=== PATIENT | male | born 1935 | race Caucasian/White ===

== ENCOUNTER 2020-09-12 10:36 | Outpatient (REF) | payer MEDICARE, SELFPAY ==
--- NOTE | 2020-09-12 | US_ITS ---
EXAMINATION: US THYROID CLINICAL INFORMATION: Thyroid nodule. COMPARISON: Ultrasound soft tissue head/neck thyroid dated 08/26/2018 and 02/12/2017. CT neck with intravenous contrast dated 09/04/2010. TECHNIQUE: Linear transducer rob-scale and color Doppler examination with attention to the region of the thyroid. FINDINGS: SIZE: Measurements of the thyroid lobes and nodules are given in sagittal, anteroposterior and transverse dimensions respectively. Right Thyroid Lobe: 5.0 x 2.0 x 1.8 cm, volume 9.7 mL. Previously 4.1 x 2.2 x 2.1 cm, volume 10.1 mL. Parenchyma: The gland echotexture is heterogeneous. Thyroid vascularity is normal. Left Thyroid Lobe: 4.7 x 1.9 x 1.6 cm, volume 7.7 mL. Previously 3.6 x 2.3 x 1.7 cm, volume 7.3 mL. Parenchyma: The gland echotexture is heterogeneous. Thyroid vascularity is normal. Isthmus: 0.3 cm in maximum AP dimension. Previously 0.4 cm. RIGHT THYROID LOBE: There are 3 nodules seen. 1. Location: Superior. Size: 0.6 x 0.4 x 0.5 cm. Previous: 0.7 x 0.5 x 0.5 cm. Nodule characteristics: Isoechoic, well-circumscribed, solid nodule with intranodular flow but no microcalcification. 2. Location: Inferior. Size: 0.5 x 0.4 x 0.5 cm. Previous: This nodule is new. Nodule characteristics: Heterogeneous, hypoechoic smoothly marginated solid nodule with intranodular flow but no microcalcification. 3. Location: Inferior. Size: 0.9 x 0.7 x 0.7 cm. Previous: 0.7 x 0.7 x 0.9 cm. Nodule characteristics: Hypoechoic smoothly marginated solid nodule with intranodular flow but no microcalcification. ISTHMUS: No nodules. LEFT THYROID LOBE: There are 2 nodules seen. 1. Location: Superior. Size: 1.8 x 0.9 x 1.5 cm. Previous: 1.6 x 0.8 x 1.1 cm. Nodule characteristics: Heterogeneous hypoechoic smoothly marginated solid nodule with no intranodular flow or microcalcification. 2. Location: Inferior. Size: 1.2 x 1.3 x 1.5 cm. Previous: 1.5 x 1.3 x 1.4 cm. Nodule characteristics: Hypoechoic smoothly marginated solid nodule with no microcalcification or internal flow. NODES: Normal size subcentimeter left neck lymph node seen, 7 mm in greatest dimension with an echogenic central fatty hilum, a benign morphologic feature.. US/US thyroid IMPRESSION: Solid bilateral thyroid nodules are present. Most are hypoechoic with smooth circumscribed margins. These would be considered intermediate suspicion for malignancy with recommendations given below. Fine-needle aspiration could be considered for the nodules greater than 1 cm in diameter including 1.8 cm and 1.5 cm nodules in the left lobe of the thyroid. Various management parameters for solitary thyroid nodules are in the literature. According to the latest 2016 [place] [employer] guidelines, recommendations for thyroid nodules are as follows: Intermediate suspicion: Hypoechoic solid nodule with smooth margins without microcalcification, extrathyroidal extension, or taller than wide shape. Estimated risk of malignancy 10-20%. Recommendation: FNA at > 1 cm. Recommend repeat ultrasound in 12-24 months for nodules measuring less than 1 cm.
== END 2020-09-12 10:37 | disposition home or self-care (01) ==
LOC: HO.US 10:36
PROVIDERS: Visit Provider Internal Medicine
DX: E04.1 Nontoxic single thyroid nodule (principal)
CPT/HCPCS: 76536

== ENCOUNTER 2020-09-19 14:58 | Outpatient (REF) | payer MEDICARE, SELFPAY ==
[2020-09-19 16:33] LABS: Thyroid Stimulating Hormone 0.92 uIU/mL (0.32-4.0)
== END 2020-09-19 14:59 | disposition home or self-care (01) ==
LOC: HO.LAB 14:58
PROVIDERS: PCP Internal Medicine; Visit Provider Internal Medicine
DX: E04.1 Nontoxic single thyroid nodule (principal)
CPT/HCPCS: 84443

== ENCOUNTER 2020-10-12 12:57 | Outpatient (REF) | payer MEDICARE, SELFPAY ==
--- NOTE | 2020-10-12 13:27 | XR_ITS ---
EXAMINATION: XR CHEST CLINICAL INFORMATION: Cough COMPARISON: 01/07/2017 TECHNIQUE: 2 views of the chest were obtained. FINDINGS: Lungs are well expanded and without acute disease. There is an old thin linear focus of scarring at the right apex. No interstitial infiltrate, consolidation or mass. Cardiomediastinal silhouette has normal size and contour. There appears to be an old fracture deformity of the right lateral fourth rib. Diffuse idiopathic skeletal hyperostosis as manifest by flowing anterior ligament ossification of the thoracic spine. XR/XR chest 2V IMPRESSION: No evidence of pneumonia. No acute cardiopulmonary findings compared to 01/07/2017.
[2020-10-12 13:35] LABS: MANUAL DIFF FLAG NO
[2020-10-12 13:38] LABS: Basophils Percent Auto 0.4 % (0-2); Eosinophils Absolute Auto 0.1 X10*3/uL (0.0-0.4); Eosinophils Percent Auto 2.1 % (0-4); Hematocrit 38.7 % (42-52); Imm Gran Abs Auto 0.01 X10*3/uL (0.00-0.03); Imm Gran Pct Auto 0.2 % (0.0-0.4); Lymphocytes Absolute Auto 1.7 X10*3/uL (1.2-4.9); Mean Corpuscular HGB Conc 33.6 g/dl (31.0-36.0); Mean Corpuscular Hemoglobin 33.8 pg (27.0-33.0); Mean Corpuscular Volume 100.5 fL (80-98); Mean Platelet Volume 9.8 fL (9.4-12.4); Monocytes Absolute Auto 0.5 X10*3/uL (0.1-1.2); Monocytes Percent Auto 10.3 % (2-11); Neutrophils Absolute Auto 2.8 X10*3/uL (2.0-8.3); Platelet Count 154 X10*3/uL (160-400); Red Blood Count 3.85 X10*6/uL (4.60-5.80); Red Cell Distribution Width 13.8 % (11.0-16.0); White Blood Count 5.2 X10*3/uL (4.8-10.8)
[2020-10-12 14:05] LABS: Prothrombin Time 11.8 SEC (10.8-13.0)
[2020-10-12 14:08] LABS: Partial Thromboplastin Time 27.2 SEC (24.1-38.0)
== END 2020-10-12 12:58 | disposition home or self-care (01) ==
LOC: HO.LAB 12:57
PROVIDERS: PCP Internal Medicine; Visit Provider Internal Medicine
DX: Z01.818 Encounter for other preprocedural examination (principal); D69.6 Thrombocytopenia, unspecified; R05 Cough
CPT/HCPCS: 36415; 71046; 85025; 85610; 85730

== ENCOUNTER → 2021-07-05 13:37 | Outpatient (BNVA) | payer MEDICARE, SELFPAY | PROVIDERS: PCP Internal Medicine; Visit Provider Internal Medicine Cardiovascular Disease | DX: I49.3 Ventricular premature depolarization (principal); I10 Essential (primary) hypertension | CPT/HCPCS: 93005; 99212 ==

== ENCOUNTER → 2021-08-22 12:03 | Outpatient (BNVA) | payer MEDICARE, SELFPAY | PROVIDERS: PCP Internal Medicine; Referring Provider Internal Medicine; Visit Provider Internal Medicine Cardiovascular Disease | DX: I49.3 Ventricular premature depolarization (principal); I10 Essential (primary) hypertension | CPT/HCPCS: 99212 ==

== ENCOUNTER → 2022-02-25 13:47 | Outpatient (BNVA) | payer MEDICARE, SELFPAY | PROVIDERS: PCP Internal Medicine; Referring Provider Internal Medicine; Visit Provider Internal Medicine Cardiovascular Disease | DX: I49.3 Ventricular premature depolarization (principal); I10 Essential (primary) hypertension; Z79.899 Other long term (current) drug therapy | CPT/HCPCS: 99212 ==

== ENCOUNTER → 2022-08-26 14:20 | Outpatient (BNVA) | payer MEDICARE, SELFPAY | PROVIDERS: PCP Internal Medicine Rheumatology; Visit Provider Internal Medicine Cardiovascular Disease | DX: I10 Essential (primary) hypertension (principal); R07.9 Chest pain, unspecified | CPT/HCPCS: 93005; 99212 ==

== ENCOUNTER → 2022-10-04 09:59 | Outpatient (REF) | payer MEDICARE, SELFPAY ==
--- NOTE | ~2022-10-04 | NM_ITS ---
Lexiscan Myocardial perfusion study Indication: Chest pain to evaluate for myocardial ischemia Technique: The patient was brought in for an Lexiscan perfusion study on 10/04/2022. Patient performed exercise as per Lexiscan protocol and was injected 30 mCi of sestamibi was given intravenously as per protocol.. Images were obtained using the SPECT gamma camera interlaced with the gating device. Images were obtained in supine position. Resting perfusion study was performed on 10/07/2022. Patient was administered 30 mCi of sestamibi intravenously at rest. Images were then obtained in supine position. Images obtained with and without CT attenuation. Total DLP 116 mGy-cm. Images were processed with the software and compared side to side in short axis, horizontal long axis and vertical long axis views. Findings: The stress perfusion study showed both attenuated as well as non attenuated corrected images show normal uptake of radiotracer in all segments of LV myocardium.. The gated study shows normal LV systolic function with calculated LVEF of greater than 70%. LV cavity is normal in size. The gated study shows normal systolic wall thickening and contraction of all segments. There is no transient ischemic dilation. Resting study shows non attenuated images show normal uptake of radiotracer in all segments of LV myocardium. Gating at rest was not performed due to frequent PVCs. The findings are consistent with normal myocardial perfusion. NM/NM francisco j perf SPECT rest & str Impression: 1. Normal myocardial perfusion 2. Gated LVEF is greater than 70% 3. Transient ischemic dilatation not present EKG was nondiagnostic for ischemia
--- NOTE | 2022-10-04 09:59 | CA_ITS ---
Acquisition Time: 2022-10-04 10:16:05 Total Exercise Time: 00:01:03 Test Indications: CHEST PAIN Medications: Protocol: MOD KEITH Max HR: 096 BPM 72% of Pred: 133 BPM Max BP: 158/058 mmHG Max Work Load: 1.4 METS Exercise stress test with exercise 1 min 3 sec of Modified Keith protocol ( speed had been reduced to 1.4MPH) and patient needed to stop due to fatigue and inability to keep up with speed of treadmill. He was assisted to sitting position. Testing changed to a pharmacological stress test with Lexiscan injection, while sitting and kicking his legs, without anginal symptoms, with isolated PVCs, with normotensive response to injection, with nondiagnostic EKG for ischemia. In recovery he reported fatigue that was treated with Aminophylline 75mg IVP to reverse Lexiscan with resolution of symptom. Nuclear images pending. Test reviewed with Dr Mosley. Referred By: Carmelo Mosley Overread By: RANJIT CALERO
== END ==
LOC: HO.CARD 09:59
PROVIDERS: PCP Internal Medicine; Visit Provider Internal Medicine Cardiovascular Disease
DX: R07.9 Chest pain, unspecified (principal)
CPT/HCPCS: 78452; 93017; A9500; J0280; J2785

== ENCOUNTER → 2023-01-22 13:04 | Outpatient (BNVA) | payer MEDICARE, SELFPAY | PROVIDERS: PCP Obstetrics & Gynecology; Visit Provider Internal Medicine Cardiovascular Disease | DX: R07.9 Chest pain, unspecified (principal); I49.3 Ventricular premature depolarization; I10 Essential (primary) hypertension | CPT/HCPCS: 99212 ==

== ENCOUNTER → 2023-04-22 14:37 | Outpatient (BNVA) | payer MEDICARE, SELFPAY | PROVIDERS: PCP Internal Medicine; Referring Provider Internal Medicine; Visit Provider Nurse Practitioner Family | DX: R07.9 Chest pain, unspecified (principal); I49.3 Ventricular premature depolarization; I10 Essential (primary) hypertension; K21.9 Gastro-esophageal reflux disease without esophagitis; Z79.899 Other long term (current) drug therapy | CPT/HCPCS: 93005; 99212 ==

== ENCOUNTER 2023-07-03 11:17 | Outpatient (REF) | payer MEDICARE, SELFPAY ==
[2023-07-03 11:34] LABS: MANUAL DIFF FLAG NO
[2023-07-03 11:58] LABS: Basophils Percent Auto 0.3 % (0-2); Eosinophils Absolute Auto 0.2 X10*3/uL (0.0-0.4); Eosinophils Percent Auto 2.7 % (0-4); Hematocrit 36.5 % (42.0-52.0); Hemoglobin 12.3 g/dl (14.0-18.0); Imm Gran Abs Auto 0.01 X10*3/uL (0.00-0.03); Imm Gran Pct Auto 0.2 % (0.0-0.4); Lymphocytes Percent Auto 32.7 % (20-40); Mean Corpuscular HGB Conc 33.7 g/dl (31.0-36.0); Mean Corpuscular Hemoglobin 33.6 pg (27.0-33.0); Mean Corpuscular Volume 99.7 fL (80.0-98.0); Mean Platelet Volume 10.4 fL (9.4-12.4); Monocytes Absolute Auto 0.6 X10*3/uL (0.1-1.2); Neutrophils Absolute Auto 3.3 x10*3/uL (2.0-8.3); Neutrophils Percent Auto 54.1 % (45-73); Platelet Count 156 X10*3/uL (160-400); Red Blood Count 3.66 X10*6/uL (4.60-5.80); Red Cell Distribution Width 13.3 % (11.0-16.0)
[2023-07-03 12:49] LABS: Anion Gap 11 (12-20); Blood Urea Nitrogen 20 mg/dL (9-16); Calcium 9.3 mg/dL (8.4-10.2); Carbon Dioxide 28 mmol/L (22-29); Chloride 105 mmol/L (96-108); Estimated Glomerular Filt Rate > 60; Glucose Random 103 mg/dL (60-115); Potassium 4.1 mmol/L (3.3-5.1); Sodium 140 mmol/L (135-145)
== END 2023-07-03 11:18 | disposition home or self-care (01) ==
LOC: HO.LAB 11:17
PROVIDERS: Visit Provider Nurse Practitioner Family
DX: R07.9 Chest pain, unspecified (principal); I21.4 Non-ST elevation (NSTEMI) myocardial infarction; R93.89 Abnormal findings on diagnostic imaging of other specified body structures
CPT/HCPCS: 36415; 80048; 85025; 85610

== ENCOUNTER → 2023-07-17 23:59 | Outpatient (BNV) | payer MEDICARE, SELFPAY | PROVIDERS: PCP Internal Medicine; Visit Provider Internal Medicine Cardiovascular Disease | DX: I21.4 Non-ST elevation (NSTEMI) myocardial infarction (principal) | CPT/HCPCS: 93458; 93571; 99152 ==

== ENCOUNTER 2023-08-04 13:36 | Outpatient (AMB) | payer MEDICARE, SELFPAY ==
[2023-08-04 13:38] VITALS: BP 140/72; PULSE 57; BMI 30.6
--- NOTE | 2023-08-04 13:38 | A.OFFVIS_ITS ---
Intake Vital Signs 08/04/23 13:38 Height 5 ft 11 in Weight 219 lb 9.286 oz BMI 30.6 BP 140/72 H Blood Pressure Location Rt brachial Position Sitting Pulse 57 Pulse Source Pulse Oximeter Intake Visit Reasons: 3 mth f/up per dc Intake Note: 3 month f/u Allergies Penicillin Allergy (Unknown, Uncoded 04/22/23 14:41) hives Medication List - Last Reconciled 08/04/23 by Carmelo Mosley MD aspirin (Adult Low Dose Aspirin) 81 mg PO DAILY atorvastatin 40 mg PO DAILY cholecalciferol (vitamin D3) 25 mcg PO DAILY clopidogrel 75 mg PO DAILY hydrochlorothiazide 12.5 mg PO DAILY lorazepam 1 mg PO TID PRN metoprolol succinate ER mg PO pantoprazole 40 mg PO DAILY phenytoin sodium extended (Dilantin Extended) 100 mg PO TID saw palmetto 1,350 mg PO BID tamsulosin 0.4 mg PO DAILY vitamin B complex (B Complex-Vitamin B12 tablet) 1 tab PO DAILY HPI HPI Comments History of Present Illness Details 88-year-old gentleman who is presenting for follow-up. He had NSTEMI in setting of septic shock and significantly elevated troponin levels with some dynamic EKG changes. He underwent stress testing followed by coronary CTA showed LAD disease. After discussion he was taken for cardiac catheterization. He was noticed to have diffuse LAD disease which on IFR pullback showed did not show any discrete area of stenosis and the gradient was diffuse. He was also not complaining of significant symptoms at the time he came for cardiac catheterization. We decided to medically treat him. His returning and is complaining of fatigue and tiredness. He is saying his starting some physiotherapy and exercise program. His blood pressure control is otherwise good. He is complaining of some numbness in the left hand fingers and will be discussing with his neurologist in 1 week. [facility] Medical History (Updated 08/04/23 @ 14:36 by Carmelo Mosley MD) Abnormal computed tomography angiography (CTA) HTN (hypertension) GERD (gastroesophageal reflux disease) Surgical History History of blepharoplasty History of back surgery History of neck surgery Hx of cataract surgery Family History Father CVD (cardiovascular disease) Social History Alcohol intake: never Patient Tobacco Use Status: Never used Tobacco Review of Systems ENT Reports dizziness Card Denies chest pain, Denies chest pain at rest, Denies chest pain with activity, Denies rapid heart rate, Denies pedal edema, Denies edema, Denies leg edema, Denies lightheadedness, Denies palpitations, Denies dyspnea, Denies dyspnea on exertion and Denies orthopnea Resp Denies cough, Denies dyspnea and Denies dyspnea on exertion GI Denies hematochezia and Denies change in stool character Musc Denies abnormal gait, Reports limited range of motion, Reports muscle cramps, Denies muscle weakness, Denies numbness, Denies radiating pain into limb, Denies stiffness and Denies tingling Neuro Denies abnormal gait, Reports dizziness, Denies numbness and Denies tingling Endo Denies palpitations Physical Exam Vital Signs: Last Vital Signs Pulse 57 08/04/23 13:38 BP 140/72 H 08/04/23 13:38 BMI result Body Mass Index 30.6 GENERAL APPEARANCE: in no acute distress, pleasant. NECK: no carotid bruit, no jugular venous distention. SKIN: no suspicious lesions, warm and dry. HEART: no murmurs, regular rhythm. LUNGS: clear to auscultation bilaterally. ABDOMEN: soft, nontender. PERIPHERAL PULSES: equal. NEUROLOGIC: No gross deficits, AAO X 3 Assessment & Plan Assessment & Plan (1) Essential hypertension: Code(s): I10 - Essential (primary) hypertension (2) Coronary artery disease: Code(s): I25.10 - Atherosclerotic heart disease of [place] coronary artery without angina pectoris (3) Stable angina: Code(s): I20.89 - Other forms of angina pectoris Plan 88-year-old gentleman with stable coronary artery disease. He had NSTEMI in the setting of septic shock. Cardiac catheterization has shown diffuse gradient across the LAD and no focal area of stenosis. Angiographically the LAD did not look critical or severe. He has no significant symptoms currently. I have advised him to stop the Plavix and take aspirin only. He is on atorvastatin 40 mg daily. Blood pressure control is reasonable. Left hand numbness is related to neck issues and he will discuss with his neurologist. Thank you for allowing me to participate in the care of your patient. Please f eel free to contact me if you have any questions. Coding Level of Care Code Est Pt Level 4 (01432) Diagnoses Essential hypertension I10 Coronary artery disease I25.10 Stable angina I20.89
== END 2023-08-04 14:02 | disposition home or self-care (01) ==
PROVIDERS: PCP Internal Medicine; Visit Provider Internal Medicine Cardiovascular Disease
DX: I10 Essential (primary) hypertension (principal); I25.10 Atherosclerotic heart disease of native coronary artery without angina pectoris; I20.89 Other forms of angina pectoris
CPT/HCPCS: 99214

== ENCOUNTER → 2023-08-04 13:36 | Outpatient (BNVA) | payer MEDICARE, SELFPAY | PROVIDERS: PCP Internal Medicine; Visit Provider Internal Medicine Cardiovascular Disease | DX: I21.4 Non-ST elevation (NSTEMI) myocardial infarction (principal); R65.21 Severe sepsis with septic shock; I25.118 Atherosclerotic heart disease of native coronary artery with other forms of angina pectoris; I10 Essential (primary) hypertension; I23.7 Postinfarction angina | CPT/HCPCS: 99212 ==

== ENCOUNTER 2023-11-10 12:51 | Outpatient (AMB) | payer MEDICARE, SELFPAY ==
[2023-11-10 12:57] VITALS: BP 120/62; PULSE 62; BMI 31.1
--- NOTE | 2023-11-10 12:57 | A.OFFVIS_ITS ---
Intake Vital Signs 11/10/23 12:57 Height 5 ft 11 in Weight 222 lb 10.67 oz BMI 31.1 BP 120/62 Blood Pressure Location Lt brachial Pulse 62 Pulse Source Pulse Oximeter Intake Visit Reasons: 3 mth f/up km Investigative Writer Required: No Allergies Penicillin Allergy (Unknown, Uncoded 04/22/23 14:41) hives Medication List - Last Reconciled 11/10/23 by LETTY GomesC aspirin (Adult Low Dose Aspirin) 81 mg PO DAILY atorvastatin 40 mg PO DAILY cholecalciferol (vitamin D3) 25 mcg PO DAILY clopidogrel (Plavix) 75 mg PO DAILY hydrochlorothiazide 12.5 mg PO DAILY lorazepam 1 mg PO TID PRN metoprolol succinate ER mg PO pantoprazole 40 mg PO DAILY phenytoin sodium extended (Dilantin Extended) 100 mg PO TID saw palmetto 1,350 mg PO BID tamsulosin 0.4 mg PO DAILY vitamin B complex (B Complex-Vitamin B12 tablet) 1 tab PO DAILY HPI 3 mth f/up km HPI Details Timothy is an 88-year-old male with past medical history of hypertension, PVCs, right bundle branch block, sepsis with elevated troponins, secondary NSTEMI last spring who recently underwent cardiac catheterization showing moderate LAD stenosis which is managed medically. Today he presents for follow-up sitting in a wheelchair. He tells me he was getting out of a vehicle trying to use his walker and it tipped over causing him to fall and fracture his pelvis. He initially was in rehab however now he is home with physical therapy. He denies much discomfort. No chest discomfort at rest or with activity. No shortness of breath, palpitations, presyncope, syncope, PND, orthopnea or edema. His son and friend are present. They confirm he is taking his medications. [facility] Medical History Abnormal computed tomography angiography (CTA) HTN (hypertension) GERD (gastroesophageal reflux disease) Surgical History History of blepharoplasty History of back surgery History of neck surgery Hx of cataract surgery Family History Father CVD (cardiovascular disease) Social History Alcohol intake: never Patient Tobacco Use Status: Never used Tobacco Review of Systems Const Details: sitting in wheelchair All systems reviewed & are unremarkable except as noted in HPI and below ENT Denies dizziness Card Denies chest pain, Denies chest pain at rest, Denies chest pain with activity, Denies rapid heart rate, Denies pedal edema, Denies edema, Denies leg edema, Denies lightheadedness, Denies palpitations, Denies dyspnea, Denies dyspnea on exertion and Denies orthopnea Resp Denies cough, Denies dyspnea and Denies dyspnea on exertion GI Denies hematochezia and Denies change in stool character Musc Details: recovering from pelvic fracture Reports abnormal gait, Reports limited range of motion, Denies muscle cramps, Denies muscle weakness, Denies numbness, Denies radiating pain into limb, Denies stiffness and Denies tingling Neuro Reports abnormal gait, Denies dizziness, Denies numbness and Denies tingling Endo Denies palpitations Physical Exam Vital Signs: Last Vital Signs Pulse 62 11/10/23 12:57 BP 120/62 11/10/23 12:57 BMI result Body Mass Index 31.1 Const General: cooperative, healthy appearing, comfortable and no acute distress Orientation/consciousness: patient oriented x3 Neck Neck: Yes normal visual inspection Resp Effort & Inspection: normal respiratory effort Auscultation: clear to auscultation bilaterally, no crackles, no rales, no rhonchi and no wheezes Cardio Jugular venous distension: no JVD Rate: regular rate Rhythm: regular rhythm Heart sounds: S1 normal heart sound present, S2 normal heart sound present, no murmurs and no rubs Neuro General: patient oriented x3 Extrem Other: Tight bilateral lower leg edema to the level of his knees, right greater than left General: No normal to inspection and Yes no pedal edema Psych Appearance: grossly normal Mental Status: mental status grossly normal Speech and movement: Normal speech and movement present Assessment & Plan Assessment & Plan (1) Chest pain: Code(s): R07.9 - Chest pain, unspecified Plan: On prior visit reported atypical sounding Chest area discomfort, as well as a intermittent burning in his chest and up to his throat at times. He tells me he has a history of a hiatal hernia and has had reflux issues for a long time. He now follows with GI. Cardiac evaluation has included nuclear stress test done 10/04/2022 showing normal myocardial perfusion imaging, EF 70%. Last echo in our system was done 06/01/2020 showing normal EF and no valve abnormalities. He did have secondary NSTEMI in the setting of sepsis spring 2022. Echo done at [facility] showed EF 65-70% no regional wall motion abnormality. He then had a CTA of the coronary arteries followed by cardiac catheterization which did show moderate LAD is stenosis, iFR 0.91, managed medically. At this time he denies any anginal sounding chest discomfort. Continue aspirin indefinitely. Continue atorvastatin with ideal LDL goal less than 70. Continue metoprolol. Plavix was stopped on last visit however he continued it until he ran out recently. Signs and symptoms of angina reviewed with him. (2) PVC (premature ventricular contraction): Code(s): I49.3 - Ventricular premature depolarization Plan: History of PVCs. A Holter monitor done on 05/08/2020 showed sinus rhythm rate 64, with frequent PVCs, 17%. He has been on metoprolol. Today he denies having any concerning heart palpitations. No PVCs noted on last EKG tracing. Will continue current management. (3) Essential hypertension: Code(s): I10 - Essential (primary) hypertension Plan: Normal range today. He is on hydrochlorothiazide and metoprolol. He has significant bilateral lower leg edema. Will change his hydrochlorothiazide over to Lasix. Plan for labs in 2 weeks. (4) Edema: Code(s): R60.9 - Edema, unspecified Plan: Noted to have significant bilateral lower leg edema. Right greater than left. Mild pinkness but no evidence of clear cellulitis. He is on hydrochlorothiazide. Last echo shows normal EF. This increase could be that he is now sedentary, sitting in a wheelchair and legs are dependent. Will have him stop hydrochlorothiazide and change to low-dose Lasix. Labs in 2 weeks. Reviewed leg elevation, compression stocking use and low-salt diet. BMP, BNP and adding lipids. Cardiology follow-up in 4 months, sooner if needed (5) GERD (gastroesophageal reflux disease): Code(s): K21.9 - Gastro-esophageal reflux disease without esophagitis Plan: Follows with GI Plan Time spent on chart review, documentation, interview and assessment Orders: Orders Lipid Panel Today I25.10 - Atherosclerotic heart disease of [id number] coronary artery without angina pectoris Basic Metabolic Panel Today I10 - Essential (primary) hypertension B Type Natriuretic Peptide Today R60.9 - Edema, unspecified Medications: New furosemide (Lasix) 20 mg PO DAILY 90 tabs 1RF Discontinued hydrochlorothiazide Discontinued Reason: Change Referral Type 12.5 mg PO DAILY 90 tabs 3RF I10 - Essential (primary) hypertension Coding Level of Care Code Est Pt Level 4 (14421) Diagnoses Chest pain R07.9 PVC (premature ventricular contraction) I49.3 Essential hypertension I10 Edema R60.9 GERD (gastroesophageal reflux disease) K21.9 Time Spent (min) 28
== END 2023-11-10 13:35 | disposition home or self-care (01) ==
PROVIDERS: PCP Internal Medicine; Visit Provider Nurse Practitioner Family
DX: R07.9 Chest pain, unspecified (principal); I49.3 Ventricular premature depolarization; I10 Essential (primary) hypertension; R60.9 Edema, unspecified; K21.9 Gastro-esophageal reflux disease without esophagitis
CPT/HCPCS: 99214

== ENCOUNTER → 2023-11-10 12:51 | Outpatient (BNVA) | payer MEDICARE, SELFPAY | PROVIDERS: PCP Internal Medicine; Visit Provider Nurse Practitioner Family | DX: R07.9 Chest pain, unspecified (principal); R60.9 Edema, unspecified; I10 Essential (primary) hypertension; I49.3 Ventricular premature depolarization; K21.9 Gastro-esophageal reflux disease without esophagitis | CPT/HCPCS: 99212 ==

== ENCOUNTER 2023-11-28 14:08 | Outpatient (REF) | payer MEDICARE, SELFPAY ==
[2023-11-28 16:02] LABS: B Type Natriuretic Peptide 169 pg/mL (<100)
[2023-11-28 16:05] LABS: Anion Gap 13 (12-20); Blood Urea Nitrogen 24 mg/dL (9-16); Calcium 9.3 mg/dL (8.4-10.2); Carbon Dioxide 28 mmol/L (22-29); Chloride 107 mmol/L (96-108); Cholesterol 152 mg/dL (<200); Estimated Glomerular Filt Rate > 60; Glucose Random 106 mg/dL (60-115); HDL Cholesterol 42 mg/dL (>40); LDL Cholesterol Calculated 83 mg/dL (<100); Potassium 4.8 mmol/L (3.3-5.1); Sodium 143 mmol/L (135-145); Triglycerides 137 mg/dL (<150)
== END 2023-11-28 14:09 | disposition home or self-care (01) ==
LOC: HO.LAB 14:08
PROVIDERS: Visit Provider Nurse Practitioner Family
DX: I10 Essential (primary) hypertension (principal); R60.9 Edema, unspecified; I25.10 Atherosclerotic heart disease of native coronary artery without angina pectoris
CPT/HCPCS: 36415; 80048; 80061; 83880

== ENCOUNTER 2024-03-17 14:27 | Outpatient (AMB) | payer MEDICARE, SELFPAY ==
--- NOTE | 2024-03-17 14:33 | A.OFFVIS_ITS ---
Vital Signs 03/17/24 14:34 Height 5 ft 11 in Weight 221 lb 5.506 oz BMI 30.9 BP 130/62 Blood Pressure Location Lt brachial Position Sitting Pulse 83 Pulse Source Pulse Oximeter Intake Visit Reasons: 4 mth f/up Bookstore Manager Required: No Accompanied by: Son Allergies Penicillin Allergy (Unknown, Uncoded 04/22/23 14:41) hives Medication List - Last Reconciled 03/17/24 by Carmelo Mosley MD aspirin (Adult Low Dose Aspirin) 81 mg PO DAILY atorvastatin 40 mg PO DAILY cholecalciferol (vitamin D3) 25 mcg PO DAILY furosemide (Lasix) 20 mg PO DAILY lorazepam 1 mg PO TID PRN metoprolol succinate ER 50 mg PO DAILY pantoprazole 40 mg PO DAILY phenytoin sodium extended (Dilantin Extended) 100 mg PO TID saw palmetto 1,350 mg PO BID tamsulosin 0.4 mg PO DAILY vitamin B complex (B Complex-Vitamin B12 tablet) 1 tab PO DAILY HPI Comments Details: 88-year-old gentleman who is presenting for follow-up. He had NSTEMI in setting of septic shock and significantly elevated troponin levels with some dynamic EKG changes. He underwent stress testing followed by coronary CTA showed LAD disease. After discussion he was taken for cardiac catheterization. He was noticed to have diffuse LAD disease which on IFR pullback showed did not show any discrete area of stenosis and the gradient was diffuse. He was also not complaining of significant symptoms at the time he came for cardiac catheterization. We decided to medically treat him. His returning and is complaining of fatigue and tiredness. He is saying his starting some physiotherapy and exercise program. His blood pressure control is otherwise good. He is complaining of some numbness in the left hand fingers and will be discussing with his neurologist in 1 week. 03/17/24: He returns for follow-up. Unfortunately had a fall and broke his right hip. He had surgery but his leg length is slightly shortened the the left side and is waiting for special boot so he can walk around. He has bilateral lower extremity edema. Apparently the hydrochlorothiazide was substituted to Lasix 20 mg daily. He has no other symptoms. No dyspnea, chest pain orthopnea or PND. [facility] Medical History Abnormal computed tomography angiography (CTA) HTN (hypertension) GERD (gastroesophageal reflux disease) Surgical History History of blepharoplasty History of back surgery History of neck surgery Hx of cataract surgery Family History Father CVD (cardiovascular disease) Social History Alcohol intake: never Patient Tobacco Use Status: Never used Tobacco Review of Systems Const Denies chills, Denies fatigue, Denies fever(s), Denies frequent falls, Denies weakness, Denies weight gain and Denies weight loss ENT Denies dizziness Card Denies chest pain, Denies leg edema, Denies lightheadedness, Denies palpitations, Denies dyspnea and Denies dyspnea on exertion Resp Denies cough, Denies dyspnea and Denies dyspnea on exertion GI Denies hematochezia Musc Denies abnormal gait, Denies muscle weakness, Denies numbness, Denies radiating pain into limb and Denies tingling Neuro Denies abnormal gait, Denies dizziness, Denies frequent falls, Denies numbness, Denies tingling and Denies weakness Endo Denies fatigue and Denies palpitations Physical Exam Vital Signs: Last Vital Signs Pulse 83 03/17/24 14:34 BP 130/62 03/17/24 14:34 BMI result Body Mass Index 30.9 GENERAL APPEARANCE: in no acute distress, pleasant. NECK: no carotid bruit, no jugular venous distention. SKIN: no suspicious lesions, warm and dry. HEART: no murmurs, regular rhythm. LUNGS: clear to auscultation bilaterally. ABDOMEN: soft, nontender. PERIPHERAL PULSES: equal. NEUROLOGIC: No gross deficits, AAO X 3 Extremities: 1 to 2+ edema. Assessment & Plan Assessment & Plan (1) Stable angina: Code(s): I20.89 - Other forms of angina pectoris Category: Medical (2) Essential hypertension: Code(s): I10 - Essential (primary) hypertension Category: Medical Plan Pleasant 88-year-old gentleman who is here for follow-up. He has known history of coronary disease based on cardiac catheterization. Apparently had a type 2 [place] in the setting of sepsis and subsequently underwent stress testing and then cardiac catheterization. He was noticed to have a moderate LAD stenosis which was diffuse disease and IFR was abnormal. We decided to medically manage him. He has done well with this strategy. He underwent hip surgery successfully and will be starting some rehab. He has some peripheral edema but this is not due to congestive heart failure. He is on 20 mg of Lasix which can be increased if his edema worsens. Otherwise blood pressure control is good. He will see us back in 6 months. Thank you for allowing me to participate in the care of your patient. Please feel free to contact me if you have any questions. Coding Level of Care Code Est Pt Level 4 (73643) Diagnoses Stable angina I20.89 Essential hypertension I10
[2024-03-17 14:34] VITALS: BP 130/62; PULSE 83; BMI 30.9
== END 2024-03-17 15:03 | disposition home or self-care (01) ==
PROVIDERS: PCP Internal Medicine; Visit Provider Internal Medicine Cardiovascular Disease
DX: I20.89 Other forms of angina pectoris (principal); I10 Essential (primary) hypertension
CPT/HCPCS: 99214

== ENCOUNTER → 2024-03-17 14:27 | Outpatient (BNVA) | payer MEDICARE, SELFPAY | PROVIDERS: PCP Internal Medicine; Visit Provider Internal Medicine Cardiovascular Disease | DX: I20.89 Other forms of angina pectoris (principal); I10 Essential (primary) hypertension | CPT/HCPCS: 99212 ==

== ENCOUNTER 2024-11-24 15:52 | Outpatient (AMB) | payer MEDICARE, SELFPAY ==
[2024-11-24 15:54] VITALS: BP 110/68; PULSE 58; BMI 31.9
--- NOTE | 2024-11-24 15:54 | MHC.OFFVIS ---
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 Accompanied by: Son Allergies Penicillin Allergy (Unknown, Uncoded 04/22/23 14:41) hives Medication List - Last Reconciled 11/24/24 by Carmelo Mosley MD aspirin (Adult Low Dose Aspirin) 81 mg PO DAILY atorvastatin 40 mg PO DAILY cholecalciferol (vitamin D3) 25 mcg PO DAILY furosemide (Lasix) 20 mg PO DAILY lorazepam 1 mg PO TID PRN metoprolol succinate ER 50 mg PO DAILY pantoprazole 40 mg PO DAILY phenytoin sodium extended (Dilantin Extended) 100 mg PO TID saw palmetto 1,350 mg PO BID tamsulosin 0.4 mg PO DAILY vitamin B complex (B Complex-Vitamin B12 tablet) 1 tab PO DAILY HPI Comments Details: 88-year-old gentleman who is presenting for follow-up. He had NSTEMI in setting of septic shock and significantly elevated troponin levels with some dynamic EKG changes. He underwent stress testing followed by coronary CTA showed LAD disease. After discussion he was taken for cardiac catheterization. He was noticed to have diffuse LAD disease which on IFR pullback showed did not show any discrete area of stenosis and the gradient was diffuse. He was also not complaining of significant symptoms at the time he came for cardiac catheterization. We decided to medically treat him. His returning and is complaining of fatigue and tiredness. He is saying his starting some physiotherapy and exercise program. His blood pressure control is otherwise good. He is complaining of some numbness in the left hand fingers and will be discussing with his neurologist in 1 week. 03/17/24: He returns for follow-up. Unfortunately had a fall and broke his right hip. He had surgery but his leg length is slightly shortened the the left side and is waiting for special boot so he can walk around. He has bilateral lower extremity edema. Apparently the hydrochlorothiazide was substituted to Lasix 20 mg daily. He has no other symptoms. No dyspnea, chest pain orthopnea or PND. 11/24/2024: He is here for follow-up. He is complaining of hip pain after right hip fracture and saying that it did not heal completely. Due to lack of activity he has some shortness of breath with activities. Denying chest discomfort. Blood pressure well controlled. [facility] Medical History Abnormal computed tomography angiography (CTA) HTN (hypertension) GERD (gastroesophageal reflux disease) Surgical History History of blepharoplasty History of back surgery History of neck surgery Hx of cataract surgery Family History Father CVD (cardiovascular disease) Social History Alcohol intake: never Patient Tobacco Use Status: Never used Tobacco Review of Systems Const Denies chills, Denies fatigue, Denies fever(s), Denies frequent falls, Denies weakness, Denies weight gain and Denies weight loss ENT Denies dizziness Card Denies chest pain, Denies leg edema, Denies lightheadedness, Denies palpitations, Denies dyspnea and Denies dyspnea on exertion Resp Denies cough, Denies dyspnea and Denies dyspnea on exertion GI Denies hematochezia Musc Denies abnormal gait, Denies muscle weakness, Denies numbness, Denies radiating pain into limb and Denies tingling Neuro Denies abnormal gait, Denies dizziness, Denies frequent falls, Denies numbness, Denies tingling and Denies weakness Endo Denies fatigue and Denies palpitations Physical Exam Vital Signs: Last Vital Signs Pulse 58 11/24/24 15:54 BP 110/68 11/24/24 15:54 BMI result Body Mass Index 31.9 GENERAL APPEARANCE: in no acute distress, pleasant. NECK: no carotid bruit, no jugular venous distention. SKIN: no suspicious lesions, warm and dry. HEART: no murmurs, regular rhythm. LUNGS: clear to auscultation bilaterally. ABDOMEN: soft, nontender. PERIPHERAL PULSES: equal. NEUROLOGIC: No gross deficits, AAO X 3 Extremities: 1+ edema. Office Procedures EKG Details: Sinus bradycardia 58 beats per minute, right bundle-branch block, left anterior fascicular block, fusion beats, left ventricular hypertrophy, QTC 457 milliseconds. [id number], Complete Assessment & Plan Assessment & Plan (1) Stable angina: Code(s): I20.89 - Other forms of angina pectoris Category: Medical (2) Coronary artery disease: Code(s): I25.10 - Atherosclerotic heart disease of kake coronary artery without angina pectoris Category: Medical (3) Essential hypertension: Code(s): I10 - Essential (primary) hypertension Category: Medical Plan Pleasant 89-year-old gentleman who is here for follow-up. He has known history of coronary disease based on cardiac catheterization. Apparently had a type 2 UT in the setting of sepsis and subsequently underwent stress testing and then cardiac catheterization. He was noticed to have a moderate LAD stenosis which was diffuse disease and IFR was abnormal. We decided to medically manage him. He has done well with this strategy. He had hip fracture and continues to have some hip pain despite surgery. Clinically not in heart failure. In his day-to-day life he does not get any significant chest discomfort or symptoms. Stable and will see us back in 4 months. Thank you for allowing me to participate in the care of your patient. Please feel free to contact me if you have any questions. Coding Level of Care Code Est Pt Level 4 (00633) Diagnoses Stable angina I20.89 Coronary artery disease I25.10 Essential hypertension I10 CPT Codes EKG - CPT: 57562-[id number], Complete ([id number])
--- OUTSIDE RECORDS SUMMARY | 2024-11-24 18:03 | XMS_ITS | Encounter Summary ---
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 This section includes the names of all active insurance providers for the patient. Insurance Provider Type of Coverage Plan Name Start of Policy Coverage End of Policy Coverage Group Number Member ID Insurance Provider's Telephone Number Policy Rdz's Name Patient's Relationship to Policy Rdz [place] MEDICARE SUPPLEMEN [place] DO NOT USE Jan 01, 2006 [id number] DISHA MASON PATIENT ANTHE[place]BS OF [place] (BLUECARD) MEDICARE SUPPLEMEN [place] PSUED O MEDEX BRONZ E Jan 01, 2006 [id number] WIDISHA BOO PATIENT [place] MEDEX [place]ON[place] E Jan 01, 2006 [id number] DISHA MAS[place] PSUED [place] MEDEX BRONZ E Jan 01, 2006 [id number] [phone] DISHA MASON PATIENT MEDICARE (WNR) MEDICARE (M) PART A Jul 04, 2000 PART A [id number] DISHA MASON PATIENT MEDICARE (WNR) MEDICARE (M) PART B Jul 04, 2000 PART B [id number] [phone] WIDISHA BOO PATIENT MEDICARE (WNR) MEDICARE (M) PART A Jul 04, 2000 PART A [id number] WIATERDISHA PATIENT MEDICARE (WNR) MEDICARE (M) PART B Jul 04, 2000 PART B [id number] [phone] WIATERDISHA PATIENT MEDICARE (WNR) MEDICARE (M) PART A Jul 04, 2000 PART A [id number] WIATERDISHA PATIENT MEDICARE (WNR) MEDICARE (M) PART B Jul 04, 2000 PART B [id number] DISHA MASON PATIENT Selected Encounter This section includes the information on record at [place] for the Encounter. Date/Time Encounter Type Encounter Description Reason Provider Source March 11, 2024 02:30 PM OFFICE O/P EST MOD 30 MIN PRIMARY CARE/MEDICINE ICD-10-CM I87.8 Other specified disorders of veins FURCOLO,JUDAH E Encounter Template Text not used by [place] Assessments - Encounter Diagnoses This section includes the primary and secondary diagnoses documented for the Encounter. Date/Time Primary/Secondary Diagnosis Diagnosis Name Provider Source March 12, 2024 03:52 PM PRIMARY Other specified disorders of veins FURCOLO,JUDAH [place] [facility] [place] [facility] March 12, 2024 03:52 PM SECONDARY Essential (primary) hypertension [facility] [place] [facility] [place] [facility] Plan of Treatment: Future Appointments (+ 6 months) and Future Tests (+/- 45 days) The Plan of Treatment section includes future care activities for the patient from all [place] treatmentfacilities. This section includes future appointments and future orders which are active, pending or scheduled. Future Appointments This section includes appointments that were scheduled to occur 6 months from the date of the Encounter, up to a maximum of 20 appointments. The data comes from all [place] treatment facilities. Appointment Date/Time Appointment Type Appointme nt Facility Name March 15, 2024 08:00 AM AMBULATORY - [facility]INE [facility] [place] [facility] Jun 16, 2024 03:00 PM AMBULATORY [facility]INE [facility] [place] [facility] Jun 23, 2024 08:30 AM AMBULATORY - REHAB MEDICIN E [facility] [place] [facility] Jul 19, 2024 03:00 PM AMBULATORY - REHAB MEDICIN E [facility] [place] [facility] Aug 11, 2024 02:00 PM AMBULATORY - REHAB MEDICIN E [facility] [place] [facility] Vital Signs: All taken on the encounter date This section contains inpatient and outpatient Vital Signs collected on the date of the Encounter. Date/Time Temperature Pulse Blood Pressure Respiratory Rate SP02 Pain Height Weight Body Mass Index Source March 11, 2024 03:17 PM 159/72 [facility] [place] [facility] March 11, 2024 02:49 PM 98.3 66 178/69 16 96 222 33 [facility] [place] [facility] Social History: Smoking Status (Most current) and Tobacco Use (All prior to encounter date) This section includes the most current, and the historical, smoking and tobacco- related health factors from the [place] facility where the Encounter took place. Current Smoking Status This section includes the most current smoking, or tobacco-related health factor, from the [place] facility where the Encounter took place. Date/Time Current Smoking Status Comment Estephania vazquez Nov 20, 2023 02:00 PM VA-TOBACCO NEVER USED [facility] [place] [facility] Tobacco Use History This section includes a history of the smoking, or tobacco-related health factors, that were collected on or before the date of the Encounter. The data comes from the [place] facility where the Encounter took place. Date/Time Smoking Status/Tobacco Use Comment F acility Dec 10, 2022 01:00 PM VA-TOBACCO NEVER USED [facility] [place] [facility] Nov 26, 2021 10:00 AM VA-TOBACCO NEVER USED [facility] [place] [facility] Jul 04, 2020 10:30 AM VA-TOBACCO NEVER USED [facility] [place] [facility] May 25, 2019 11:50 AM VA-TOBACCO NEVER USED [facility] [place] [facility] Jun 05, 2018 09:35 AM QUIT TOBACCO USE > 7 YEARS AGO [facility] [place] [facility] May 22, 2017 02:07 PM LIFETIME NON-TOBACCO USER [place] [facility] Encounter Notes: All associated encounter notes This section contains the clinical notes associated to the Encounter. Date/Time Encounter Note(s) Provider Source March 11, 2024 02:48 PM PHYSICIAN NOTE: LOCAL TITLE: MD NOTE STANDARD TITLE: PHYSICIAN NOTE DATE OF NOTE: MARCH 11, 2024@14:48 ENTRY DATE: MARCH 11, 2024@14:48:15 AUTHOR: JUDAH VERNON COSIGNER: URGENCY: STATUS: COMPLETED WIATER,JOSUE TABOR is a 88 year old WHITE MALE who is being seen today in primary care for routine follow up. CARE TEAM Community Primary Care Provider: [place] Specialists: Community Specialists: HISTORY PERIOD OF SERVICE - [place] [facility] CONNECTED % - NONE FOUND HISTORY OF PRESENT ILLNESS secure messaging: C/O NON-HEALING WOUND TO L MCADAMS X AT LEAST 6 MONTHS. (started after his left hip fx 6 mo ago) STATES [facility] WAS INITIALLY COMING TO MANAGE THE WOUND BUT THEY DISCHARGED HIM APPROXIMATELY 2 WEEKS AGO. STATES WOUND IS STATUS QUO, NOT WORSENING BUT NOT HEALING EITHERX 6 MONTHS. STATES HE HAS THIN CLEAR, WATERY FLUID DRAINING FROM THE WOUND. WOUND AREA IS RED AND MCADAMS AREA IS SWOLLEN. WOUND IS APPROXIMATELY THE SIZE OF A QUARTER COIN. AFEBRILE. STATES HE IS TRYING TO MANAGE THE DRESSING CHANGES BUT HAVING DIFFICULTY KEEPING UP WITH THEM. RELEVANT PAST MEDICAL HISTORY Active problems - Computerized Problem List is the source for the followin. Venous stasis syndrome 2. Hypercholesterolemia 3. Subsequent non-ST segment elevation myocardial infarction 4. Deficiency of vitamin D3 5. Epilepsy 6. Panic attack 7. Gastroesophageal reflux disease EGD/[place] 2015--Dr Rangel 8. Benign essential hypertension 9. 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 Active and Recently Outpatient Medications (excluding Supplies): Active Outpatient Medications Status 1) ATORVASTATIN CALCIUM 40MG TAB TAKE ONE TABLET BY HOLD MOUTH ONCE DAILY FOR HIGH CHOLESTEROL DO NOT SPLIT Active Non-VA Medications Status 1) Non-VA CHOLECALCIF 25MCG (D3-1,000UNIT) TAB 1000UNIT ACTIVE BY MOUTH ONCE DAILY 2) Non-VA CYANOCOBALAMIN 500MCG TAB 500MCG BY MOUTH ONCE ACTIVE DAILY 3) Non-VA FUROSEMIDE 20MG TAB 20MG BY MOUTH ONCE DAILY ACTIVE 4) Non-VA LORAZEPAM 1MG TAB 1MG BY MOUTH TWICE DAILY ACTIVE NEEDED 5) Non-VA METOPROLOL SUCCINATE 50MG SA TAB 50MG BY MOUTH ACTIVE ONCE DAILY 6) Non-VA MULTIVITAMIN CAP/TAB 1 TABLET BY MOUTH EVERY ACTIVE DAY 7) Non-VA PANTOPRAZOLE TAB,EC BY MOUTH EVERY MORNING 30 ACTIVE MINUTES BEFORE BREAKFAST 8) Non-VA PHENYTOIN NA (DILANTIN) 100MG SA CAP 100MG BY ACTIVE MOUTH THREE TIMES A DAY 9) Non-VA SAW PALMETTO CAP/TAB ONE TAB BY MOUTH THREE ACTIVE TIMES A DAY 10) Non-VA TAMSULOSIN HCL 0.4MG CAP 0.4MG BY MOUTH ONCE ACTIVE DAILY 11 Total Medications REVIEW OF SYMPTOMS POSITIVE FOR: edema NEGATIVE FOR: CONSTITUTION: no weight loss/gain, fatigue, fevers, night sweats HEENT: no vision problems, hearing loss,swallowing difficulties, sinus pain CV: no chest pain, palpitations, dyspnea on exertion, orthopnea RESP: no cough, shortness of breath, wheezing GI: no abdominal pain, N/V/D, constipation, blood in stool, normal appetite : no urinary frequency, nocturia, hematuria MUSC: no joint pain, joint swelling, muscle aches NEURO: no headaches, dizziness, memory loss, tremor, weakness PSYCH: no depression, anxiety, suicidal or homicidal thoughts SKIN: no rash, new skin lesions PHYSICAL EXAM Vitals: - - - - - - - B/P: 159/72 (03/11/2024 15:17) pulse: 66 (03/11/2024 14:49) resp: 16 (03/11/2024 14:49) temp: 98.3 F [36.8 C] (03/11/2024 14:49) Ht: 69 in [175.3 cm] (08/21/2023 14:18) Wgt: 222 lb [100.70 kg] (03/11/2024 14:49) BMI: BMI: 32.9 Exam: - - - - - - - no open sores on his lower legs- small irritation from removing tape that is directly on skin no blisters +bilat edema RECENT LABS due ASSESSMENT AND PLAN 1. chronic venous stasis- with edema (for 6 mo)- after hip fracture 6 mo he is walking much less. he has compression stockings, but hard to get them on. discussed NOT using tape or adhesives on his legs- as more likely to cause denuding/tearing of skin. keep elevated when sitting. is on furosemide 20 mg daily thouh cards. ok to double for a few days. 2. hip fx- left 6 mo ago - non surgical - walking less, mostly using wheelchair and walker. if not progressing well, may consider home based primary care evaulation. 3. HTN- elevated today FOLLOW UP f/u in 3 mo with labs VISIT TYPE:a MODERATE complexity visit where 30 - 45 minutes was spent in direct patient care, review of records and documentation. /kacey/ JUDAH VERNON D.O. PHYSICIAN Signed: 03/12/2024 15:52 JUDAH VERNON [place] [facility] [place] [facility]
--- OUTSIDE RECORDS SUMMARY | 2024-11-24 18:03 | XMS_ITS | Encounter Summary ---
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 Name Role Phone JUDAH VERNON Primary Care [...] Rdz's Name Patient's Relationship to Policy Rdz ANTHDIONTE BCBS OF [place] MEDICARE SUPPLEMEN EN[place] DO NOT USE Jan 01, 2006 [id number] [phone] WIDISHA BOO PATIENT ANTHEM BCBS OF [place] (BLUECARD) MEDICARE SUPPLEMEN [place] PSUED O MEDEX BRONZ E Jan 01, 2006 [id number] [phone] WIDISHA BOO PATIENT [place] MED[place] SUPP[place] MEDEX BRONZ E Jan 01, 2006 [id number] WID[place]HA BOO PATIENT [place] PSUED [place] MEDEX BRONZ E Jan 01, 2006 [id number] DISHA MASON PATIENT MEDICARE (WNR) MEDICARE (M) PART A Jul 04, 2000 PART A [id number] WIDISHA BOO PATIENT MEDICARE (WNR) MEDICARE (M) PART B Jul 04, 2000 PART B [id number] DISHA MASON PATIENT MEDICARE (WNR) MEDICARE (M) PART A Jul 04, 2000 PART A [id number] WIATERDISHA PATIENT MEDICARE (WNR) MEDICARE (M) PART B Jul 04, 2000 PART B [id number] WIATER,DISHA LAGUNA PATIENT MEDICARE (WNR) MEDICARE (M) PART B Jul 04, 2000 PART B [id number] WIDISHA BOO PATIENT MEDICARE (WNR) MEDICARE (M) PART A Jul 04, 2000 PART A [id number] [phone] DISHA MASON PATIENT Selected Encounter This section includes the information on record at [place] for the Encounter. Date/Time Encounter Type Encounter Description Reason Provider Source Feb 27, 2024 11:00 AM OFF/OP EST MARCH X REQ PHY/QHP PRIMARY CARE/MEDICINE ICD-10-CM E78.00 Pure hypercholesterole lyly, unspecified FURCOLO,JUDAH IHE Encounter Template Text not used by [place] Assessments - Encounter Diagnoses This section includes the primary and secondary diagnoses documented for the Encounter. Date/Time Primary/Secondary Diagnosis Diagnosis Name Provider Source Feb 27, 2024 02:59 PM PRIMARY Pure hypercholesterole lyly, unspecified [facility]COLO[facility] Plan of Treatment: Future Appointments (+ 6 months) and Future Tests (+/- 45 days) The Plan of Treatment section includes future care activities for the patient from all [place] treatmentfacilities. This section includes future appointments and future orders which are active, pending or scheduled. Future Appointments This section includes appointments that were scheduled to occur 6 months from the date of the Encounter, up to a maximum of 20 appointments. The data comes from all [place] treatment facilities. Appointment Date/Time Appointment Type Appointme nt Facility Name March 11, 2024 02:30 PM AMBULATORY - MEDIC[facility] March 15, 2024 08:[address] [facility] [place] [facility] Jun 16, 2024 03:00 PM AMBULATORY - MEDICINE [facility] [place] [facility] Jun 23, 2024 08:30 AM AMBULATORY - REHAB MEDICIN E [facility] [place] [facility] Jul 19, 2024 03:00 PM AMBULATORY - REHAB MEDICIN E [facility] [place] [facility] Aug 11, 2024 02:00 PM AMBULATORY - REHAB MEDICIN E [facility] [place] [facility] Vital Signs: All taken on the encounter date This section contains inpatient and outpatient Vital Signs collected on the date of the Encounter. Date/Time Temperature Pulse Blood Pressure Respiratory Rate SP02 Pain Height Weight Body Mass Index Source Feb 27, 2024 01:46 PM 98.2 70 121/61 95 1 [facility] [place] [facility] Social History: Smoking Status (Most current) and Tobacco Use (All prior to encounter date) This section includes the most current, and the historical, smoking and tobacco- related health factors from the [place] facility where the Encounter took place. Current Smoking Status This section includes the most current smoking, or tobacco-related health factor, from the [place] facility where the Encounter took place. Date/Time Current Smoking Status Comment Estephania ity Nov 20, 2023 02:00 PM VA-TOBACCO NEVER USED [place] [facility] [place] [facility] Tobacco Use History This section includes a history of the smoking, or tobacco-related health factors, that were collected on or before the date of the Encounter. The data comes from the [place] facility where the Encounter took place. Date/Time Smoking Status/Tobacco Use Comment F acility Dec 10, 2022 01:00 PM VA-TOBACCO NEVER USED [facility] [place] [facility] Nov 26, 2021 10:00 AM VA-TOBACCO NEVER USED [facility] [place] [facility] Jul 04, 2020 10:30 AM VA-TOBACCO NEVER USED [facility] [place] [facility] May 25, 2019 11:50 AM VA-TOBACCO NEVER USED [facility] [place] [facility] Jun 05, 2018 09:35 AM QUIT TOBACCO USE > 7 YEARS AGO [facility] [place] [facility] May 22, 2017 02:07 PM LIFETIME [facility]ACCO [facility]ER [place] [facility] Encounter Notes: All associated encounter notes This section contains the clinical notes associated to the Encounter. Date/Time Encounter Note(s) Provider Source Feb 27, 2024 01:34 PM PRIMARY CARE OUTPA TIENT NOTE: LOCAL TITLE: AMBULATORY/OUTPATIENT CARE NOTE STANDARD TITLE: PRIMARY CARE OUTPATIENT NOTE DATE OF NOTE: FEB 27, 2024@13:34 ENTRY DATE: FEB 27, 2024@13:34:04 AUTHOR: MIKAYLA SUAZO EXP COSIGNER: URGENCY: STATUS: COMPLETED came to clinic today for venous stasis ulcers to his left cooper area. He states the [facility] stopped coming, (he was using his medicare, which would men he had to be homebound). The [place] does not have this requirment, so i placed a prison consult for wound care. Povided education on elevation of lower extremities and use of compression stockings, (which he has at home but has not been using because his cant get them on). Home care nurse can assist with this. Advised him it may be a week or so before someone comes out to do his dressing, and in the mean time he can come here to have that done. The wounds are open, however, there are no signs of infection. the are draing clear fluid, he is afebrile and they are not painful. Please sign consult if agree. thank you. /kacey/ Mikayla Suazo RN, BSN Primary Care Signed: 02/27/2024 13:44 Receipt Acknowledged By: 02/27/2024 14:59 /es/ JUDAH VERNON D.O. PHYSICIAN 02/27/2024 14:11 /kacey/ RORY JOYCE RN REGISTERED NURSE MIKAYLA SUAZO [facility]
--- OUTSIDE RECORDS SUMMARY | 2024-11-24 18:03 | XMS_ITS ---
Author Name [facility] [place] [facility] [place] [facility] [place] Address [address] [place] [id number] Care Team Providers Care Experimental Box Tester Name Role Phone JUDAH VERNNO Primary Care Provider Unavailabl e Insurance Providers: All historical and current Section [...] [place] DO NOT USE Jan 01, 2006 [id number] WIDISHA BOO PATIENT ANTHEM BCBS OF [place] (BLUECARD) MEDICARE SUPPLEMEN [place] PSUED O MEDEX BRONZ E Jan 01, 2006 [id number] WIDISHA BOO PATIENT BCBS DE MEDICARE SUPPLEMEN [place] MEDEX BRONZ E Jan 01, 2006 [id number] DISHA MASON PATIENT BCBS [place] MEDICARE SUPPLEMEN [place] PSUED O MEDEX BRONZ E Jan 01, 2006 [id number] [phone] DISHA MASON PATIENT MEDICARE (WNR) MEDICARE (M) PART A Jul 04, 2000 PART A [id number] DISHA MASON PATIENT MEDICARE (WNR) MEDICARE (M) PART B Jul 04, 2000 PART B [id number] DISHA MASON PATIENT MEDICARE (WNR) MEDICARE (M) PART A Jul 04, 2000 PART A [id number] WIDISHA BOO PATIENT MEDICARE (WNR) MEDICARE (M) PART B Jul 04, 2000 PART B [id number] [phone] WIDISHA BOO PATIENT MEDICARE (WNR) MEDICARE (M) PART A Jul 04, 2000 PART A [id number] [phone] DISHA MASON PATIENT MEDICARE (WNR) MEDICARE (M) PART B Jul 04, 2000 PART B [id number] DISHA MASON PATIENT Selected Encounter This section includes the information on record at [place] for the Encounter. Date/Time Encounter Type Encounter Description Reason Provider Source Jun 23, 2024 08:30 AM HEARING AID FITTING/CHECKIN G AUDIOLOGY ICD-10-CM Z46.1 Encounter for fitting and adjustment of hearing aid CHRISTIANO MONTERO [place] Encounter Template Text not used by [place] Assessments - Encounter Diagnoses This section includes the primary and secondary diagnoses documented for the Encounter. Date/Time Primary/Secondary Diagnosis Diagnosis Name Provider Source Jun 23, 2024 09:05 AM PRIMARY Encounter for fitting and adjustment of hearing aid [facility] Jun 23, 2024 09:05 AM SECONDARY Sensorineural hearing loss, bilateral JOJO [facility]TERO [facility] [place] [facility] Plan of Treatment: Future Appointments (+ 6 months) and Future Tests (+/- 45 days) The Plan of Treatment section includes future care activities for the patient from all [place] treatmentfacilities. This section includes future appointments and future orders which are active, pending or scheduled. Future Appointments This section includes appointments that were scheduled to occur 6 months from the date of the Encounter, up to a maximum of 20 appointments. The data comes from all [place] treatment facilities. Appointment Date/Time Appointment Type Appointme nt Facility Name Jul 19, 2024 03:00 PM AMBULATORY - [facility] MED[facility] Aug 11, 2024 02:00 PM AMBULATORY - [facility] Oct 14[facility] 2024 03:00 PM AMBULATORY - MEDICINE [facility] Dec 21, 2024 02:00 PM AMBULATORY - MEDICINE [facility] Active, Pending, and Scheduled Orders This section includes a listing of several types of active, pending, and scheduled orders, including clinic medications orders, diagnostic test orders, procedure orders and consult orders; where the start date of the order is 45 days before the date of the Encounter or 45 days after the date of theEncounter. The data comes from all [place] treatment facilities. Test Date/Time Test Type Test Details Facility Name Jun 16, 2024 03:41 PM Consult Order [facility] Cons Cat Dog Or Other Pet Groomer's Choice [facility] Jun 17, 2024 12:00 AM Laboratory - Chemi stry Order BASIC METABOLIC PANEL (fasting) BLOOD (SST[facility]SERUM) [facility] Jun 17, 2024 12:00 AM Laboratory - Chemi stry Order TSH BLOOD (SST-SERUM) [facility] Jun 17, 2024 12:00 AM Laboratory - Chemi stry Order LIPID PANEL FASTING BLOOD (SST-SERUM) [facility] Jun 17, 2024 12:00 AM Laboratory - Chemi stry Order CBC BLOOD (LAV-BLOOD) [facility] Jun 17, 2024 12:00 AM Laboratory - Chemi stry Order LIVER FUNCTION BLOOD (SST-SERUM) [facility] Social History: Smoking Status (Most current) and Tobacco Use (All prior to encounter date) This section includes the most current, and the historical, smoking and tobacco- related health factors from the [place] facility where the Encounter took place. Current Smoking Status This section includes the most current smoking, or tobacco-related health factor, from the [place] facility where the Encounter took place. Date/Time Current Smoking Status Comment Facil ity Nov 20, 2023 02:00 PM VA-TOBACCO NEVER USED [facility] Tobacco Use History This section includes a history of the smoking, or tobacco-related health factors, that were collected on or before the date of the Encounter. The data comes from the [place] facility where the Encounter took place. Date/Time Smoking Status/Tobacco Use Comment F acility Dec 10, 2022 01:00 PM VA-TOBACCO NEVER USED [place] [facility] [place] [facility] Nov 26, 2021 10:00 AM VA-TOBACCO NEVER USED [place] [facility] [place] [facility] Jul 04, 2020 10:30 AM VA-TOBACCO NEVER USED [place] [facility] [place] [facility] May 25, 2019 11:50 AM VA-TOBACCO NEVER USED [place] [facility] [place] [facility] Jun 05, 2018 09:35 AM QUIT TOBACCO USE > 7 YEARS AGO [place] [facility] [place] [facility] May 22, 2017 02:07 PM [facility] Encounter Notes: All associated encounter notes This section contains the clinical notes associated to the Encounter. Date/Time Encounter Note(s) Provider Source Jun 23, 2024 07:26 AM AUDIOLOGY E & M NOTE: LOCAL TITLE: AUDIOLOGY CLINIC STANDARD TITLE: AUDIOLOGY E & M NOTE DATE OF NOTE: JUN 23, 2024@07:26 ENTRY DATE: JUN 23, 2024@07:26:05 AUTHOR: CHRISTIANO MONTERO COSIGNER: URGENCY: STATUS: COMPLETED Dx CODE: Z46.1-Encounter for Fitting/Adjusting Hearing Aid(s); H90.3- Sensorineural Hearing Loss, Bilateral APPOINTMENT TYPE: Hearing Aid Maintenance Check HISTORY/BACKGROUND: The patient was seen for a hearing aid maintenance check appointment, accompanied by his son. He was fit with a right Bernard [employer] Edge AI YINKA and left CROS on 07/26/21. He reports today both hearing aids stopped working. He has been wearing an old privately purchased [employer] hearing aid and states he hears better with this device. HEARING AID CHECK: The hearing aids were cleaned and checked. The right oracle sql developer was replaced and microphones were suctioned. Listening inspection revealed both devices were working well. Hearing aids were connected to [employer] and right global gain was increased two steps. Recommending return for an updated hearing test. [place] son was frustrated this was not scheduled for today. Offered the soonest available test and they agreed. Otoscopy revealed clear canals bilaterally. PLAN/RECOMMENDATION(S): 1. RTC for an updated hearing test on 07/19/24 at 3PM. * Patient Education Education provided on the following topics: Hearing aids Education provided to: P Response to Education: VU Dow Patient P Family F Significant Other SO Verbalizes Understanding VU Returns Demonstration RD Performs Independently PI Lacks Comprehension LC Refused Education RE Not Applicable NA * /kacey/ CHRISTIANO MONTERO STAFF MANAGER FILTER Signed: 06/23/2024 09:05 Receipt Acknowledged By: 06/23/2024 09:17 /kacey/ GRAHAM FONSECA SUPERVISORY WEATHERIZATION CREW LEADER CHRISTIANO MONTERO [facility]
--- OUTSIDE RECORDS SUMMARY | 2024-11-24 18:03 | XMS_ITS | Encounter Summary ---
Author Name [facility] [place] [place] Organization [facility] [place] Address [address] [place] [id number] Care Team Providers Care Architecture Internship Name Role Phone JUDAH VERNON Primary Care [...] ENID DO NOT USE Jan 01, 2006 [id number] [phone] DISHA MASON PATIENT ANTHEM BCBS OF CT (BLUECARD) MEDICARE SUPPLEMEN [place] PSUED O MEDEX BRONZ E Jan 01, 2006 [id number] WIDISHA BOO PATIENT [place]BS [place] MED[place] SUPPLEMEN [place] MEDEX BRONZ E Jan 01, 2006 [id number] [phone] DISHA MASON PATIENT [place] MED[place] SUPPLEMEN [place] PSUED O MEDEX BRONZ E Jan 01, 2006 [id number] DISHA MASON PATIENT MEDICARE (WNR) MEDICARE (M) PART A Jul 04, 2000 PART A [id number] [phone] DISHA MASON PATIENT MEDICARE (WNR) MEDICARE (M) PART B Jul 04, 2000 PART B [id number] WIDISHA BOO PATIENT MEDICARE (WNR) MEDICARE (M) PART A Jul 04, 2000 PART A [id number] WIATERDISHA PATIENT MEDICARE (WNR) MEDICARE (M) PART B Jul 04, 2000 PART B [id number] [phone] WIATERDISHA PATIENT MEDICARE (WNR) MEDICARE (M) PART A Jul 04, 2000 PART A [id number] [phone] WIATERDISHA PATIENT MEDICARE (WNR) MEDICARE (M) PART B Jul 04, 2000 PART B [id number] [phone] DISHA MASON PATIENT Selected Encounter This section includes the information on record at [place] for the Encounter. Date/Time Encounter Type Encounter Description Reason Provider Source Jun 16, 2024 03:00 PM OFFICE O/P EST LOW 20 MIN PRIMARY CARE/MEDICINE ICD-10-CM G40.909 Epilepsy, unsp, not intractable, without status epilepticus [facility] Encounter Template Text not used by [place] Assessments - Encounter Diagnoses This section includes the primary and secondary diagnoses documented for the Encounter. Date/Time Primary/Secondary Diagnosis Diagnosis Name Provider Source Jun 16, 2024 03:54 PM PRIMARY Epilepsy, unsp, not intractable, without status epilepticus FURCOLO,JUDAH [place] [facility] [place] [facility] Jun 16, 2024 03:54 PM SECONDARY Essential (primary) hypertension FURCOLO,JUDAH [place] [facility] [place] [facility] Jun 16, 2024 03:54 PM SECONDARY Other constipation FURCOLO,JUDAH [place] [facility] [place] [facility] Plan of Treatment: Future Appointments (+ 6 months) and Future Tests (+/- 45 days) The Plan of Treatment section includes future care activities for the patient from all [place] treatmentfacilities. This section includes future appointments and future orders which are active, pending or scheduled. Future Appointments This section includes appointments that were scheduled to occur 6 months from the date of the Encounter, up to a maximum of 20 appointments. The data comes from all [place] treatment facilities. Appointment Date/Time Appointment Type Appointme nt Facility Name Jun 23, 2024 08:30 AM AMBULATORY - REHAB MEDICIN E [facility] Jul 19, 2024 03:00 PM [facility] Aug 11, 2024 02:00 PM AMBULATORY - REHAB MEDICIN E [facility] Oct 14, 2024 03:00 PM AMBULATORY - MEDICINE [facility] Active, Pending, and Scheduled Orders This section includes a listing of several types of active, pending, and scheduled orders, including clinic medications orders, diagnostic test orders, procedure orders and consult orders; where the start date of the order is 45 days before the date of the Encounter or 45 days after the date of theEncounter. The data comes from all [facility]. Test Date/Time Test Type Test Details Facility Name Jun 16, 2024 03:41 PM Consult Order COMMUNITY CARE-NEUROLOGY Cons Cv Rn's Choice [facility] Jun 17, 2024 12:00 AM Laboratory - Chemi stry Order TSH BLOOD (SST-SERUM) [facility] Jun 17, 2024 12:00 AM Laboratory - Chemi stry Order BASIC METABOLIC PANEL (fasting) BLOOD (SST-SERUM) [facility] Jun 17, 2024 12:00 AM Laboratory - Chemi stry Order LIPID PANEL FASTING BLOOD (SST-SERUM) [facility] Jun 17, 2024 12:00 AM Laboratory - Chemi stry Order CBC BLOOD (LAV-BLOOD) [facility] Jun 17, 2024 12:00 AM Laboratory - Chemi stry Order LIVER FUNCTION BLOOD (SST-SERUM) [facility] Vital Signs: All taken on the encounter date This section contains inpatient and outpatient Vital Signs collected on the date of the Encounter. Date/Time Temperature Pulse Blood Pressure Respiratory Rate SP02 Pain Height Weight Body Mass Index Source Jun 16, 2024 02:54 PM 98.4 63 147/73 16 97 0 70 222 32 [facility] [place] [facility] Social History: Smoking Status (Most current) and Tobacco Use (All prior to encounter date) This section includes the most current, and the historical, smoking and tobacco- related health factors from the [place] facility where the Encounter took place. Current Smoking Status This section includes the most current smoking, or tobacco-related health factor, from the [place] facility where the Encounter took place. Date/Time Current Smoking Status Comment Estephania ity Nov 20, 2023 02:00 PM [place]-TOBACCO NEVER USED [place] [facility] Tobacco Use History This section includes a history of the smoking, or tobacco-related health factors, that were collected on or before the date of the Encounter. The data comes from the [place] facility where the Encounter took place. Date/Time Smoking Status/Tobacco Use Comment [facility] Dec 10, 2022 01:00 PM VA-TOBACCO NEVER USED [place] [facility] [place] [facility] Nov 26, 2021 10:00 AM VA-TOBACCO NEVER USED [facility] [place] [facility] Jul 04, 2020 10:30 AM VA-TOBACCO NEVER USED [facility] [place] [facility] May 25, 2019 11:50 AM VA-TOBACCO NEVER USED [facility] [place] [facility] Jun 05, 2018 09:35 AM QUIT TOBACCO USE > 7 YEARS AGO [place] [facility] [place] [facility] May 22, 2017 02:07 PM LIFETIME NON-TOBACCO USER [place] [facility] [place] [facility] Encounter Notes: All associated encounter notes This section contains the clinical notes associated to the Encounter. Date/Time Encounter Note(s) Provider Source Sep 07, 2024 02:06 PM ADMINISTRATIVE NOTE: LOCAL TITLE: FAX/MAIL RECEIVED STANDARD TITLE: ADMINISTRATIVE NOTE DATE OF NOTE: SEP 07, 2024@14:06 ENTRY DATE: SEP 07, 2024@14:06:31 AUTHOR: MAURY THURMAN EXP COSIGNER: URGENCY: STATUS: COMPLETED Document Received On: Sep Document Type: Office Visit Note Date of Service: Aug Facility and or Provider: [facility] Contact Information: PCP of Record: JUDAH VERNON Next visit with PCP: 10/14/2024 15:00 COM CARE-NEUROLOGY 12/21/2024 14:00 CWM/NO/PACT EIGHT Primary Care May keep copies of this document for up to 14 days and send the original for scanning. SHAWN MASON is a 89 year-old male established patient who is here for symptoms of enlarged prostate. 1. BPH, hx of TURP , retention 05/2019, with UT!, on Flomax now. 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 Mooney). no dysuria. pt would like to have check by cath (14 Fr straight cath wihtout difficult and removed) PVR 12 --prev, ok stream. no freq. occ hesitancy at night. no split stream or straining. difficulty voiding when in rehab after hip surgery. now more mobile. using walker. on Flomax. pt seen with son and son in law PVR 1 cystoscopy 07/2022 = mild bladder neck contracture but able to pass scope without difficulty. no significant prostatic regrowth, mild trabeculation. --prv, Here urgently on 03/2022 due to post-void dribbling and penile irritation x 1 day. Symptoms were worse with coffee. UA was negative and PVR low. He returns today for Uroflow/PVR testing today. He continues to have some perinea! irritation but denies dysuria, gross hematuria. no dysuria or gross hematuria. on Flomax. Uroflow/PVR 04/2022: VV = 135mL, Qmax = 4.3 mL/s, PVR 16ml. Patient took ~10 mins to void. --ok stream. occ mild freq--variable. not bothersome. no dysuria or gross hematuria. on Flomax. --Bactrim in 06/2019 for Ent UT! Pt had retention after C3-4 posterior cervical decompressive laminectomy 05/30/2019 @[facility]. Discharged w/ Mina. Increased Flomax to 0.8mg. No side effect. Successful TOV 07/2019. PROCEDURES:Bladder Scan Scanned Volume: 12 cc Plan: return 3 months-bladder scan Notes: voiding symptoms likely from constipation issue. advise pt to f/u with his GI/general surgery for mgmt. f/u 3 mth, PVR, clinicalcheck /kacey/ MAURY THURMAN LPN License Practical Nurse Signed: 09/07/2024 14:09 MAURY THURMAN [place] [facility] [place] [facility] Jun 16, 2024 03:18 PM PHYSICIAN NOTE: LOCAL TITLE: MD NOTE STANDARD TITLE: PHYSICIAN NOTE DATE OF NOTE: JUN 16, 2024@15:18 ENTRY DATE: JUN 16, 2024@15:18:18 AUTHOR: JUDAH VERNON COSIGNER: URGENCY: STATUS: COMPLETED WIATER,SHAWN TABOR is a 88 year old WHITE MALE who is being seen today in primary care for ER follow- up - constipation = CARE TEAM = Community Primary Care Provider: [place] Specialists: [place] Specialists: neurologist- was dr. bhatti- retiring- getting referral to dr. shawn swartz = HISTORY = PERIOD OF SERVICE - [place] [facility] CONNECTED % - NONE FOUND = HISTORY OF PRESENT ILLNESS recent ER visist x 2 for constipation: Patient is here with ongoing constipation, contacted his PCP today who said he should go to the emergency department. He states it has been at least a month that he has been dealing with this but also states he cannot member last time he had a really good bowel movement. He was seen in the ED 9 days ago and evaluated for the same complaints, had a CT scan as well as blood work and only finding was moderate stool with no rectal impaction on that providers digital rectal exam. Was given a saline enema and he reports that after this he did have a production of some stool but he has continued to feel like he can push stool out. He reports some soreness rectally, denies any bleeding. Denies abdominal pain to me but nurse reports that he did say he has some intermittent left sided abdominal discomfort. Patient also reports to me that around 10 years ago he was seen by Dr. Mooney (a general surgeon here) for issues down there and tells me he thinks she cut muscle or something. Tells me that he is using MiraLAX. Unless otherwise specified, I have reviewed and agree with the triage and nursing notes. Assessment and Plan: Patient was given a half bottle magnesium citrate and a lactulose enema. Has had a good sized bowel movement here. Reports that he feels bit better. 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 -additionally- his neurologist dr. bhatti is retiring, he wants him to go to dr. shawn swartz. h//o epilepsy, is on dilantin. no seizures in over 10 years = RELEVANT PAST MEDICAL HISTORY = Active problems - Computerized Problem List is the source for the followin. Venous stasis syndrome 2. Hypercholesterolemia 3. Subsequent non-ST segment elevation myocardial infarction 4. Deficiency of vitamin D3 5. Epilepsy 6. Panic attack 7. Gastroesophageal reflux disease EGD/[place] 2015--Dr Rangel 8. Benign essential hypertension 9. Benign prostatic hyperplasia 10. Bilateral sensory hearing loss = ALLERGIES = PENICILLIN = MEDICATIONS = Active and Recently Outpatient Medications (excluding Supplies): [...] MOUTH ONCE ACTIVE DAILY 11 Total Medications = REVIEW OF SYMPTOMS = POSITIVE FOR: constipation NEGATIVE FOR: CONSTITUTION: no weight loss/gain, fatigue, [...] thoughts SKIN: no rash, new skin lesions = PHYSICAL EXAM = Vitals: - - - - - - - B/P: 147/73 (06/16/2024 14:54) pulse: 63 (06/16/2024:) resp: 16 (06/16/2024) temp: 98.4 F [36.9 C] (06/16/2024 14:54) Ht: 70 in [177.8 cm] (06/16/202454) Wgt: 222 lb [100.70 kg] (06/16/2024 14:54) BMI: BMI: 31.9 Exam: - - - - - - - in a wheelchair morbid obesity soft abdomen, normal bowel sounds = RECENT LABS = CT abdomen/pelvis final results 1. Colonic diverticulosis without evidence of acute diverticulitis. Moderate stool in the colon. No evidence of obstruction. 2. Chronic incompletely healed right acetabular fracture with additional superior pubic ramus component. There are erosive changes of the superolateral femoral head and to a lesser extent the acetabulum with capsular distention/effusion. This may represent advanced secondary degenerative changes with mechanical remodeling though clinical correlation and/or further evaluation with MRI is recommended to exclude infection. 3. Relatively decompressed bladder with mild wall thickening and adjacent stranding. Recommend clinical/urinalysis correlation to exclude UTI. 4. 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 = ASSESSMENT AND PLAN = 1. constipation- son thinks it is because he is eating more dairy- cheese and ice cream. takes stool softeners and laxatives daily. states years ago- had a rectal stricture and Dr. Mooney did a small operation to loosen the muscle. has upcominga pt with her at the end of Jun. currently having soft BM daily 2. hip fx- left 6 mo ago - non surgical - walking less, mostly using wheelchair and walker. disucssed needs to stand/walk more to have it heal better 3. epilepsy- his neurologist Dr. Jeffrey butler- will refer to DR. Swartz. discussed as he has not had any seizure in >10-15 years and NO changes in dilantin dose, likely does not need ot see a neurologist- i can prescribe the dilantin- but he wants to see a neurologist = FOLLOW UP = f/u in 6 mo VISIT TYPE:a MODERATE complexity visit where 30 - 45 minutes was spent in direct patient care, review of records and documentation. /kacey/ JUDAH VERNON D.O. PHYSICIAN Signed: 06/16/2024 15:56 JUDAH VERNON [place] [facility] [place] [facility] Jun 16, 2024 02:59 PM PREVENTIVE MEDICINE NURSING NOTE: LOCAL TITLE: CLINICAL REMINDERS/NURSING STANDARD TITLE: PREVENTIVE MEDICINE NURSING NOTE DATE OF NOTE: JUN 16, 2024@14:59 ENTRY DATE: JUN 16, 2024@14:59:54 AUTHOR: LAURA EWING: URGENCY: STATUS: COMPLETED Falls & Incontinence Screen: Falls Screen: During the past 12 months, did the patient report any falls? 3. At least one fall with injury requiring treatment (in ED or clinic visit). Incontinence Screen: During the past 12 months, has the patient has any characteristics of incontinence (ability, voiding, leakage, etc.)? No incontinence. Sexual Orientation: The patient thinks of their sexual orientation as: Straight or Heterosexual Suicide Screen: C-SSRS Screening [place] Suicide Severity Rating Scale (C-SSRS) screener 1. Over the past month, have you wished you were or wished you could go to sleep and not wake up? No 2. Over the past month, have you had any actual thoughts of killing yourself? No 3. Over the past month, have you been thinking about how you might do this? Response not required due to responses to other questions. 4. Over the past month, have you had these thoughts and had some intention of acting on them? Response not required due to responses to other questions. 5. Over the past month, have you started to work out or worked out the details of how to kill yourself? Response not required due to responses to other questions. 6. If yes, at any time in the past month did you intend to carry out this plan? Response not required due to responses to other questions. 7. In your lifetime, have you ever done anything, started to do anything, or prepared to do anything to end your life (for example, collected pills, obtained a gun, gave away valuables, went to the roof but didn't jump)? No 8. If YES, was this within the past 3 months? Response not required due to responses to other questions. /kacey/ LAURA EWING LPN LPN Signed: 06/16/2024 15:04 LAURA EWING [place] [facility] [place] [facility] Jun 04, 2024 09:37 AM ADMINISTRATIVE NOTE: LOCAL TITLE: FAX/MAIL RECEIVED STANDARD TITLE: ADMINISTRATIVE NOTE DATE OF NOTE: JUN 04, 2024@09:37 ENTRY DATE: JUN 04, 2024@09:37:11 AUTHOR: MAURY THURMAN EXP COSIGNER: URGENCY: STATUS: COMPLETED Document Received On: Jun Document Type: Emergency Department Note Date of Service: Jun Facility and or Provider: [facility] Contact Information: PCP of Record: JUDAH VERNON Next visit with PCP: 06/16/2024 15:00 CWM/NO/PACT EIGHT Primary Care May keep copies of this document for up to 14 days and send the original for scanning. Chief Complaint Complaint Constipation Final diagnosis Chronic idiopathic constipation Discharge Instructions You were treated for your constipation here reported to have a good BM after a lactulose enema. Make sure that you do your best to stay very well-hydrated moving forward and continue your medications as prescribed. You should have a stool softener or gentle laxative once a day or at least every other day. Follow-up closely with your PCP to discuss your issue with constipation and unsatisfactory bowel movements. 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 If you experience any concerning changes or notice any worsening symptoms then please do not hesitate to call 911 or return to the emergency department right away for reevaluation. History of Present Illness The patient, Shawn Mason,is a 88 y.o. male who presents for evaluation of Constipation Patient is here with ongoing constipation, contacted his PCP today who said he should go to the emergency department. He states it has been at least a month that he has been dealing with this but also states he cannot member last time he had a really good bowel movement. He was seen in the ED 9 days ago and evaluated for the same complaints, had a CT scan as well as blood work and only finding was moderate stool with no rectal impaction on that providers digital rectal exam. Was given a saline enema and he reports that after this he did have a production of some stool but he has continued to feel like he can push stool out. He reports some soreness rectally, denies any bleeding. Denies abdominal pain to me but nurse reports that he did say he has some intermittent left sided abdominal discomfort. Patient also reports to me that around 10 years ago he was seen by Dr. Mooney (a general surgeon here) for issues down there and tells me he thinks she cut muscle or something. Tells me that he is using MiraLAX. Unless otherwise specified, I have reviewed and agree with the triage and nursing notes. Assessment and Plan: Patient was given a half bottle magnesium citrate and a lactulose enema. Has had a good sized bowel movement here. Reports that he feels bit better. 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 IS SCHEDULED FOR A FOLLOW UP WITH PCP FOR JUNE 16 /kacey/ MAURY THURMAN LPN License Practical Nurse Signed: 06/04/2024 09:41 Receipt Acknowledged By: 06/05/2024 06:47 /kacey/ KIRK MCALLISTER NP NURSE PRACTITIONER for [facility]Y [facility]
--- OUTSIDE RECORDS SUMMARY | 2024-11-24 18:03 | XMS_ITS | Encounter Summary ---
Author Name [facility] [facility] [place] Address [address] [place] [id number] Care Team Providers Care Security Guard Supervisor Name Role Phone JUDAH VERNON Primary Care [...] ENID DO NOT USE Jan 01, 2006 [id number] WIDISHA BOO PATIENT ANTHEM BCBS OF CT (BLUECARD) MEDICARE SUPPLEMEN EN[place] PSUED O MEDEX BRONZ E Jan 01, 2006 [id number] [place]HA B[place] MEDEX [place]ON[place] E Jan 01, 2006 [id number] [phone] WIDISHA BOO PAT[place] PSUED [place] MEDEX [place]ON[place] E Jan 01, 2006 [id number] DISHA MASON PATIENT MEDICARE (WNR) MEDICARE (M) PART A Jul 04, 2000 PART A [id number] WIDISHA BOO PATIENT MEDICARE (WNR) MEDICARE (M) PART B Jul 04, 2000 PART B [id number] [phone] DISHA MASON PATIENT MEDICARE (WNR) MEDICARE (M) PART A Jul 04, 2000 PART A [id number] WIATERDISHA PATIENT MEDICARE (WNR) MEDICARE (M) PART B Jul 04, 2000 PART B [id number] WIATER,DISHA LAGUNA PATIENT MEDICARE (WNR) MEDICARE (M) PART A Jul 04, 2000 PART A [id number] [phone] WIDISHA BOO PATIENT MEDICARE (WNR) MEDICARE (M) PART B Jul 04, 2000 PART B [id number] [phone] DISHA MASON PATIENT Selected Encounter This section includes the information on record at [place] for the Encounter. Date/Time Encounter Type Encounter Description Reason Provider Source Jan 30, 2024 11:30 AM OFF/OP EST MARCH X REQ PHY/QHP PRIMARY CARE/MEDICINE ICD-10-CM R60.9 Edema, unspecified CHILSON,TIMOTH Y E IHE Encounter Template Text not used by [place] Assessments - Encounter Diagnoses This section includes the primary and secondary diagnoses documented for the Encounter. Date/Time Primary/Secondary Diagnosis Diagnosis Name Provider Source Jan 30, 2024 02:03 PM PRIMARY Edema, unspecified CHILSON,TIMOTH Y E [facility] Plan of Treatment: Future Appointments (+ 6 months) and Future Tests (+/- 45 days) The Plan of Treatment section includes future care activities for the patient from all [place] treatmentfacilities. This section includes future appointments and future orders which are active, pending or scheduled. Future Appointments This section includes appointments that were scheduled to occur 6 months from the date of the Encounter, up to a maximum of 20 appointments. The data comes from all [place] treatment facilities. Appointment Date/Time Appointment Type Appointme nt Facility Name Feb 27, 2024 11:00 AM AMBULATORY - MEDICINE [facility] March 11, 2024 02:30 PM [facility] March 15, 2024 08:00 AM [facility] Jun 16, 2024 03:00 PM [facility]ULAT[facility] [place] Jun 23, 2024 08:30 AM AMBULATORY - REHAB MEDICIN E [facility] [place] Jul 19, 2024 03:00 PM AMBULATORY - REHAB MEDICIN E [facility] Social History: Smoking Status (Most current) and Tobacco Use (All prior to encounter date) This section includes the most current, and the historical, smoking and tobacco- related health factors from the [place] facility where the Encounter took place. Current Smoking Status This section includes the most current smoking, or tobacco-related health factor, from the [place] facility where the Encounter took place. Date/Time Current Smoking Status Comment Estephania vazquez Nov 20, 2023 02:00 PM VA-TOBACCO NEVER USED [place] [facility] Tobacco Use History This section includes a history of the smoking, or tobacco-related health factors, that were collected on or before the date of the Encounter. The data comes from the [place] facility where the Encounter took place. Date/Time Smoking Status/Tobacco Use Comment F acility Dec 10, 2022 01:00 PM VA-TOBACCO NEVER USED [facility] [place] [facility] Nov 26, 2021 10:00 AM VA-TOBACCO NEVER USED [facility] [place] [facility] Jul 04, 2020 10:30 AM VA-TOBACCO NEVER USED [facility] [place] May 25, 2019 11:50 AM VA-TOBACCO NEVER USED [facility] [place] [facility] Jun 05, 2018 09:35 AM QUIT TOBACCO USE > 7 YEARS AGO [facility] [place] [facility] May 22, 2017 02:07 PM LIFETIME NON-TOBACCO USER [facility] [place] [facility] Encounter Notes: All associated encounter notes This section contains the clinical notes associated to the Encounter. Date/Time Encounter Note(s) Provider Source Jan 30, 2024 11:53 AM PRIMARY CARE OUTPA TIENT NOTE: LOCAL TITLE: AMBULATORY/OUTPATIENT CARE NOTE STANDARD TITLE: PRIMARY CARE OUTPATIENT NOTE DATE OF NOTE: JAN 30, 2024@11:53 ENTRY DATE: JAN 30, 2024@11:53:47 AUTHOR: REI AUGUSTIN EXP COSIGNER: URGENCY: STATUS: COMPLETED F: Walk-in D: Vet presented as a walk-in requesting to be seen to be measured for compression stockings. Vet is requesting 3 pairs of Compression stockings Ankle- 10.5inches/34cm Calf- 16inches/40cm 3 pairs of white socks were ordered Advance Directive Screen MH AD: Patient does not have an Advance Directive completed and is requesting more information. The patient received education about Advance Directives and written notification of his/her rights. Influenza Immunization: The patient has received the seasonal influenza vaccine for the current season at another location. Documented: INFLUENZA, UNSPECIFIED FORMULATION Historical Date Administered: Aug 2023 Exact date unknown Outside Location: [facility] Information Source: FROM OTHER REGISTRY Comment: [facility] /kacey/ REI AUGUSTIN MSN Ed., BSN INFANT CAREGIVER NURSE Signed: 01/30/2024 14:03 Receipt Acknowledged By: 01/30/2024 16:03 /kacey/ JUDAH VERNON D.O. PHYSICIAN REI AUGUSTIN [facility]
--- OUTSIDE RECORDS SUMMARY | 2024-11-24 18:03 | XMS_ITS | Continuity of Care Document ---
Author Name [facility] Organization [facility] Care Team Providers Care Advertising Teacher Name Role Phone [facility] Unavailable Unavailable Problems Combined list of problems from Department of Defense and Veterans Affairs facilities. It does not include entries that were removed or entered in error. Problem Status Onset Date Problem Type Date of Resolution Comments Source Epilepsy Active 968 Condition [facility] Anxiety Active Condition Nov 19 Entered By: JUDAH VERNON Comment: BDZ dependence. unwilling to try SSRI or alternatives. reducing BDZ dose/freq [facility] Benign essential hypertension Active Condition [facility] Benign prostatic hyperplasia Active Condition [facility] Benzodiazepine dependence Active Condition Nov 19, 2024 Entered By: JUDAH VERNON Comment: had been on lorazepam 1 mg TID though neurology (for decades). new neurologist Dr. Arroyo not willing to prescribe. 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 [facility] Venous stasis syndrome Active Condition [facility] Diagnosis: ICD-10-CM Z46.1 Encounter for fitting and adjustment of hearing aid Active Diagnosis [facility] Diagnosis: ICD-10-CM H90.3 Sensorineural hearing loss, bilateral Active Diagnosis [facility] Diagnosis: ICD-10-CM G40.909 Epilepsy, unsp, not intractable, without status epilepticus Active Diagnosis [facility] Diagnosis: ICD-10-CM I87.8 Other specified disorders of veins Active Diagnosis [facility] Diagnosis: ICD-10-CM E78.00 Pure hypercholesterolemia, unspecified Active Diagnosis [facility] Diagnosis: ICD-10-CM R60.9 Edema, unspecified Active Diagnosis [facility] Diagnosis: ICD-10-CM I10 Essential (primary) hypertension Active Diagnosis [facility] Diagnosis: ICD-10-CM L03.115 Cellulitis of right lower limb Active Diagnosis [facility] [place] [facility] Diagnosis: ICD-10-CM Z11.59 Encounter for screening for other viral diseases Active Diagnosis [facility] Medications Combined list of outpatient medications from Department of Defense and [facility] facilities.Medications provided include 1) outpatient medications from the last 15 months, and 2) patient-reported medications. Medication Details Route Status Patient Instructions Prescription Expires Prescription Number Last Dispense Date Ordering Provider Order Date Order Qty Source ATORVASTATI N CA 40MG TAB TAKE ONE TABLET BY MOUTH ONCE DAILY FOR HIGH CHOLESTE ROL DO NOT SPLIT ORAL 11/20/2024 [id number] [facility] 2023 [facility] CHOLECALCIF ASHUTOSH 25MCG (1,000UNIT) TAB TAKE ONE TABLET BY MOUTH ONCE DAILY ORAL ACTIVE [facility] [place] [facility] CYANOCOBALA MIN 500MCG TAB TAKE ONE TABLET BY MOUTH ONCE DAILY ORAL ACTIVE [facility] [place] [facility] 2017 [facility] FUROSEMIDE 20MG TAB TAKE ONE TABLET BY MOUTH ONCE DAILY ORAL ACTIVE [facility] [place] [facility] 2023 [facility] HYDROCORTIS ONE ACETATE 25MG SUPP,RTL INSERT 1 SUPPOSIT ORY RECTALLY ONCE DAILY FOR HEMORRHO IDS RECTAL 12/11/2023 [id number] [facility] 2022 24 [facility] LORAZEPAM 0.5MG TAB TAKE ONE TABLET BY MOUTH AT BEDTIME NEEDED FOR ANXIETY ORAL ACTIVE 05/14/2025 [id number] FURCOLO,T ROB 2024 30 [facility] METOPROLOL SUCCINATE 50MG TAB,SA TAKE ONE TABLET BY MOUTH ONCE DAILY ORAL ACTIVE [facility] JAWED 2020 [facility] MULTIVITAMI NS CAP/TAB TAKE ONE TABLET BY MOUTH EVERY DAY ORAL ACTIVE [facility] JAWED 2016 [facility] PANTOPRAZOL E TAB,EC TAKE BY MOUTH EVERY MORNING 30 MINUTES BEFORE BREAKFAS T ORAL ACTIVE [facility] JAWED 2020 [facility] PHENAZOPYRI DINE HCL 100MG TAB TAKE ONE TABLET BY MOUTH THREE TIMES DAILY NEEDED FOR DIFFICUL T OR PAINFUL URINATIO N ORAL ACTIVE 11/06/2023 [id number] [facility] JAWED 2022 30 [facility] PHENAZOPYRI DINE HCL 100MG TAB TAKE ONE TABLET BY MOUTH THREE TIMES DAILY NEEDED FOR DIFFICUL T OR PAINFUL URINATIO N ORAL 11/12/2023 [id number] [facility] JAWED 2022 30 [facility] PHENYTOIN NA,EXTENDED 100MG CAP (DILANTIN) TAKE 1 CAPSULE BY MOUTH THREE TIMES A DAY ORAL ACTIVE [facility] JAWED 2016 [facility] SAW PALMETTO CAP/TAB TAKE ONE TAB BY MOUTH THREE TIMES A DAY ORAL ACTIVE [facility] JAWED 2016 [facility] TAMSULOSIN HCL 0.4MG CAP TAKE 1 CAPSULE BY MOUTH ONCE DAILY ORAL ACTIVE GENE TOBIN JAWED 2020 [facility] Allergies, Adverse Reactions, Alerts Combined list of allergies from Department of Defense and Veterans Affairs facilities. It does not include entries that were removed or entered in error. Substance Category Reaction Severity Reaction type Status Date Reported Comments Source PENICILLIN Propensity to adverse reactions to drug (finding) [facility] Immunizations Combined list of available immunizations from the Department of Defense and Veterans Affairs facilities. Immunization Series Date Given Administered By Site Reaction Lot Number CVX Code Drug Triage Registered Nurse Status Comments Source INFLUENZA, UNSPECIFIED FORMULATION 2022 88 complet ed [facility] INFLUENZA VACCINE, QUADRIVALENT, ADJUVANTED 2021 205 complet [facility] PNEUMOCOCCAL CONJUGATE PCV20, POLYSACCHARID E [id number] CONJUGATE, ADJUVANT, PF 2021 216 complet [facility] COVID-19 (MODERNA), MRNA, LNP-S, PF, 100 MCG OR 50 MCG DOSE 3 2020 207 complet ed MOD; [id number]; 2 [facility] INFLUENZA, UNSPECIFIED FORMULATION 2020 88 [facility] PNEUMOCOCCAL POLYSACCHARID E PPV23 2020 33 [facility] TDAP 2020 [facility] COVID-19 (MODERNA), MRNA, LNP-S, PF, 100 MCG/0.5 ML DOSE 2 2020 207 complet ed MOD; [id number]; 1 [facility] COVID-19 (MODERNA), MRNA, LNP-S, PF, 100 MCG/0.5 ML DOSE 1 2020 207 complet ed MOD; [id number]; 1 [facility] INFLUENZA, SEASONAL, INJECTABLE 2016 141 [facility] FLU,3 YRS (HISTORICAL) 2016 88 complet ed [facility] Results Combined list of recent chemistry, hematology and other laboratory results from Department of Defense and Veterans Affairs, ranging from 15 months to all on record, depending upon the facility. Order Name Results Value Reference Range Date Interpretation Specimen Comments Source URINALYS IS COLOR OF URINE Yellow 10/13 Specimen Type: URINE Comment: If Glucose = >500 and Ketones are positive, please alert the Physician. Ordering Provider: PAULINE TOBIN Report Released Date/Time: Oct 09, 2023 03:14 PM Reporting Lab: [facility] [place] [facility] [address] [facility] [address] Performing Lab: [facility] [place] [facility] [address] [facility] [address] [facility] URINALYS IS APPEARANCE OF URINE Clear 10/13 Specimen Type: URINE Comment: If Glucose = >500 and Ketones are positive, please alert the Physician. Ordering Provider: PAULINE TOBIN Report Released Date/Time: Oct 09, 2023 03:14 PM Reporting Lab: [facility] [place] [facility] [address] [facility] [address] Performing Lab: [facility] [place] [facility] [address] [facility] [address] [facility] [facility] URINALYS IS GLUCOSE [MASS/VOLU ME] IN URINE NEGATIVE mg/dL 10/13 Specimen Type: URINE Comment: If Glucose = >500 and Ketones are positive, please alert the Physician. Ordering Provider: PAULINE TOBIN Report Released Date/Time: Oct 09, 2023 03:14 PM Reporting Lab: [facility] [place] [facility] [address] [facility] [address] Performing Lab: [facility] [place] [facility] [address] [facility] [address] [facility] URINALYS IS KETONES [MASS/VOLU ME] IN URINE BY TEST STRIP NEGATIVE mg/dL 10/13 Specimen Type: URINE Comment: If Glucose = >500 and Ketones are positive, please alert the Physician. Ordering Provider: PAULINE TOBIN Report Released Date/Time: Oct 09, 2023 03:14 PM Reporting Lab: [facility] [address] [facility] [address] Performing Lab: [facility] [address] [facility] [address] [facility] URINALYS IS ERYTHROCYT ES [PRESENCE] IN URINE SEDIMENT BY LIGHT MICROSCOPY NEGATIVE mg/dL 10/13 Specimen Type: URINE Comment: If Glucose = >500 and Ketones are positive, please alert the Physician. Ordering Provider: PAULINE TOBIN Report Released Date/Time: Oct 09, 2023 03:14 PM Reporting Lab: [facility] [address] [facility] [address] Performing Lab: [facility] [place] [facility] [address] [facility] [address] [facility] URINALYS IS PROTEIN [MASS/VOLU ME] IN URINE BY TEST STRIP NEGATIVE mg/dL 10/13 Specimen Type: URINE Comment: If Glucose = >500 and Ketones are positive, please alert the Physician. Ordering Provider: PAULINE TOBIN Report Released Date/Time: Oct 09, 2023 03:14 PM Reporting Lab: [facility] [address] [facility] [address] Performing Lab: [facility] [address] [facility] [address] [facility] URINALYS IS NITRITE [PRESENCE] IN URINE NEGATIVE mg/dL 10/13 Specimen Type: URINE Comment: If Glucose = >500 and Ketones are positive, please alert the Physician. Ordering Provider: PAULINE TOBIN Report Released Date/Time: Oct 09, 2023 03:14 PM Reporting Lab: [facility] [place] [facility] [address] [facility] [address] Performing Lab: [facility] [place] [facility] [address] [facility] [address] [facility] URINALYS IS BILIRUBIN. TOTAL [PRESENCE] IN URINE NEGATIVE mg/dL 10/13 Specimen Type: URINE Comment: If Glucose = >500 and Ketones are positive, please alert the Physician. Ordering Provider: PAULINE TOBIN Report Released Date/Time: Oct 09, 2023 03:14 PM Reporting Lab: [facility] [place] [facility] [address] [facility] [address] Performing Lab: [facility] [place] [facility] [address] [facility] [address] [facility] URINALYS IS SPECIFIC GRAVITY OF URINE BY REFRACTOME TRY 1.018 1.016 - 1.022 10/13 Specimen Type: URINE Comment: If Glucose = >500 and Ketones are positive, please alert the Physician. Ordering Provider: PAULINE TOBIN Report Released Date/Time: Oct 09, 2023 03:14 PM Reporting Lab: [facility] [place] [facility] [address] [facility] [address] Performing Lab: [facility] [place] [facility] [address] [facility] [address] [facility] [place] [facility] URINALYS IS PH OF URINE BY TEST STRIP 6.0 5.0 - 9.0 10/13 Specimen Type: URINE Comment: If Glucose = >500 and Ketones are positive, please alert the Physician. Ordering Provider: PAULINE TOBIN Report Released Date/Time: Oct 09, 2023 03:14 PM Reporting Lab: [facility] [place] [facility] [address] [facility] [address] Performing Lab: [facility] [place] [facility] [address] [facility] [address] [place] [facility] [place] [facility] URINALYS IS UROBILINOG EN [MASS/VOLU ME] IN URINE BY TEST STRIP <2.0mg/d L <2.0 - 2.0 10/13 Specimen Type: URINE Comment: If Glucose = >500 and Ketones are positive, please alert the Physician. Ordering Provider: PAULINE TOBIN Report Released Date/Time: Oct 09, 2023 03:14 PM Reporting Lab: [facility] [place] [facility] [address] [facility] [address] Performing Lab: [facility] [place] [facility] [address] [facility] [address] [facility] [place] [facility] URINALYS IS LEUKOCYTE ESTERASE [PRESENCE] IN URINE BY TEST STRIP NEGATIVE 10/13 Specimen Type: URINE Comment: If Glucose = >500 and Ketones are positive, please alert the Physician. Ordering Provider: PAULINE TOBIN Report Released Date/Time: Oct 09, 2023 03:14 PM Reporting Lab: [facility] [place] [address] [address] Performing Lab: [facility] [place] [facility] [address] [facility] [address] [facility] LIVER FUNCTION PROTEIN [MASS/VOLU ME] IN SERUM OR PLASMA 6.7 g/dL 6.0 - 8.3 10/13 Specimen Type: SERUM No comment entered. Ordering Provider: PAULINE TOBIN Report Released Date/Time: Sep 26, 2023 03:19 PM Reporting Lab: [facility] [place] [facility] [address] [facility] [address] Performing Lab: [facility] [place] [facility] [address] [facility] [address] [place] [facility] [place] [facility] LIVER FUNCTION ALBUMIN [MASS/VOLU ME] IN SERUM OR PLASMA 3.4 g/dL 3.5 - 5.0 10/13 L Specimen Type: SERUM No comment entered. Ordering Provider: PAULINE TOBIN Report Released Date/Time: Sep 26, 2023 03:19 PM Reporting Lab: [facility] [place] [facility] [address] [facility] [address] Performing Lab: [facility] [address] [facility] [address] [facility] LIVER FUNCTION ALKALINE PHOSPHATAS E [ENZYMATIC ACTIVITY/V OLUME] IN SERUM OR PLASMA 156 U/L 40 - 150 10/13 H Specimen Type: SERUM No comment entered. Ordering Provider: PAULINE TOBIN Report Released Date/Time: Sep 26, 2023 03:19 PM Reporting Lab: [facility] [address] [facility] [address] Performing Lab: [facility] [address] [facility] [address] [facility] [place] LIVER FUNCTION ASPARTATE AMINOTRANS FERASE [ENZYMATIC ACTIVITY/V OLUME] IN SERUM OR PLASMA 17 U/L 5 - 34 10/13 Specimen Type: SERUM No comment entered. Ordering Provider: PAULINE TOBIN Report Released Date/Time: Sep 26, 2023 03:19 PM Reporting Lab: [facility] [address] [facility] [address] Performing Lab: [facility] [address] [facility] [address] [facility] [place] LIVER FUNCTION ALANINE AMINOTRANS FERASE [ENZYMATIC ACTIVITY/V OLUME] IN SERUM OR PLASMA 18 U/L 10/13 Specimen Type: SERUM No comment entered. Ordering Provider: PAULINE TOBIN Report Released Date/Time: Sep 26, 2023 03:19 PM Reporting Lab: [facility] [address] [facility] [address] Performing Lab: [facility] [address] [facility] [address] [facility] LIVER FUNCTION BILIRUBIN. TOTAL [MASS/VOLU ME] IN SERUM OR PLASMA 0.2 mg/dL 0.2 - 1.2 10/13 Specimen Type: SERUM No comment entered. Ordering Provider: PAULINE TOBIN Report Released Date/Time: Sep 26, 2023 03:19 PM Reporting Lab: [facility] [place] [facility] [address] [facility] [address] Performing Lab: [facility] [place] [facility] [address] [facility] [address] [facility] [place] BASIC METABOLI C PANEL (fasting ) UREA NITROGEN [MASS/VOLU ME] IN SERUM OR PLASMA 20 mg/dL 7 - 25 10/13 Specimen Type: SERUM No comment entered. Ordering Provider: PAULINE TOBIN Report Released Date/Time: Sep 26, 2023 03:19 PM Reporting Lab: [facility] [place] [facility] [address] [facility] [address] Performing Lab: [place] [facility] [place] [facility] [address] [facility] [address] [place] [facility] [place] [facility] BASIC METABOLI C PANEL (fasting ) GLUCOSE [MASS/VOLU ME] IN SERUM OR PLASMA 92 mg/dL 65 - 100 10/13 Specimen Type: SERUM No comment entered. Ordering Provider: PAULINE TOBIN Report Released Date/Time: Sep 26, 2023 03:19 PM Reporting Lab: [facility] [place] [facility] [address] [facility] [address] Performing Lab: [facility] [place] [facility] [address] [facility] [address] [facility] [place] [facility] BASIC METABOLI C PANEL (fasting ) SODIUM [MOLES/VOL UME] IN SERUM OR PLASMA 137 mmol/L 135 - 145 10/13 Specimen Type: SERUM No comment entered. Ordering Provider: PAULINE TOBIN Report Released Date/Time: Sep 26, 2023 03:19 PM Reporting Lab: [facility] [place] [facility] [address] [facility] [address] Performing Lab: [facility] [place] [facility] [address] [facility] [address] [facility] [place] [facility] BASIC METABOLI C PANEL (fasting ) POTASSIUM [MOLES/VOL UME] IN SERUM OR PLASMA 5.0 mmol/L 3.5 - 5.0 10/13 Specimen Type: SERUM No comment entered. Ordering Provider: PAULINE TOBIN Report Released Date/Time: Sep 26, 2023 03:19 PM Reporting Lab: [facility] [place] [facility] [address] [facility] [address] Performing Lab: [facility] [place] [facility] [address] [facility] [address] [facility] [place] [facility] BASIC METABOLI C PANEL (fasting ) CHLORIDE [MOLES/VOL UME] IN SERUM OR PLASMA 104 mmol/L 100 - 110 10/13 Specimen Type: SERUM No comment entered. Ordering Provider: PAULINE TOBIN Report Released Date/Time: Sep 26, 2023 03:19 PM Reporting Lab: [facility] [place] [facility] [address] [facility] [address] Performing Lab: [place] [facility] [place] [address] [address] [place] [facility] [place] [facility] BASIC METABOLI C PANEL (fasting ) CARBON DIOXIDE, TOTAL [MOLES/VOL UME] IN SERUM OR PLASMA 25 meq/L 20 - 30 10/13 Specimen Type: SERUM No comment entered. Ordering Provider: PAULINE TOBIN Report Released Date/Time: Sep 26, 2023 03:19 PM Reporting Lab: [facility] [place] [address] [address] Performing Lab: [facility] [place] [facility] [address] [facility] [address] [facility] [place] [facility] BASIC METABOLI C PANEL (fasting ) CREATININE [MASS/VOLU ME] IN SERUM OR PLASMA 0.79 mg/dL 0.50 - 1.40 10/13 Specimen Type: SERUM No comment entered. Ordering Provider: PAULINE TOBIN Report Released Date/Time: Sep 26, 2023 03:19 PM Reporting Lab: [facility] [place] [facility] [address] [facility] [address] Performing Lab: [facility] [place] [facility] [address] [facility] [address] [place] [facility] [place] [facility] BASIC METABOLI C PANEL (fasting ) GLOMERULAR FILTRATION RATE/1.73 SQ M.PREDICTE D [VOLUME RATE/AREA] IN SERUM, PLASMA OR BLOOD BY CREATININE -BASED FORMULA (CKD-EPI 2020) 85 mL/min 60 10/13 Specimen Type: SERUM No comment entered. Ordering Provider: PAULINE OTBIN Report Released Date/Time: Sep 26, 2023 03:19 PM Reporting Lab: [facility] [place] [facility] [address] [facility] [address] Performing Lab: [facility] [place] [facility] [address] [facility] [address] [place] [facility] [place] [facility] CBC AND DIFF (AUTO) LEUKOCYTES [#/VOLUME] IN BLOOD BY AUTOMATED COUNT 6.40 10*3/uL 4.50 - 11.00 10/13 Specimen Type: BLOOD No comment entered. Ordering Provider: PAULINE TOBIN Report Released Date/Time: Sep 26, 2023 03:19 PM Reporting Lab: [facility] [place] [facility] [address] [facility] [address] Performing Lab: [facility] [place] [facility] [address] [facility] [address] [facility] [place] [facility] CBC AND DIFF (AUTO) ERYTHROCYT ES [#/VOLUME] IN BLOOD BY AUTOMATED COUNT 3.44 10*6/uL 4.23 - 5.66 10/13 L Specimen Type: BLOOD No comment entered. Ordering Provider: PAULINE TOBIN Report Released Date/Time: Sep 26, 2023 03:19 PM Reporting Lab: [facility] [place] [facility] [address] [facility] [id number] Performing Lab: [place] [facility] [place] [address] [address] [facility] [place] [facility] CBC AND DIFF (AUTO) HEMOGLOBIN [MASS/VOLU ME] IN BLOOD 11.1 g/dL 12.8 - 17 10/13 L Specimen Type: BLOOD No comment entered. Ordering Provider: PAULINE TOBIN Report Released Date/Time: Sep 26, 2023 03:19 PM Reporting Lab: [facility] [place] [facility] [address] [facility] [id number] Performing Lab: [facility] [place] [facility] [address] [facility] [phone] [facility] [place] [facility] CBC AND DIFF (AUTO) HEMATOCRIT [VOLUME FRACTION] OF BLOOD BY AUTOMATED COUNT 34.7 39.2 - 50.4 10/13 L Specimen Type: BLOOD No comment entered. Ordering Provider: PAULINE TOBINOrnim Medical Report Released Date/Time: Sep 26, 2023 03:19 PM Reporting Lab: [facility] [place] [facility] [address] [facility] [address] Performing Lab: [facility] [address] [facility] [address] [facility] CBC AND DIFF (AUTO) MCV [ENTITIC VOLUME] BY AUTOMATED COUNT 100.9 fL 82 - 99 10/13 H Specimen Type: BLOOD No comment entered. Ordering Provider: PAULINE TOBIN Report Released Date/Time: Sep 26, 2023 03:19 PM Reporting Lab: [facility] [address] [facility] [address] Performing Lab: [facility] [address] [facility] [address] [facility] CBC AND DIFF (AUTO) MCHC [MASS/VOLU ME] BY AUTOMATED COUNT 32.0 g/dL 30.8 - 35.1 10/13 Specimen Type: BLOOD No comment entered. Ordering Provider: PAULINE TOBIN StampedKAREN Report Released Date/Time: Sep 26, 2023 03:19 PM Reporting Lab: [facility] [address] [facility] [address] Performing Lab: [facility] [address] [facility] [address] [facility] CBC AND DIFF (AUTO) PLATELETS [#/VOLUME] IN BLOOD BY AUTOMATED COUNT 235 10*3/uL 140 - 360 10/13 Specimen Type: BLOOD No comment entered. Ordering Provider: PAULINE TOBIN Report Released Date/Time: Sep 26, 2023 03:19 PM Reporting Lab: [facility] [address] [facility] [address] Performing Lab: [facility] [address] [facility] [address] [facility] CBC AND DIFF (AUTO) ERYTHROCYT E DISTRIBUTI ON WIDTH [RATIO] BY AUTOMATED COUNT 13.8 12.0 - 16.0 10/13 Specimen Type: BLOOD No comment entered. Ordering Provider: PAULINE TOBIN Report Released Date/Time: Sep 26, 2023 03:19 PM Reporting Lab: [facility] [address] [facility] [address] Performing Lab: [facility] [facility] [address] [facility] [address] [facility] CBC AND DIFF (AUTO) MONOCYTES [#/VOLUME] IN BLOOD BY AUTOMATED COUNT 0.77 10*3/uL 0.30 - 1.10 10/13 Specimen Type: BLOOD No comment entered. Ordering Provider: PAULINE TOBIN Report Released Date/Time: Sep 26, 2023 03:19 PM Reporting Lab: [facility] [address] [facility] [address] Performing Lab: [facility] [address] [facility] [address] [facility] CBC AND DIFF (AUTO) MCH [ENTITIC MASS] BY AUTOMATED COUNT 32.3 pg 26.2 - 32.6 10/13 Specimen Type: BLOOD No comment entered. Ordering Provider: PAULINE TOBIN Report Released Date/Time: Sep 26, 2023 03:19 PM Reporting Lab: [facility] [facility] [address] [facility] [address] Performing Lab: [facility] [address] [address] [facility] CBC AND DIFF (AUTO) NEUTROPHIL S/100 LEUKOCYTES IN BLOOD BY AUTOMATED COUNT 53.1 43.7 - 75.8 10/13 Specimen Type: BLOOD No comment entered. Ordering Provider: PAULINE TOBIN Report Released Date/Time: Sep 26, 2023 03:19 PM Reporting Lab: [facility] [address] [facility] [address] Performing Lab: [facility] [address] [facility] [address] [facility] CBC AND DIFF (AUTO) LYMPHOCYTE S/100 LEUKOCYTES IN BLOOD BY AUTOMATED COUNT 28.4 14.0 - 42.3 10/13 Specimen Type: BLOOD No comment entered. Ordering Provider: PAULINE TBOIN Report Released Date/Time: Sep 26, 2023 03:19 PM Reporting Lab: [facility] [address] [place] [address] Performing Lab: [facility] [address] [place] [address] [facility] CBC AND DIFF (AUTO) MONOCYTES/ 100 LEUKOCYTES IN BLOOD BY AUTOMATED COUNT 12.0 5.1 - 13.7 10/13 Specimen Type: BLOOD No comment entered. Ordering Provider: PAULINE TOBIN Report Released Date/Time: Sep 26, 2023 03:19 PM Reporting Lab: [facility] [address] [facility] [address] Performing Lab: [facility] [address] [place] [address] [facility] CBC AND DIFF (AUTO) EOSINOPHIL S/100 LEUKOCYTES IN BLOOD BY AUTOMATED COUNT 5.6 0.4 - 6.8 10/13 Specimen Type: BLOOD No comment entered. Ordering Provider: PAULINE TOBIN Report Released Date/Time: Sep 26, 2023 03:19 PM Reporting Lab: [facility] [address] [facility] [address] Performing Lab: [facility] [facility] [address] [facility] [address] [facility] CBC AND DIFF (AUTO) BASOPHILS/ 100 LEUKOCYTES IN BLOOD BY AUTOMATED COUNT 0.6 0.1 - 2.0 10/13 Specimen Type: BLOOD No comment entered. Ordering Provider: PAULINE TOBIN Report Released Date/Time: Sep 26, 2023 03:19 PM Reporting Lab: [facility] [address] [facility] [address] Performing Lab: [facility] [facility] [address] [facility] [address] [facility] CBC AND DIFF (AUTO) NEUTROPHIL S [#/VOLUME] IN BLOOD BY AUTOMATED COUNT 3.39 10*3/uL 2.20 - 7.60 10/13 Specimen Type: BLOOD No comment entered. Ordering Provider: PAULINE TOBIN Report Released Date/Time: Sep 26, 2023 03:19 PM Reporting Lab: [facility] [facility] [address] [facility] [address] Performing Lab: [facility] [facility] [address] [facility] [address] [facility] CBC AND DIFF (AUTO) LYMPHOCYTE S [#/VOLUME] IN BLOOD BY AUTOMATED COUNT 1.82 10*3/uL 1.00 - 3.20 10/13 Specimen Type: BLOOD No comment entered. Ordering Provider: PAULINE TOBIN Report Released Date/Time: Sep 26, 2023 03:19 PM Reporting Lab: [facility] [place] [facility] [address] [facility] [address] Performing Lab: [facility] [place] [facility] [address] [facility] [address] [facility] CBC AND DIFF (AUTO) EOSINOPHIL S [#/VOLUME] IN BLOOD BY AUTOMATED COUNT 0.36 10*3/uL 0.03 - 0.44 10/13 Specimen Type: BLOOD No comment entered. Ordering Provider: PAULINE TOBIN Report Released Date/Time: Sep 26, 2023 03:19 PM Reporting Lab: [facility] [address] [facility] [address] Performing Lab: [facility] [address] [facility] [address] [facility] CBC AND DIFF (AUTO) BASOPHILS [#/VOLUME] IN BLOOD BY AUTOMATED COUNT 0.04 10*3/uL 0.01 - 0.13 10/13 Specimen Type: BLOOD No comment entered. Ordering Provider: PAULINE TOBIN Report Released Date/Time: Sep 26, 2023 03:19 PM Reporting Lab: [facility] [address] [facility] [address] Performing Lab: [facility] [place] [facility] [address] [facility] [address] [facility] CBC AND DIFF (AUTO) IMMATURE GRANULOCYT ES/100 LEUKOCYTES IN BLOOD BY AUTOMATED COUNT 0.3 0.0 - 0.7 10/13 Specimen Type: BLOOD No comment entered. Ordering Provider: PAULINE TOBIN Report Released Date/Time: Sep 26, 2023 03:19 PM Reporting Lab: [facility] [place] [facility] [address] [facility] [address] Performing Lab: [facility] [address] [facility] [address] [facility] CBC AND DIFF (AUTO) IMMATURE GRANULOCYT ES [#/VOLUME] IN BLOOD 0.02 10*3/uL 0.00 - 0.06 10/13 Specimen Type: BLOOD No comment entered. Ordering Provider: PAULINE TOBIN Report Released Date/Time: Sep 26, 2023 03:19 PM Reporting Lab: [facility] [address] [facility] [address] Performing Lab: [facility] [address] [facility] [address] [facility] LIPID PANEL FASTING CHOLESTERO L [MASS/VOLU ME] IN SERUM OR PLASMA 140 mg/dL 10/13 Specimen Type: SERUM No comment entered. Ordering Provider: PAULINE TOBIN Report Released Date/Time: Sep 26, 2023 03:19 PM Reporting Lab: [facility] [place] [facility] [address] [facility] [address] Performing Lab: [facility] [place] [facility] [address] [facility] [address] [facility] LIPID PANEL FASTING TRIGLYCERI DE [MASS/VOLU ME] IN SERUM OR PLASMA 101 mg/dL 0 - 150 10/13 Specimen Type: SERUM No comment entered. Ordering Provider: PAULINE TOBIN Report Released Date/Time: Sep 26, 2023 03:19 PM Reporting Lab: [facility] [place] [address] [address] Performing Lab: [facility] [place] [address] [address] [facility] LIPID PANEL FASTING CHOLESTERO L IN LDL [MASS/VOLU ME] IN SERUM OR PLASMA BY JEAN-PAUL Mckeon 69 mg/dL 0 - 129 10/13 Specimen Type: SERUM No comment entered. Ordering Provider: PAULINE TOBIN Report Released Date/Time: Sep 26, 2023 03:19 PM Reporting Lab: [facility] [place] [facility] [address] [facility] [address] Performing Lab: [facility] [place] [address] [address] [place] [facility] [facility] LIPID PANEL FASTING CHOLESTERO L.TOTAL/CH OLESTEROL IN HDL [MASS RATIO] IN SERUM OR PLASMA 2.7 10/13 Specimen Type: SERUM No comment entered. Ordering Provider: PAULINE TOBIN Report Released Date/Time: Sep 26, 2023 03:19 PM Reporting Lab: [facility] [address] [address] Performing Lab: [facility] [address] [facility] [address] [facility] LIPID PANEL FASTING CHOLESTERO L IN HDL [MASS/VOLU ME] IN SERUM OR PLASMA 51 mg/dL 40 - 60 10/13 Specimen Type: SERUM No comment entered. Ordering Provider: PAULINE TOBIN Report Released Date/Time: Sep 26, 2023 03:19 PM Reporting Lab: [facility]ITALTRN [facility] [address] [facility] [address] Performing Lab: [facility]ERR[facility] HOSPITALTRN [facility] [address] [facility] [address] [facility]ERRFLORALA [facility]ITALN [facility]ITALUSE [facility] COVID-19 FLU/RSV DIAGNOST IC PANEL SARS-COV-2 (COVID-19) RNA [PRESENCE] IN RESPIRATOR Y SPECIMEN BY NATY WITH PROBE DETECTION NEGATIVE 07/15 Specimen Type: NASOPHARYNX Comment: This test is authorized for emergency use only. False negative results may occur if virus is present at levels below the analytical limit of detection.N egative results do not preclude SARS-CoV-2, influenza or RSV infection and should not be used as the sole basis for treatment or other patient management decisions.C epheid FLUVID: HCPs: https://www .fda.gov/ok kalani/254308/ download. Patients: https://www .fda.gov/ok kalani/401407/ download Ordering Provider: PAULINE TOBIN Report Released Date/Time: Jul 15, 2023 02:46 PM Reporting Lab: [facility]ERRFLORALA MEMORIAL HOSPITALN [facility] [address] [facility] [address] Performing Lab: [facility]ENTERRFLORALA MEMORIAL HOSPITALN [facility] [address] [facility] [address] [facility]ERRFLORAL[facility]OSPITALN [facility] COVID-19 FLU/RSV DIAGNOST IC PANEL FLU A PCR (FLUVID) NEGATIVE 07/15 Specimen Type: NASOPHARYNX Comment: This test is authorized for emergency use only. False negative results may occur if virus is present at levels below the analytical limit of detection.N egative results do not preclude SARS-CoV-2, influenza or RSV infection and should not be used as the sole basis for treatment or other patient management decisions.C epheid FLUVID: HCPs: https://www .fda.gov/ok kalani/424009/ download. Patients: https://www .[facility].gov/ok kalani/944182/ download Ordering Provider: MAHADGENEFERNANDO PARSONSKAREN Report Released Date/Time: Jul 15, 2023 02:46 PM Reporting Lab: [facility]ERRFLORALA [facility]ORIAL HOSPITALN [address] [address] Performing Lab: [facility]RL [facility] [address] [address] [facility]ERRFL[facility]AL[facility]PITALN [facility] COVID-19 FLU/RSV DIAGNOST IC PANEL FLU B PCR (FLUVID) NEGATIVE 07/15 Specimen Type: NASOPHARYNX Comment: This test is authorized for emergency use only. False negative results may occur if virus is present at levels below the analytical limit of detection.N egative results do not preclude SARS-CoV-2, influenza or RSV infection and should not be used as the sole basis for treatment or other patient management decisions.C epheid FLUVID: HCPs: https://www .[facility].gov/ok kalani/193188/ download. Patients: https://www .fda.gov/ok kalani/038115/ download Ordering Provider: PAULINE TOBIN Report Released Date/Time: Jul 15, 2023 02:46 PM Reporting Lab: [facility] [address] [address] Performing Lab: [facility]ERRFL[facility]AL[facility] HOSPITALN [address] [address] [facility]ERRFL[facility]PITALN [facility] COVID-19 FLU/RSV DIAGNOST IC PANEL RSV PCR (FLUVID) NEGATIVE 07/15 Specimen Type: NASOPHARYNX Comment: This test is authorized for emergency use only. False negative results may occur if virus is present at levels below the analytical limit of detection.N egative results do not preclude SARS-CoV-2, influenza or RSV infection and should not be used as the sole basis for treatment or other patient management decisions.C epheid FLUVID: HCPs: https://www .fda.gov/ok kalani/264501/ download. Patients: https://www .fda.gov/me kalani/548569/ download Ordering Provider: PAULINE TOBIN Report Released Date/Time: Jul 15, 2023 02:46 PM Reporting Lab: [facility] [address] [facility] [address] Performing Lab: [facility] [place] [facility] [address] [facility] [address] [facility] CBC AND DIFF (AUTO) LEUKOCYTES [#/VOLUME] IN BLOOD BY AUTOMATED COUNT 6.26 10*3/uL 4.50 - 11.00 05/01 Specimen Type: BLOOD No comment entered. Ordering Provider: BUNNY MCALLISTER Report Released Date/Time: May 01, 2023 12:00 PM Reporting Lab: [facility] [place] [address] [address] Performing Lab: [facility] [place] [facility] [address] [facility] [address] [facility] CBC AND DIFF (AUTO) ERYTHROCYT ES [#/VOLUME] IN BLOOD BY AUTOMATED COUNT 3.58 10*6/uL 4.23 - 5.66 05/01 L Specimen Type: BLOOD No comment entered. Ordering Provider: BUNNY MCALLISTER Report Released Date/Time: May 01, 2023 12:00 PM Reporting Lab: [facility] [place] [facility] [address] [facility] [address] Performing Lab: [facility] [place] [address] [address] [facility] CBC AND DIFF (AUTO) HEMOGLOBIN [MASS/VOLU ME] IN BLOOD 12.0 g/dL 12.8 - 17 05/01 L Specimen Type: BLOOD No comment entered. Ordering Provider: BUNNY CMALLISTER Report Released Date/Time: May 01, 2023 12:00 PM Reporting Lab: [facility] [place] [address] [address] Performing Lab: [place] [facility] [place] [facility] [address] [facility] [address] [facility] CBC AND DIFF (AUTO) HEMATOCRIT [VOLUME FRACTION] OF BLOOD BY AUTOMATED COUNT 35.4 39.2 - 50.4 05/01 L Specimen Type: BLOOD No comment entered. Ordering Provider: BUNNY MCALLISTER Report Released Date/Time: May 01, 2023 12:00 PM Reporting Lab: [facility] [place] [facility] [address] [facility] [address] Performing Lab: [facility] [place] [facility] [address] [facility] [address] [facility] [place] CBC AND DIFF (AUTO) MCV [ENTITIC VOLUME] BY AUTOMATED COUNT 98.9 fL 82 - 99 05/01 Specimen Type: BLOOD No comment entered. Ordering Provider: BUNNY MCALLISTER Report Released Date/Time: May 01, 2023 12:00 PM Reporting Lab: [facility] [place] [facility] [address] [facility] [address] Performing Lab: [facility] [place] [facility] [address] [facility] [address] [facility] [place] CBC AND DIFF (AUTO) MCHC [MASS/VOLU ME] BY AUTOMATED COUNT 33.9 g/dL 30.8 - 35.1 05/01 Specimen Type: BLOOD No comment entered. Ordering Provider: BUNNY MCALLISTER Report Released Date/Time: May 01, 2023 12:00 PM Reporting Lab: [facility] [place] [facility] [address] [facility] [address] Performing Lab: [place] [facility] [place] [facility] [address] [facility] [address] [facility] [place] [facility] CBC AND DIFF (AUTO) PLATELETS [#/VOLUME] IN BLOOD BY AUTOMATED COUNT 167 10*3/uL 140 - 360 05/01 Specimen Type: BLOOD No comment entered. Ordering Provider: BUNNY MCALLISTER Report Released Date/Time: May 01, 2023 12:00 PM Reporting Lab: [facility] [place] [facility] [address] [facility] [address] Performing Lab: [facility] [place] [facility] [address] [facility] [address] [facility] CBC AND DIFF (AUTO) ERYTHROCYT E DISTRIBUTI ON WIDTH [RATIO] BY AUTOMATED COUNT 13.1 12.0 - 16.0 05/01 Specimen Type: BLOOD No comment entered. Ordering Provider: BUNNY MCALLISTER Report Released Date/Time: May 01, 2023 12:00 PM Reporting Lab: [facility] [place] [facility] [address] [facility] [address] Performing Lab: [facility] [place] [facility] [address] [facility] [address] [facility] CBC AND DIFF (AUTO) MONOCYTES [#/VOLUME] IN BLOOD BY AUTOMATED COUNT 0.68 10*3/uL 0.30 - 1.10 05/01 Specimen Type: BLOOD No comment entered. Ordering Provider: BUNNY MCALLISTER Report Released Date/Time: May 01, 2023 12:00 PM Reporting Lab: [facility] [place] [facility] [address] [facility] [address] Performing Lab: [facility] [place] [facility] [address] [facility] [address] [facility] CBC AND DIFF (AUTO) MCH [ENTITIC MASS] BY AUTOMATED COUNT 33.5 pg 26.2 - 32.6 05/01 H Specimen Type: BLOOD No comment entered. Ordering Provider: BUNNY MCALLISTER Report Released Date/Time: May 01, 2023 12:00 PM Reporting Lab: [facility] [place] [facility] [address] [facility] [address] Performing Lab: [facility] [place] [facility] [address] [facility] [address] [facility] CBC AND DIFF (AUTO) NEUTROPHIL S/100 LEUKOCYTES IN BLOOD BY AUTOMATED COUNT 57.2 43.7 - 75.8 05/01 Specimen Type: BLOOD No comment entered. Ordering Provider: BUNNY MCALLISTER Report Released Date/Time: May 01, 2023 12:00 PM Reporting Lab: [facility] [address] [facility] [address] Performing Lab: [facility] [address] [facility] [address] [facility] CBC AND DIFF (AUTO) LYMPHOCYTE S/100 LEUKOCYTES IN BLOOD BY AUTOMATED COUNT 29.2 14.0 - 42.3 05/01 Specimen Type: BLOOD No comment entered. Ordering Provider: BUNNY MCALLISTER Report Released Date/Time: May 01, 2023 12:00 PM Reporting Lab: [facility] [address] [facility] [address] Performing Lab: [facility] [address] [facility] [address] [facility] CBC AND DIFF (AUTO) MONOCYTES/ 100 LEUKOCYTES IN BLOOD BY AUTOMATED COUNT 10.9 5.1 - 13.7 05/01 Specimen Type: BLOOD No comment entered. Ordering Provider: BUNNY MCALLISTER Report Released Date/Time: May 01, 2023 12:00 PM Reporting Lab: [facility] [address] [facility] [address] Performing Lab: [facility] [address] [facility] [address] [facility] CBC AND DIFF (AUTO) EOSINOPHIL S/100 LEUKOCYTES IN BLOOD BY AUTOMATED COUNT 1.9 0.4 - 6.8 05/01 Specimen Type: BLOOD No comment entered. Ordering Provider: BUNNY MCALLISTER Report Released Date/Time: May 01, 2023 12:00 PM Reporting Lab: [facility] [address] [facility] [address] Performing Lab: [facility] [place] [facility] [address] [facility] [address] [place] [facility] [place] [facility] CBC AND DIFF (AUTO) BASOPHILS/ 100 LEUKOCYTES IN BLOOD BY AUTOMATED COUNT 0.5 0.1 - 2.0 05/01 Specimen Type: BLOOD No comment entered. Ordering Provider: BUNNY MCALLISTER Report Released Date/Time: May 01, 2023 12:00 PM Reporting Lab: [facility] [place] [facility] [address] [facility] [address] Performing Lab: [facility] [place] [facility] [address] [facility] [address] [place] [facility] [place] [facility] CBC AND DIFF (AUTO) NEUTROPHIL S [#/VOLUME] IN BLOOD BY AUTOMATED COUNT 3.58 10*3/uL 2.20 - 7.60 05/01 Specimen Type: BLOOD No comment entered. Ordering Provider: BUNNY MCALLISTER Report Released Date/Time: May 01, 2023 12:00 PM Reporting Lab: [facility] [place] [facility] [address] [facility] [address] Performing Lab: [facility] [place] [facility] [address] [facility] [address] [facility] [place] [facility] CBC AND DIFF (AUTO) LYMPHOCYTE S [#/VOLUME] IN BLOOD BY AUTOMATED COUNT 1.83 10*3/uL 1.00 - 3.20 05/01 Specimen Type: BLOOD No comment entered. Ordering Provider: BUNNY MCALLISTER Report Released Date/Time: May 01, 2023 12:00 PM Reporting Lab: [facility] [place] [facility] [address] [facility] [address] Performing Lab: [facility] [place] [facility] [address] [facility] [address] [place] [facility] [place] [facility] CBC AND DIFF (AUTO) EOSINOPHIL S [#/VOLUME] IN BLOOD BY AUTOMATED COUNT 0.12 10*3/uL 0.03 - 0.44 05/01 Specimen Type: BLOOD No comment entered. Ordering Provider: BUNNY MCALLISTER Report Released Date/Time: May 01, 2023 12:00 PM Reporting Lab: [facility] [place] [facility] [address] [facility] [address] Performing Lab: [facility] [place] [facility] [address] [facility] [address] [facility] [place] [facility] CBC AND DIFF (AUTO) BASOPHILS [#/VOLUME] IN BLOOD BY AUTOMATED COUNT 0.03 10*3/uL 0.01 - 0.13 05/01 Specimen Type: BLOOD No comment entered. Ordering Provider: BUNNY MCALLISTER Report Released Date/Time: May 01, 2023 12:00 PM Reporting Lab: [facility] [place] [facility] [address] [facility] [address] Performing Lab: [facility] [place] [address] [address] [facility] [place] [facility] AND DIFF (AUTO) IMMATURE GRANULOCYT ES/100 LEUKOCYTES IN BLOOD BY AUTOMATED COUNT 0.3 0.0 - 0.7 05/01 Specimen Type: BLOOD No comment entered. Ordering Provider: BUNNY MCALLISTER Report Released Date/Time: May 01, 2023 12:00 PM Reporting Lab: [facility] [address] [facility] [address] Performing Lab: [facility] [address] [place] [address] [facility] CBC AND DIFF (AUTO) IMMATURE GRANULOCYT ES [#/VOLUME] IN BLOOD 0.02 10*3/uL 0.00 - 0.06 05/01 Specimen Type: BLOOD No comment entered. Ordering Provider: BUNNY MCALLISTER Report Released Date/Time: May 01, 2023 12:00 PM Reporting Lab: [facility] [address] [facility] [address] Performing Lab: [facility] [address] [facility] [address] [facility] BASIC METABOLI C PANEL (non-fas ting) UREA NITROGEN [MASS/VOLU ME] IN SERUM OR PLASMA 19 mg/dL 7 - 25 04/15 Specimen Type: SERUM No comment entered. Ordering Provider: PAULINE TOBIN Report Released Date/Time: Apr 15, 2023 11:47 AM Reporting Lab: [facility] [address] [facility] [address] Performing Lab: [facility] [address] [facility] [address] [place] [facility] BASIC METABOLI C PANEL (non-fas ting) GLUCOSE [MASS/VOLU ME] IN SERUM OR PLASMA 104 mg/dL 65 - 100 04/15 H Specimen Type: SERUM No comment entered. Ordering Provider: PAULINE TOBIN Report Released Date/Time: Apr 15, 2023 11:47 AM Reporting Lab: [facility] [address] [address] Performing Lab: [facility] [address] [facility] [address] [facility] BASIC METABOLI C PANEL (non-fas ting) SODIUM [MOLES/VOL UME] IN SERUM OR PLASMA 137 mmol/L 135 - 145 04/15 Specimen Type: SERUM No comment entered. Ordering Provider: PAULINE TOBIN Report Released Date/Time: Apr 15, 2023 11:47 AM Reporting Lab: [facility] [address] [address] Performing Lab: [facility] [address] [address] [place] [facility] BASIC METABOLI C PANEL (non-fas ting) POTASSIUM [MOLES/VOL UME] IN SERUM OR PLASMA 4.7 mmol/L 3.5 - 5.0 04/15 Specimen Type: SERUM No comment entered. Ordering Provider: PAULINE TOBIN Report Released Date/Time: Apr 15, 2023 11:47 AM Reporting Lab: [facility] [address] [facility] [address] Performing Lab: [facility] [address] [facility] [address] [facility] BASIC METABOLI C PANEL (non-fas ting) CHLORIDE [MOLES/VOL UME] IN SERUM OR PLASMA 103 mmol/L 100 - 110 04/15 Specimen Type: SERUM No comment entered. Ordering Provider: PAULINE TOBIN Report Released Date/Time: Apr 15, 2023 11:47 AM Reporting Lab: [facility] [address] [facility] [address] Performing Lab: [facility] [address] [facility] [address] [facility] BASIC METABOLI C PANEL (non-fas ting) CARBON DIOXIDE, TOTAL [MOLES/VOL UME] IN SERUM OR PLASMA 24 meq/L 20 - 30 04/15 Specimen Type: SERUM No comment entered. Ordering Provider: PAULINE TOBIN Report Released Date/Time: Apr 15, 2023 11:47 AM Reporting Lab: [facility] [address] [facility] [address] Performing Lab: [facility] [address] [facility] [address] [facility] BASIC METABOLI C PANEL (non-fas ting) CREATININE [MASS/VOLU ME] IN SERUM OR PLASMA 0.80 mg/dL 0.50 - 1.40 04/15 Specimen Type: SERUM No comment entered. Ordering Provider: PAULINE TOBIN Report Released Date/Time: Apr 15, 2023 11:47 AM Reporting Lab: [facility] [address] [facility] [address] Performing Lab: [facility] [address] [facility] [address] [facility] BASIC METABOLI C PANEL (non-fas ting) GLOMERULAR FILTRATION RATE/1.73 SQ M.PREDICTE D [VOLUME RATE/AREA] IN SERUM, PLASMA OR BLOOD BY CREATININE -BASED FORMULA (CKD-EPI) 85 mL/min 04/15 Specimen Type: SERUM No comment entered. Ordering Provider: PAULINE TOBIN Report Released Date/Time: Apr 15, 2023 11:47 AM Reporting Lab: [place] [facility] [place] [facility] [address] [facility] [address] Performing Lab: [facility] [place] [facility] [address] [facility] [address] [facility] LIVER FUNCTION PROTEIN [MASS/VOLU ME] IN SERUM OR PLASMA 6.8 g/dL 6.0 - 8.3 04/15 Specimen Type: SERUM No comment entered. Ordering Provider: PAULINE TOBIN Report Released Date/Time: Apr 15, 2023 11:47 AM Reporting Lab: [facility] [address] [address] Performing Lab: [facility] [address] [facility] [address] [facility] LIVER FUNCTION ALBUMIN [MASS/VOLU ME] IN SERUM OR PLASMA 3.8 g/dL 3.5 - 5.0 04/15 Specimen Type: SERUM No comment entered. Ordering Provider: PAULINE TOBIN Report Released Date/Time: Apr 15, 2023 11:47 AM Reporting Lab: [facility] [place] [facility] [address] [facility] [address] Performing Lab: [facility] [address] [facility] [address] [facility] ALKALINE PHOSPHATAS E [ENZYMATIC ACTIVITY/V OLUME] IN SERUM OR PLASMA 61 U/L 40 - 150 04/15 Specimen Type: SERUM No comment entered. Ordering Provider: PAULINE TOBIN Report Released Date/Time: Apr 15, 2023 11:47 AM Reporting Lab: [place] [facility] [place] [facility] [address] [facility] [address] Performing Lab: [facility] [address] [facility] [address] [facility] LIVER FUNCTION ASPARTATE AMINOTRANS FERASE [ENZYMATIC ACTIVITY/V OLUME] IN SERUM OR PLASMA 26 U/L 5 - 34 04/15 Specimen Type: SERUM No comment entered. Ordering Provider: PAULINE TOBIN Report Released Date/Time: Apr 15, 2023 11:47 AM Reporting Lab: [facility] [address] [facility] [address] Performing Lab: [facility] [address] [facility] [address] [facility] LIVER FUNCTION ALANINE AMINOTRANS FERASE [ENZYMATIC ACTIVITY/V OLUME] IN SERUM OR PLASMA 25 U/L 04/15 Specimen Type: SERUM No comment entered. Ordering Provider: PAULINE TOBIN Report Released Date/Time: Apr 15, 2023 11:47 AM Reporting Lab: [facility] [address] [facility] [address] Performing Lab: [facility] [address] [facility] [address] [facility] LIVER FUNCTION BILIRUBIN. TOTAL [MASS/VOLU ME] IN SERUM OR PLASMA 0.3 mg/dL 0.2 - 1.2 04/15 Specimen Type: SERUM No comment entered. Ordering Provider: PAULINE TOBIN Report Released Date/Time: Apr 15, 2023 11:47 AM Reporting Lab: [facility] [address] [facility] [address] Performing Lab: [facility] [address] [facility] [address] [facility] LIPID PANEL, NON FASTING CHOLESTERO L [MASS/VOLU ME] IN SERUM OR PLASMA 133 mg/dL 04/15 Specimen Type: SERUM No comment entered. Ordering Provider: PAULINE TOBIN Report Released Date/Time: Apr 15, 2023 11:47 AM Reporting Lab: [facility] [address] [facility] [address] Performing Lab: [facility] [address] [facility] [address] [facility] LIPID PANEL, NON FASTING TRIGLYCERI DE [MASS/VOLU ME] IN SERUM OR PLASMA 196 mg/dL 0 - 150 04/15 H Specimen Type: SERUM No comment entered. Ordering Provider: PAULINE TOBIN Report Released Date/Time: Apr 15, 2023 11:47 AM Reporting Lab: [facility] [address] [facility] [address] Performing Lab: [facility] [address] [facility] [address] [facility] LIPID PANEL, NON FASTING CHOLESTERO L IN LDL [MASS/VOLU ME] IN SERUM OR PLASMA BY CALCFCO N 45 mg/dL 0 - 129 04/15 Specimen Type: SERUM No comment entered. Ordering Provider: PAULINE TOBIN Report Released Date/Time: Apr 15, 2023 11:47 AM Reporting Lab: [facility] [address] [facility] [address] Performing Lab: [facility] [address] [facility] [address] [facility] LIPID PANEL, NON FASTING CHOLESTERO L.TOTAL/CH OLESTEROL IN HDL [MASS RATIO] IN SERUM OR PLASMA 2.7 04/15 Specimen Type: SERUM No comment entered. Ordering Provider: PAULINE TOBIN Report Released Date/Time: Apr 15, 2023 11:47 AM Reporting Lab: [facility] [address] [facility] [address] Performing Lab: [facility] [address] [facility] [address] [facility] LIPID PANEL, NON FASTING CHOLESTERO L IN HDL [MASS/VOLU ME] IN SERUM OR PLASMA 49 mg/dL 40 - 60 04/15 Specimen Type: SERUM No comment entered. Ordering Provider: PAULINE TOBIN Report Released Date/Time: Apr 15, 2023 11:47 AM Reporting Lab: [facility] [address] [facility] [address] Performing Lab: [facility] [address] [facility] [address] [facility] Vital Signs Combined list of inpatient and outpatient Vital Signs from Department of Defense and Veterans Affairs, ranging from 12 months to all on record, depending upon the facility. Vital Sign Value Date Comments Source SYSTOLIC BLOOD PRESSURE 147 06/16/20 14:54:45 [facility] DIASTOLIC BLOOD PRESSURE 73 024 14:54:45 [facility] PULSE OXIMETRY 97 06/16/2024 14:54:45 [facility] WEIGHT 222 06/16/2024 14:54:45 [facility] BMI 32kg/m2 06/16/2024 14:54:45 [facility] PAIN 0 06/16/2024 14:54:45 [facility] HEIGHT 70 06/16/2024 14:54:45 [facility] TEMPERATURE 98.4 06/16/2024 14:54:45 [facility] PULSE 63 06/16/2024 14:54:45 [facility] RESPIRATION 16 06/16/2024 14:54:45 [facility] SYSTOLIC BLOOD PRESSURE 178 03/11/20 24 14:49:37 [facility] DIASTOLIC BLOOD PRESSURE 69 024 14:49:37 [facility] PULSE OXIMETRY 96 03/11/2024 14:49:37 [facility] WEIGHT 222 03/11/2024 14:49:37 [facility] BMI 33kg/m2 03/11/2024 14:49:37 [facility] TEMPERATURE 98.3 03/11/2024 14:49:37 [facility] PULSE 66 03/11/2024 14[facility]49:37 [facility] RESPIRATION 16 03/11/2024 14:49:37 [facility] SYSTOLIC BLOOD PRESSURE 121 02/27/20 24 13:46:36 [facility] DIASTOLIC BLOOD PRESSURE 61 024 13:46:36 [facility] PULSE OXIMETRY 95 02/27/2024 13:46:36 [facility] PAIN 1 02/27/2024 13:46:36 [facility] TEMPERATURE 98.2 02/27/2024 13:46:36 [facility] PULSE 70 02/27/2024 13:46:36 [facility] Encounters Combined list of: 1) Encounters from Department of Veterans Affairs facilities going back up to thelast 18 months. 2) Encounters from the Department of Defense facilities going back up to 280 months. Location Location Details Encounter Type Encounter Number Reason For Visit Attending Provider ADM Date DC Date Status Disposition Source [facility] Out[facility] Encounter [id number] 07/08 [facility] OFF/OP EST MARCH X REQ PHY/QHP [id number] Diagnos is: ICD-10- CM Z11.59 Encount er for screeni ng for other viral disease s
PONCHO TOBIN JAWED 07/15 [facility] Out[facility] Encounter [id number] 08/03 [facility] Out[facility]counter [id number] 08/04 [facility] Out[facility] Encounter [id number] 08/04 [facility] Out[facility] Encounter [id number] 08/06 [facility] Out[facility]counter [id number] 08/06 [facility] Out[facility] Encounter [id number] 08/20 [facility] OFFICE O/P EST MOD 30-39 MIN [id number] Diagnos is: ICD-10- CM 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
PONCHO TOBIN MMED JAWED 08/21 [facility]counter [id number] 08/22 [facility] [id number] 08/25 [facility] [id number] 09/09 [facility] Encounter [id number] 09/09 [facility] Encounter [id number] 09/10 [facility] Encounter [id number] 09/19 [facility]counter [id number] 09/22 [facility] Encounter [id number] 09/26 [facility]counter [id number] 09/30 [facility] Encounter [id number] 10/01 [facility] Encounter [id number] 10/02 [facility] Encounter [id number] 10/07 [facility] Encounter [id number] 10/07 [facility] Encounter [id number] 10/09 [facility] OFFICE O/P EST MOD 30-39 MIN [id number] Diagnos is: ICD-10- CM I10 Essenti al (primar y) hyperte nsion<b r/> GENE TOBINA MMED JAWED 10/13 [facility] Encounter [id number] 10/14 [facility]counter [id number] 10/15 [facility] Encounter [id number] 10/16 [facility] Encounter [id number] 10/16 [facility] Encounter [id number] 10/24 [facility] Encounter [id number] 10/24 [facility]counter [id number] 10/30 [facility]counter [id number] 11/05 [facility] Encounter [id number] 11/06 [facility] Encounter [id number] 11/11 [facility] Encounter [id number] 11/12 [facility] OFFICE O/P EST MOD 30 MIN [id number] Diagnos is: ICD-10- CM G40.909 Epileps y, unsp, not intract able, without status epilept icus
PONCHO TOBIN MMED JAWED 11/20 [facility] En[facility] [id number] 11/28 [facility]counter [id number] 11/29 [facility] Encounter [id number] 01/18 [facility] En[facility] [id number] 01/18 [facility] Encounter [id number] 01/19 [facility]counter [id number] 01/20 [facility] Encounter [id number] 01/21 [facility]counter [id number] 01/22 [facility]counter [id number] 01/26 [facility] Encounter [id number] 01/27 [facility]counter [id number] 01/28 [facility] Encounter [id number] 01/28 [facility] OFF/OP EST MARCH X REQ PHY/QHP [id number] Diagnos is: ICD-10- CM R60.9 Edema, unspeci fied
JEANCARLOS AUGUSTINY E 01/29 [facility] En[facility] [id number] 02/04 [facility]counter [id number] 02/09 [facility] Encounter [id number] 02/10 [facility] Encounter [id number] 02/18 [facility] Encounter [id number] 02/18 [facility] Encounter [id number] 02/18 [facility] Encounter [id number] 02/25 [facility] Encounter [id number] 02/25 [facility] OFF/OP EST MAY X REQ PHY/QHP [id number] Diagnos is: ICD-10- CM E78.00 Pure hyperch olester olemia, unspeci fied
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<b r/> FURCOLO,TI NA 03/11 [facility] En[facility] [id number] 03/17 [facility]counter [id number] 03/25 [facility] Encounter [id number] 03/25 [facility] Encounter [id number] 04/05 [facility]counter [id number] 04/05 [facility]counter [id number] 04/08 [facility]counter [id number] 04/13 [facility] [id number] 04/30 [facility] [id number] 05/05 [facility]counter [id number] 05/24 [facility]counter [id number] 05/25 [facility]counter [id number] 05/31 [facility] [id number] 06/02 [facility] [id number] 06/03 [facility]counter [id number] 06/03 [facility] Encounter [id number] 06/03 [facility] OFFICE O/P EST LOW 20 MIN [id number] Diagnos is: ICD-10- CM G40.909 Epileps y, unsp, not intract able, without status epilept icus
FURCOLO,TI NA 06/16 [facility] Encounter [id number]/21 [facility] En[facility] [id number] 06/22 [facility] HEARING AID FITTING/CH ECKING [id number] 1. Diagnos is: ICD-10- CM Z46.1 Encount er for fitting and adjustm ent of hearing aid<br/ > TI MONTERO 06/23 [facility] En[facility] [id number] 1.06/28 [facility]counter [id number] 07/13 [facility] HEARING AID FITTING/CH ECKING [id number] 1. Diagnos is: ICD-10- CM H90.3 Sensori neural hearing loss, bilater al
SENIOR,ARYAN OLE L 07/19 [facility] Encounter [id number] 1.07/27 [facility] CONFORMITY EVALUATION [id number] Diagnos is: ICD-10- CM Z46.1 Encount er for fitting and adjustm ent of hearing aid<br/ > TI MONTERO 08/11 [facility] Out[facility]counter [id number] 08/31 [facility]counter [id number] 10/15 [facility]counter [id number] 11/11 [facility]counter [id number] 11/11 [facility]counter [id number] 11/16 [facility]counter [id number] 11/19 [facility] Social History Combined list of available smoking, tobacco, and other social history from Department of Defense and Veterans Affairs facilities. Social History Type Response Date Comment Sour e Tobacco smoking status [facility] VA-TOBACCO NEVER USED 11/20/2023 [facility] [place] [facility] History of tobacco use VA-TOBACCO NEVER USED 12/10/2022 [place] [facility] [place] [facility] History of tobacco use VA-TOBACCO NEVER USED 11/26/2021 [facility] [place] [facility] History of tobacco use VA-TOBACCO NEVER USED 07/04/2020 [facility] [place] [facility] History of tobacco use VA-TOBACCO NEVER USED 05/25/2019 [facility] [place] [facility] History of tobacco use QUIT TOBACCO USE > 7 YEARS AGO 06/05/2018 [place] [facility] [place] [facility] History of tobacco use LIFETIME NON-TOBACCO USER 05/22/2017 [place] [facility] [place] [facility] Plan of Care List of future care activities from Department of Veterans Affairs facilities. Additional future care activities may be listed in the Assessment and Plan section. Date/Time Care Activity Care Activity Detail Facili ty 12/21/2024 AMBULATORY - MEDICINE [facility]AT[facility]
--- OUTSIDE RECORDS SUMMARY | 2024-11-24 18:03 | XMS_ITS | Encounter Summary ---
Author Name [facility] Organization [facility] Address [address] [place] [id number] Care Team Providers Care Interior Decorator Name Role Phone JUDAH VERNON Primary Care Provider Unavailabl e Insurance Providers: [...] ENID DO NOT USE Jan 01, 2006 [id number] WIDISHA BOO PATIENT ANTHEM BCBS OF [place] (BLUECARD) MEDICARE SUPPLEMEN ENDI PSUED O MEDEX BRONZ E Jan 01, 2006 [id number] [phone] WIDISHA BOO PATIENT [place] MED[place]ARE SUPPLEMEN [place] MEDEX BRONZ E Jan 01, 2006 [id number] [phone] DISHA MASON PATIENT [place] SUPPLEMEN [place] PSUED O MEDEX BRONZ E Jan 01, 2006 [id number] DISHA MASON PATIENT MEDICARE (WNR) MEDICARE (M) PART A Jul 04, 2000 PART A [id number] DISHA MASON PATIENT MEDICARE (WNR) MEDICARE (M) PART B Jul 04, 2000 PART B [id number] [phone] DISHA MASON PATIENT MEDICARE (WNR) MEDICARE (M) PART A Jul 04, 2000 PART A [id number] WIDISHA BOO PATIENT MEDICARE (WNR) MEDICARE (M) PART B Jul 04, 2000 PART B [id number] WIDISHA BOO PATIENT MEDICARE (WNR) MEDICARE (M) PART A Jul 04, 2000 PART A [id number] [phone] DISHA MASON PATIENT MEDICARE (WNR) MEDICARE (M) PART B Jul 04, 2000 PART B [id number] DISHA MASON PATIENT Selected Encounter This section includes the information on record at [place] for the Encounter. Date/Time Encounter Type Encounter Description Reason Provider Source Jul 19, 2024 03:00 PM HEARING AID FITTING/CHECKIN G AUDIOLOGY ICD-10-CM H90.3 Sensorineural hearing loss, bilateral SENIOR,KD L E Encounter Template Text not used by [place] Assessments - Encounter Diagnoses This section includes the primary and secondary diagnoses documented for the Encounter. Date/Time Primary/Secondary Diagnosis Diagnosis Name Provider Source Jul 19, 2024 05:03 PM PRIMARY Sensorineural hearing loss, bilateral SENIOR,KD L [place] [facility] [place] [facility] Jul 19, 2024 05:03 PM SECONDARY Tinnitus, bilateral SENIOR,KD L [facility] [place] [facility] Plan of Treatment: Future Appointments (+ 6 months) and Future Tests (+/- 45 days) The Plan of Treatment section includes future care activities for the patient from all [place] treatmentfacilities. This section includes future appointments and future orders which are active, pending or scheduled. Future Appointments This section includes appointments that were scheduled to occur 6 months from the date of the Encounter, up to a maximum of 20 appointments. The data comes from all [place] treatment facilities. Appointment Date/Time Appointment Type Appointme nt Facility Name Aug 11, 2024 02:00 PM AMBULATORY - REHAB MEDICIN E [place] [facility] [place] [facility] Oct 14, 2024 03:00 PM AMBULATORY - MEDICINE [facility] Dec 21, 2024 02:00 PM AMBULATORY - MEDICINE [facility] Active, Pending, and Scheduled Orders This section includes a listing of several types of active, pending, and scheduled orders, including clinic medications orders, diagnostic test orders, procedure orders and consult orders; where the start date of the order is 45 days before the date of the Encounter or 45 days after the date of theEncounter. The data comes from all [facility] facilities. Test Date/Time Test Type Test Details Facility Name Jun 16, 2024 03:41 PM Consult Order COMMUNITY CARE-NEUROLOGY Cons Film Replacement Orderer's Choice [facility] Jun 17, 2024 12:00 AM Laboratory - Chemi stry Order TSH BLOOD (SST-SERUM) [facility] Jun 17, 2024 12:00 AM Laboratory - Chemi stry Order BASIC METABOLIC PANEL (fasting) BLOOD (SST-SERUM) [facility] Jun 17, 2024 12:00 AM Laboratory - Chemi stry Order LIPID PANEL FASTING BLOOD (SST-SERUM) [facility] Jun 17, 2024 12:00 AM Laboratory - Chemi stry Order CBC BLOOD (LAV-BLOOD) [facility] Jun 17, 2024 12:00 AM Laboratory - Chemi stry Order LIVER FUNCTION BLOOD (SST-SERUM) [facility] Social History: Smoking Status (Most current) and Tobacco Use (All prior to encounter date) This section includes the most current, and the historical, smoking and tobacco- related health factors from the [place] facility where the Encounter took place. Current Smoking Status This section includes the most current smoking, or tobacco-related health factor, from the [place] facility where the Encounter took place. Date/Time Current Smoking Status Comment Facil ity Nov 20, 2023 02:00 PM VA-TOBACCO NEVER USED [facility] Tobacco Use History This section includes a history of the smoking, or tobacco-related health factors, that were collected on or before the date of the Encounter. The data comes from the [place] facility where the Encounter took place. Date/Time Smoking Status/Tobacco Use Comment F acility Dec 10, 2022 01:00 PM VA-TOBACCO NEVER USED [facility] [place] [facility] Nov 26, 2021 10:00 AM VA-TOBACCO NEVER USED [facility] [place] [facility] Jul 04, 2020 10:30 AM VA-TOBACCO NEVER USED [facility] [place] [facility] May 25, 2019 11:50 AM VA-TOBACCO NEVER USED [facility] [place] [facility] Jun 05, 2018 09:35 AM QUIT TOBACCO USE > 7 YEARS AGO [facility] [place] [facility] May 22, 2017 02:07 PM LIFETIME NON-TOBACCO USER [facility] [place] [facility] Encounter Notes: All associated encounter notes This section contains the clinical notes associated to the Encounter. Date/Time Encounter Note(s) Provider Source Jul 19, 2024 09:44 AM AUDIOLOGY E & M NOTE: LOCAL TITLE: AUDIOLOGY CLINIC STANDARD TITLE: AUDIOLOGY E & M NOTE DATE OF NOTE: JUL 19, 2024@09:44 ENTRY DATE: JUL 19, 2024@09:44:23 AUTHOR: KD VALLE COSIGNER: URGENCY: STATUS: COMPLETED AUDIOLOGY CLINIC Has ADDENDA Dx CODE: H90.3-Sensorineural Hearing Loss, Bilateral APPOINTMENT TYPE: Hearing Re-Evaluation and Hearing Aid Selection BACKGROUND/HISTORY: was seen today for a hearing re-evaluation and hearing aid selection appointment, accompanied by a family member. He was fit on 07/26/21 with a right BERNARD LAKEISHA EDGE AI YINKA 312 and a left BERNARD LAKEISHA EDGE AI CROS YINKA 312, and reports a decline in benefit from these devices. He is eligible [facility] new [facility] aids [facility] due to the age of the current devices. His last hearing evaluation was on 03/29/22 and he believes his hearing has declined somewhat since then. reports intermittent tinnitus. He denies any recent vertigo. Medical history includes: Active problems - Computerized Problem List is the source for the followin. Venous stasis syndrome 2. Hypercholesterolemia 3. Subsequent non-ST segment elevation myocardial infarction 4. Deficiency of vitamin D3 5. Epilepsy 6. Panic attack 7. Gastroesophageal reflux disease 8. Benign essential hypertension 9. Benign prostatic hyperplasia 10. Bilateral sensory hearing loss ASSESSMENT: Results of today's testing are as follows: Otoscopy was WNL bilaterally. Normal tympanograms obtained bilaterally. Pure tone audiometric testing under headphones in the right ear revealed moderate sloping to profound sensorineural hearing loss from 250-8000 Hz. Testing in the left ear revealed moderately-severe to profound sensorineural hearing loss from 250-8000 Hz. SRT WORD RECOGNITION ([place] CNC 1/2 Word List) Right 65dBHL 36% @ 85dBHL- recorded; 44% @ 85dBHL- MLV Left DNT DNT Compared to testing from 2021, hearing in the left ear has remained stable and in the right ear has decreased by 15-25dBHL from 0563-6293 Hz. HEARING AID CHECK: A firmware update was performed and hearing aids were reprogrammed to today's audiogram. It was noted that the scouring train operator chief wire was much too short on the right aid. Changed from size 3 60 gain to size 5 60 gain and [place] reported improved fit and sound quality. HEARING AID SELECTION: Different hearing aid options were discussed. [place] notes that he preferred his old Oticon hearing aids over the Ebrnard aids. Would like to try an Oticon set of CROS aids. He uses an iPhone and would like to continue using Bluetooth. [place] denies having a pacemaker and would prefer rechargeable hearing aids. A right OTICON INTENT 1 MINIRITE-R and a left OTICON CROS PX were selected and ordered in [facility]. With 's verbal consent, earmold impressions were taken bilaterally without incident for canal lock microshell molds with a size 4 105 gain scouring train operator chief for the right aid and a size 3 60 gain scouring train operator chief for the left. EDUCATION/COUNSELING: The patient was counseled re: today's hearing test results. He demonstrated satisfactory understanding of the education and plan, and was given the opportunity to ask questions throughout today's visit. PLAN: 1. RTC on 08/11/24 at 2:00PM in clinic D for 60 minute hearing aid fitting appointment. 2. Hearing re-evaluation in 3-5 years, or sooner if change in hearing occurs. Patient Education Education provided on the following topics: Hearing test results Education provided to: P Response to Education: VU Dow ____ Patient P Family F Significant Other SO Verbalizes Understanding VU Returns Demonstration RD Performs Independently PI Lacks Comprehension LC Refused Education RE Not Applicable NA /JONNIE Pace, CCC-A STAFF HEALTH COACH Signed: 07/19/2024 17:04 Receipt Acknowledged By: 07/20/2024 07:26 /kacey/ AMAURI FLOREZ LEAD CARD PLAYER 08/05/2024 ADDENDUM STATUS: COMPLETED Hearing aids received and certified, upcoming appointment scheduled on 08/11/2024. /kacey/ WILBER WHEELER Audiology Health Fire Protection Specialist Signed: 08/05/2024 07:56 [facility]
--- OUTSIDE RECORDS SUMMARY | 2024-11-24 18:04 | XMS_ITS ---
Author Name [facility] ([place]) Organization [facility] [place] Address [address] [place] [address] Care Team Providers Care Interpreter For The Deaf Name Role Phone JUDAH VERNON Primary Care Provider Unavailabl rajesh Insurance Providers: All historical and current Section [...] ENID DO NOT USE Jan 01, 2006 [id number] DISHA MASON PATIENT ANTHEM BCBS OF CT (BLUECARD) MEDICARE SUPPLEMEN [place] PSUED O MEDEX BRONZ E Jan 01, 2006 [id number] [phone] DISHA MASON PATIENT [place] SUPP[place] MEDEX BRONZ E Jan 01, 2006 [id number] DISHA MASON PATIENT [place] PSUED O MEDEX BRONZ E Jan 01, 2006 [id number] DISHA MASON PATIENT MEDICARE (WNR) MEDICARE (M) PART A Jul 04, 2000 PART A [id number] DISHA MASON PATIENT MEDICARE (WNR) MEDICARE (M) PART B Jul 04, 2000 PART B [id number] WIATER,DISHA LAGUNA PATIENT MEDICARE (WNR) MEDICARE (M) PART A Jul 04, 2000 PART A [id number] WIATER,DISHA LAGUNA PATIENT MEDICARE (WNR) MEDICARE (M) PART B Jul 04, 2000 PART B [id number] WIATER,DISHA LAGUNA PATIENT MEDICARE (WNR) MEDICARE (M) PART A Jul 04, 2000 PART A [id number] WIATER,DISHA LAGUNA PATIENT MEDICARE (WNR) MEDICARE (M) PART B Jul 04, 2000 PART B [id number] WIRAJEEV,DISHA LAGUNA PATIENT Selected Encounter This section includes the information on record at ME for the Encounter. Date/Time Encounter Type Encounter Description Reason Pro vider Source Nov 16, 2024 02:00 PM Outpatient Encounter TELEPHONE TRIAGE IHE Encounter Template Text not used by ME Plan of Treatment: Future Appointments (+ 6 months) and Future Tests (+/- 45 days) The Plan of Treatment section includes future care activities for the patient from all [place] treatmentfacilities. This section includes future appointments and future orders which are active, pending or scheduled. Future Appointments This section includes appointments that were scheduled to occur 6 months from the date of the Encounter, up to a maximum of 20 appointments. The data comes from all [place] treatment facilities. Appointment Date/Time Appointment Type Appointme nt Facility Name Dec 21, 2024 02:00 PM [facility]UL[facility] - [facility]INE [facility] Social History: Smoking Status (Most current) and Tobacco Use (All prior to encounter date) This section includes the most current, and the historical, smoking and tobacco- related health factors from the [facility] facility where the Encounter took place. Current Smoking Status This section includes the most current smoking, or tobacco-related health factor, from the [facility] facility where the Encounter took place. Date/Time Current Smoking Status Comment Estephania vazquez Nov 20, 2023 02:00 PM ME-TOBACCO NEVER USED [facility] Tobacco Use History This section includes a history of the smoking, or tobacco-related health factors, that were collected on or before the date of the Encounter. The data comes from the [place] facility where the Encounter took place. Date/Time Smoking Status/Tobacco Use Comment F acility Dec 10, 2022 01:00 PM VA-TOBACCO NEVER USED [facility] [place] [facility] Nov 26, 2021 10:00 AM VA-TOBACCO NEVER USED [facility] [place] [facility] Jul 04, 2020 10:30 AM VA-TOBACCO NEVER USED [facility] [place] [facility] May 25, 2019 11:50 AM VA-TOBACCO NEVER USED [facility] [place] [facility] Jun 05, 2018 09:35 AM QUIT TOBACCO USE > 7 YEARS AGO [facility] [place] [facility] May 22, 2017 02:07 PM LIFETIME NON-TOBACCO USER [facility] [place] [facility] Encounter Notes: All associated encounter notes This section contains the clinical notes associated to the Encounter. Date/Time Encounter Note(s) Provider Source Nov 16, 2024 04:10 PM ADDENDUM: LOCAL TITLE: Addendum STANDARD TITLE: ADDENDUM DATE OF NOTE: NOV 16, 2024@16:10:47 ENTRY DATE: NOV 16, 2024@16:10:47 AUTHOR: JUDAH VERNON COSIGNER: URGENCY: STATUS: COMPLETED i had already spoken to him about this previously and he agreed with the plan to reduce to safer lower levels. he told me he mainly ONLY took it at bedtime, rarely during the day. advanced age causes the medication to stay in the system longer. happy to consider adding another medication for anxiety to PREVENT anxiety- medication like prozac or celexa. recommend scheduling apt to discuss further /kacey/ JUDAH VERNON D.O. PHYSICIAN Signed: 11/16/2024 16:14 Receipt Acknowledged By: 11/19/2024 14:32 /kacey/ WILLIE CA, MSN, RN, CNL PRIMARY CARE TEAM NURSE --- Original Document --- 11/16/24 CCC: CLINICAL TRIAGE: Patient Demographics Patient Name: JOSUE MASON Patient Primary Address: [address] [place] [address] [place] [address] Patient Primary Phone: [phone] Patient : 1935 Patient Age: 89 Caller/Recipient Relation to Patient: Self Caller Name: JOSUE MASON Emergency Contact: TYRESE ISABELLA Triage Summary Conducted triage/discussed symptoms Utilized the Triage Tool: Yes Chief Complaint: Anxiety System WHEN: Within 24 Hours Nurse's Recommendation / WHEN: Within 24 Hours System WHERE: Clinic Nurse's Recommendation / WHERE: Telephone Visit Patient Disposition Patient/Caregiver agrees to plan of care: Yes Nursing Plan and Disposition Other course(s) of action Generated msg to PACT/Provider Provided guidance for worsening symptoms: *Caller/Patient* advised to call facilities [place] Clinical Contact Center or seek immediate medical attention for new or worsening symptoms Alternative course of action Alternative courses of action: [place] requests PCP call back to discuss symptoms. Nurse Summary Nurse Summary: START COMMUNITY FACILITATOR NOTE C/O: longstanding history of anxiety on lorazepam Had to switch neurologists, now seeing Dr. Badillo and per , this provider wants to change medication Lorazepam which he has been taking since the 1950s, he will not prescribe and it has to be prescribed by PCP who agreed to give him one lorazepam 0.5mg per day. has not yet received this med and it is listed as Pending 5-6 days without any Lorazepam and had to borrow 5 pills from his expressed that 30 pills of a lower dose of Lorazepam will not be enough as he has been taking Ativan TID and he does not feel he safely could go to once per day. Verbalized frustration he has to wait [facility] and rely on mail deliveries. He used to get from [facility]. Taking the Lorazepam 1mg at night and usually once per day, sometimes more often Tight, nervous and I have the shakes, tingling in my spine for 5 days I feel tight, anxious, off the wall, and lousy . Afraid of panic attacks and seizures starting up again. 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 Denies any chest pain. I feel my blood pressure increasing in my neck . Systolic BPs 160s when he monitors at home. Difficult to get to [facility] now as his son has gone back to work. Uses a walker all the time or wheelchair for longer distances. Denies any depression, SI/HI Old coping strategies such as driving and listening to music, visiting a friend, or walking are not possible at this time due to mobility restrictions. verbalized he does not feel he has any relief now. Encouraged him to work on deep breathing ([place] practiced while on the phone and stated he actually felt a little better), listen to music. mentioned that he enjoys his workshop and using his computer. Reinforced finding distractions and new ways to cope that are not as physically demanding. Recommendations/TXCC: 24 hours, Sky would appreciate a call from PCP to discuss anxiety management options, declined to try to schedule an appointment, She can just call me when she has time. Declined offer to schedule with [place] [facility] providers. This RN also suggested speaking with MH team, he is concerned that his nerve issues are compounded by other outside factors such as his 's illness, mobility issues as well as difficulty getting out of his home. Reinforced that mental health may have useful strategies to help manage the anxiety symptoms. I am too old to try something else, I have been on the medication for so long and while he did not agree to a MH consult, he seemed open to possibility of someone helping him with his coping strategies. Reinforced that if he feels worse, he can present to the ER, call 911 or call nursing triage which is available 26/05. [place] wrote down the [place] [facility] number and agreed to use the ER if needed for worsening anxiety symptoms. Confirmed best call back number: END COMMUNITY FACILITATOR NOTE Clinical Contact Center Codes Clinic/Location: V1 CWM PHONE CCC RN Decision Support System Output: Triage Complete Triage Date: 11/16/2024, 01:40 PM Triage Note: Decision Support Tool Used: TXCC Phone Triage 16 Nov 2024 18:16:38 +0000 [facility] Demographics 89 y/o Male Results CC: Anxiety Software suggested: Within 24 Hours Software suggested follow-up location: Clinic Values and Measures Duration of CC: 5 Days Positive Responses HPI: symptoms began after discontinuation of medication MEDS: anxiety medication MEDS: taking prescription medications daily VS: BP not taken VS: pulse not taken Negative Responses Denies: HPI: depressed mood Denies: HPI: has plans to injure another person Denies: HPI: homicidal thoughts Denies: HPI: mental status change, confusion Denies: HPI: seizure Denies: HPI: suicidal thoughts Denies: HPI: suicide planning and preparatory behavior, at some point during lifetime Denies: HPI: suicide planning and preparatory behavior, within past 3 months Denies: HPI: wished you were or could go to sleep and not wake up Denies: SOC: ETOH use [place] Education Verbal Education Provided for: Anxiety Disorder Home Care IMPORTANT: This note was created by [facility] Clinical Contact Center staff. Please do not alert the staff member by adding them as a signer for future communications. Alerts are not monitored by this user. /es/ Jada Xiong RN, BSN VISN1 CCCRN Signed: 11/16/2024 14:00 Receipt Acknowledged By: 11/17/2024 13:36 /es/ MAURY THURMAN, STRIP MACHINE OPERATOR License Practical Nurse 11/17/2024 08:06 /es/ WILLIE CA, MARIA A, RN, CNL PRIMARY CARE TEAM NURSE 11/16/2024 16:10 /es/ JUDAH VERNON D.O. PHYSICIAN JUDAH VERNON [facility] Nov 16, 2024 02:00 PM RN PROGRESS NOTE: LOCAL TITLE: CCC: CLINICAL TRIAGE STANDARD TITLE: RN PROGRESS NOTE DATE OF NOTE: NOV 16, 2024@14:00:16 ENTRY DATE: NOV 16, 2024@14:00:17 AUTHOR: JADA XIONG EXP COSIGNER: URGENCY: STATUS: COMPLETED CCC: CLINICAL TRIAGE Has ADDENDA Patient Demographics Patient Name: JOSUE MASON Patient Primary Address: [address] [place], [place] [address] Patient Primary Phone: [phone] Patient : 1935 Patient Age: 89 Caller/Recipient Relation to Patient: Self Caller Name: JOSUE MASON Emergency Contact: TYRESE MASON Triage Summary Conducted triage/discussed symptoms Utilized the Triage Tool: Yes Chief Complaint: Anxiety System WHEN: Within 24 Hours Nurse's Recommendation / WHEN: Within 24 Hours System WHERE: Clinic Nurse's Recommendation / WHERE: Telephone Visit Patient Disposition Patient/Caregiver agrees to plan of care: Yes Nursing Plan and Disposition Other course(s) of action Generated msg to PACT/Provider Provided guidance for worsening symptoms: *Caller/Patient* advised to call facilities [place] Clinical Contact Center or seek immediate medical attention for new or worsening symptoms Alternative course of action Alternative courses of action: requests PCP call back to discuss symptoms. Nurse Summary Nurse Summary: START COMMUNITY FACILITATOR NOTE C/O: longstanding history of anxiety on lorazepam Had to switch neurologists, now seeing Dr. Badillo and per , this provider wants to change medication Lorazepam which he has been taking since the 1950s, he will not prescribe and it has to be prescribed by PCP who agreed to give him one lorazepam 0.5mg per day. Sky has not yet received this med and it is listed as Pending 5-6 days without any Lorazepam and had to borrow 5 pills from his [place] expressed that 30 pills of a lower dose of Lorazepam will not be enough as he has been taking Ativan TID and he does not feel he safely could go to once per day. Verbalized frustration he has to wait for prescriptions from the [facility] and rely on mail deliveries. He used to get from [facility]. Taking the Lorazepam 1mg at night and usually once per day, sometimes more often Tight, nervous and I have the shakes, tingling in my spine for 5 days I feel tight, anxious, off the wall, and lousy . Afraid of panic attacks and seizures starting up again. 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 Denies any chest pain. I feel my blood pressure increasing in my neck . Systolic BPs 160s when he monitors at home. Difficult to get [facility] now as his son has gone back to work. Uses a walker all the time or wheelchair for longer distances. Denies any depression, SI/HI Old coping strategies such as driving and listening to music, visiting a friend, or walking are not possible at this time due to mobility restrictions. verbalized he does not feel he has any relief now. Encouraged him to work on deep breathing ( practiced while on the phone and stated he actually felt a little better), listen to music. mentioned that he enjoys his workshop and using his computer. Reinforced finding distractions and new ways to cope that are not as physically demanding. Recommendations/TXCC: 24 hours, would appreciate a call from PCP to discuss anxiety management options, declined to try to schedule an appointment, She can just call me when she has time. Declined offer to schedule with [facility] providers. This RN also suggested speaking with MH team, he is concerned that his nerve issues are compounded by other outside factors such as his 's illness, mobility issues as well as difficulty getting out of his home. Reinforced that mental health may have useful strategies to help manage the anxiety symptoms. I am too old to try something else, I have been on the medication for so long and while he did not agree to a MH consult, he seemed open to possibility of someone helping him with his coping strategies. Reinforced that if he feels worse, he can present to the ER, call 911 or call nursing triage which is available 26/05. [place] wrote down the [place] [employer] [facility] number and agreed to use the ER if needed for worsening anxiety symptoms. Confirmed best call back number: END COMMUNITY FACILITATOR NOTE Clinical Contact Center Codes Clinic/Location: V1 CWM PHONE CCC RN Decision Support System Output: Triage Complete Triage Date: 11/16/2024, 01:40 PM Triage Note: Decision Support Tool Used: TXCC Phone Triage 16 Nov 2024 18:16:38 +0000 [facility] Demographics 89 y/o Male Results CC: Anxiety Software suggested: Within 24 Hours Software suggested follow-up location: Clinic Values and Measures Duration of CC: 5 Days Positive Responses HPI: symptoms began after discontinuation of medication MEDS: anxiety medication MEDS: taking prescription medications daily VS: BP not taken VS: pulse not taken Negative Responses Denies: HPI: depressed mood Denies: HPI: has plans to injure another person Denies: HPI: homicidal thoughts Denies: HPI: mental status change, confusion Denies: HPI: seizure Denies: HPI: suicidal thoughts Denies: HPI: suicide planning and preparatory behavior, at some point during lifetime Denies: HPI: suicide planning and preparatory behavior, within past 3 months Denies: HPI: wished you were or could go to sleep and not wake up Denies: SOC: ETOH use Education Verbal Education Provided for: Anxiety Disorder Home Care IMPORTANT: This note was created by [facility] Clinical Contact Center staff. Please do not alert the staff member by adding them as a signer for future communications. Alerts are not monitored by this user. /kacey/ Jada Xiong, RN, BSN VISN1 CCCRN Signed: 11/16/2024 14:00 Receipt Acknowledged By: 11/17/2024 13:36 /kacey/ MAURY THURMAN, STRIP MACHINE OPERATOR License Practical Nurse 11/17/2024 08:06 /kacey/ WILLIE CA, MSN, RN, CNL PRIMARY CARE TEAM NURSE 11/16/2024 16:10 /kacey/ JUDAH VERNON D.O. PHYSICIAN 11/16/2024 ADDENDUM STATUS: COMPLETED i had already spoken to him about this previously and he agreed with the plan to reduce to safer lower levels. he told me he mainly ONLY took it at bedtime, rarely during the day. advanced age causes the medication to stay in the system longer. happy to consider adding another medication for anxiety to PREVENT anxiety- medication like prozac or celexa. recommend scheduling apt to discuss further /song VERNON D.O. PHYSICIAN Signed: 11/16/2024 16:14 Receipt Acknowledged By: * AWAITING SIGNATURE * WILLIE CA MELISSA A [facility]
--- OUTSIDE RECORDS SUMMARY | 2024-11-24 18:04 | XMS_ITS | Encounter Summary ---
Author Name [facility] Organization [facility] [facility] [place] Address [address] [place] [address] Care Team Providers Care Production Assembly Supervisor Name Role Phone JUDAH VERNON Primary [...] ENID DO NOT USE Jan 01, 2006 [id number] DISHA MASON PATIENT ANTHEM BCBS OF CT (BLUECARD) MEDICARE SUPPLEMEN [place] PSUED O MEDEX BRONZ E Jan 01, 2006 [id number] [phone] WIDISHA BOO PATIENT [place]BS [place] MEDICARE SUPPLEMEN [place] MEDEX BRONZ E Jan 01, 2006 [id number] [phone] DISHA MASON PATIENT [place] MEDIC[place] SUPPLEMEN [place] PSUED O MEDEX BRONZ E Jan 01, 2006 [id number] DISHA MASON PATIENT MEDICARE (WNR) MEDICARE (M) PART A Jul 04, 2000 PART A [id number] DISHA MASON PATIENT MEDICARE (WNR) MEDICARE (M) PART B Jul 04, 2000 PART B [id number] WIATER,DISHA LAGUNA PATIENT MEDICARE (WNR) MEDICARE (M) PART A Jul 04, 2000 PART A [id number] 98A WIATER,DISHA LAGUNA PATIENT MEDICARE (WNR) MEDICARE (M) PART B Jul 04, 2000 PART B [id number] WIATER,DISHA LAGUNA PATIENT MEDICARE (WNR) MEDICARE (M) PART A Jul 04, 2000 PART A [id number] WIATER,DISHA LAGUNA PATIENT MEDICARE (WNR) MEDICARE (M) PART B Jul 04, 2000 PART B [id number] WIATERDISHA PATIENT Selected Encounter This section includes the information on record at ID for the Encounter. Date/Time Encounter Type Encounter Description Reason Pro vider Source Nov 11, 2024 04:07 PM Outpatient Encounter ADMIN PAT ACTIVTIES (MASNONCT) IHE Encounter Template Text not used by ID Plan of Treatment: Future Appointments (+ 6 months) and Future Tests (+/- 45 days) The Plan of Treatment section includes future care activities for the patient from all ID treatmentfacilities. This section includes future appointments and future orders which are active, pending or scheduled. Future Appointments This section includes appointments that were scheduled to occur 6 months from the date of the Encounter, up to a maximum of 20 appointments. The data comes from all ID treatment facilities. Appointment Date/Time Appointment Type Appointme nt Facility Name Dec 21, 2024 02:00 PM [facility] Social History: Smoking Status (Most current) [...] Encounter took place. Date/Time Current Smoking Status Greer vazquez Nov 20, 2023 02:00 PM ID[facility] Tobacco Use History This section includes a history of the smoking, or tobacco-related health factors, that were collected on or before the date of the Encounter. The data comes from the ID facility where the Encounter took place. Date/Time Smoking Status/Tobacco Use Comment Dedra gorman Dec 10, 2022 01:00 PM VA-TOBACCO NEVER USED [facility] [place] [facility] Nov 26, 2021 10:00 AM VA-TOBACCO NEVER USED [facility] [place] [facility] Jul 04, 2020 10:30 AM VA-TOBACCO NEVER USED [facility] [place] [facility] May 25, 2019 11:50 AM VA-TOBACCO NEVER USED [facility] [place] [facility] Jun 05, 2018 09:35 AM QUIT TOBACCO USE > 7 YEARS AGO [facility] [place] [facility] May 22, 2017 02:07 PM LIFETIME NON-TOBACCO USER [facility] [place] [facility] Encounter Notes: All associated encounter notes This section contains the clinical notes associated to the Encounter. Date/Time Encounter Note(s) Provider Source Nov 11, 2024 04:07 PM ADMINISTRATIVE NOT E: LOCAL TITLE: CCC: SCHEDULING ADMINISTRATION STANDARD TITLE: ADMINISTRATIVE NOTE DATE OF NOTE: NOV 11, 2024@16:07:08 ENTRY DATE: NOV 11, 2024@16:07:09 AUTHOR: LUDWIG ZAVALA COSIGNER: URGENCY: STATUS: COMPLETED CCC: SCHEDULING ADMINISTRATION Has ADDENDA Patient Demographics Patient Name: JOSUE MASON Patient Primary Phone: [phone] Patient Primary [address]: [address] [place] [address] Patient : 1935 Patient Age: 89 Caller/Recipient Relation to Patient: Self Caller Name: JOSUE MASON Administrative Administrative Note Reason: Medication Renewal NonVA Medications Refill/Renewal Request: Medication - Dosage - SIG - Documented Date - Documented By - Comments LORAZEPAM 1MG TAB - 1 TABLET - TAKE ONE TABLET BY MOUTH TWICE DAILY NEEDED - 2017-05-22 - ALEX TOBIN - PLEASE RENEW/FILL AN MAIL TO ADDRESS ON FILE STATES HE NEEDS IT NONA HE IS OUT OF IT. IMPORTANT: This note was created by [facility] staff. Please do not alert the staff member by adding them as a signer for future communications. Alerts are not monitored by this user. /kacey/ LUDWIG ZAVALA VISN1 [facility] A[facility] Signed: 11/11/2024 16:07 Receipt Acknowledged By: 11/11/2024 16:25 /song VERNON D.O. PHYSICIAN 11/12/2024 08:11 /kacey/ WILLIE CA, MSN, RN, CNL PRIMARY CARE TEAM NURSE 11/11/2024 ADDENDUM STATUS: COMPLETED this was previosuly prescribed by his neurologist Dr. Murphy. His new neurologist (in his note) states he does NOT think this is a good medication for him - can contirbute to confusion and falls and does NOT want him to continue on this medication- or to use it only SPARINGLY. he wants PCP to take over. patient states he has taken it for years- takes only 1 at bedtime usually. occasionally another during day. discussed reducing to 0.5 mg dose and only once daily. disucssed advanced age and fall risk- safe to take less. discussed at length with and he agrees with the plan /kacey/ JUDAH VERNON D.O. PHYSICIAN Signed: 11/11/2024 16:38 LUDWIG ZAVALA [facility]
--- OUTSIDE RECORDS SUMMARY | 2024-11-24 18:04 | XMS_ITS | Data Portability ---
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 Seizure disorder, well-managed on Dilantin without side effects; ? 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 >>>>>>>>>>>>[facility] er 2023 Evidence for myofascial etiology of left finger symptoms: Left middle trapezius includes vertical ropelike portion palpation of which, in the middle of it adjacent immediately to the scapula, reproduces the tingling numbness. I offered physical therapy. [facility] not successfully had referral to a local physical therapist? [facility] on [address]. We agree I will put in referral there. If this does not work out because of his [facility], I will defer to primary care for reproducing this referral to a physical therapist [facility]. Medications per patient: Dilantin, tamsulosin, pantoprazole, metoprolol, clopidogrel, aspirin low-dose, atorvastatin 40 mg, lorazepam, metoprolol. He is on Dilantin for seizure control. He spontaneously says that he would be hesitant to switch Dilantin to any other medication as he has been on it without incident for so many years that she would be scared of breakthrough seizure with any changes. Therefore, I will not suggest any changes, even though there are potential side effects for the elderly not present with newer antiseizure medications. There are potential interactions with medications that are more frequently used for the elderly then with newer antiseizure medications. If any of these potential issues becomes an actual problem, we can cross that bridge at that time. Among his other medications, his previous neurologist had also been prescribing lorazepam for years for tension that he has had all his life. He still feels tension. I do not generally prescribe benzodiazepines on a chronic basis. The lorazepam is evidently not sufficient to address his tension. Replacement medication or at least adjunct medication is indicated. I defer to primary care or psychiatry at the [facility] for this. We have therefore discussed that I am not going to take over the lorazepam at the present time and that I defer to [facility] healthcare providers. However, abrupt discontinuation of lorazepam may cause serious harm. If they run into any bureaucracy tried to move forward on treatment for his tension, I will certainly fill the lorazepam on a temporary basis until they straighten this out. They both understand and will call me if it becomes a problem. Of note, previous neurologist chart note that I have access to states no etiology was evident for falls that started in the late leading to his hip fracture and subsequent dependency on walker. 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 Assuming that late is after August 01, 2017, the cerebellar chronic hemorrhages plausibly related to his gait disability at that time. 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 I do not think this is causing symptoms from history the patient gives. I do not think further evaluation is indicated. >>>>>>>>>>>> PLAN Timothy Cantrell October 14, 2024 Seizure control: Dilantin extended release 100 mg capsules three times daily are prescribed for Treatment of intermittent left-sided finger numbness: Physical therapy for myofascial release of left middle trapezius taut band medial to scapula, palpation of which recreates patient's problem: Intermittent tingling numbness in fingers 2-3, sometimes digit one. A referral has been sent to this physical therapy office. However, you have to make an initial phone call, to the number below, to set up the initial appointment. Follow-up in 6 months ramy Not available 10/14/2024 16:41:32 Plan of Treatment Reminders Order Date Submit Date Provider Last Modified By Organization Details Last Modified Time Details Appointments FOLLOW UP EXT 2024 02:30P Karie Arroyo MD PhD Not available Not available Not available Lab None recorded. Referral neurologi c physical therapist referral - Physical therapy for myofascia l release of left middle trapezius taut band medial to scapula, palpation of which recreates patient's problem: Intermitt ent tingling numbness in fingers 2-3, sometimes digit one. 2023 024 [email or web address] - [address] , [address], [place], [address], 11/11/2024 13:19:18 Procedures None recorded. Surgeries None recorded. Imaging None recorded. Medication Orders Dilantin Extended 100 mg capsule 2023 024 [facility] #[id number], [address] [facility], [place], [address], 10/14/2024 16:06:45 Patient TargetsNo targets recorded. Patient Instructions Encounter Date Encounter Id Patient Instructions Last Modified By Organization Details Last Modified Time 10/14/2024 [id number] Discussion acros s issues of diagnoses and management and same day associated chart review and management greater than 50% greater than 60 minutes [email or web address] Not available 10/14/2024 16:41:46 Reason for Referral Physical therapy for myofasc ial release of left middle trapezius taut band medial to scapula, palpation of which recreates patient's problem: Intermittent tingling numbness in fingers 2-3, sometimes digit one. Referring Physician: Timothy Arroyo, Neurology, Encounter Date: 10/14/2024 Procedures Surgical History Date Name Laterality Status Provider Name and Address Organization Details Recorded Time 10/14/2024 DATA REVIEW completed Timothy Arroyo MD [address] [place] [address] [place], [address], [facility] Neurology [facility] 10/14/2024 16:40:08 Imaging Results None recorded. Procedure Notes None recorded. Medical Equipment None Reported. Allergies No known drug allergies Medications Name Sig Start Date Stop Date Status Note LastModified by Organization Details LastModified Time atorvastatin 40 mg tablet TAKE 1 TABLET ORALLY DAILY active Not Available Not Available No t Available metoprolol succinate ER 50 mg tablet,extende d release 24 hr TAKE 1 TABLET BY MOUTH EVERY DAY active Not Available Not Available No t Available metoprolol succinate ER 100 mg tablet,extende d release 24 hr TAKE 1/2 TABLET BY MOUTH DAILY active Not Available Not Available No t Available phenytoin sodium extended 100 mg capsule Take 1 capsule 3 times a day by oral route for 30 days. active Not Available Not Available No t Available tamsulosin 0.4 mg capsule TAKE 2 CAPSULES BY MOUTH AT BEDTIME active Not Available Not Available No t Available omeprazole 20 mg capsule,delaye d release TAKE 1 CAPSULE BY MOUTH EVERY DAY 30 MINUTES BEFORE MORNING MEAL FOR 30 DAYS active Not Available Not Available No t Available furosemide 20 mg tablet TAKE 1 TABLET BY MOUTH EVERY DAY active Not Available Not Available No t Available lorazepam 1 mg tablet TAKE 1 TABLET BY MOUTH TWICE A DAY TO 3 TIMES A DAY NEEDED FOR ANXIETY active Not Available Not Available No t Available aspirin active Not Available Not Avail able Not Available clopidogrel active Not Available Not A vailable Not Available pantoprazole active Not Available Not Available Not Available Vitals Date Recorded Body height Body mass index (BMI) Body weight Respiratory rate Provider Name and Address Organization Details Last Updated DateTime 10/14/2024 180.34 cm 31.2 kg/m2 681157.69 g 12 /min Rocio Medellin [facility] 10/14/2024 15:09:07 Social History Question Answer Notes LastModified by Organizat ion Details LastModified Time Tobacco Smoking Status Never Smoker [facility] 10/14/2024 15:09:29 What Is Your Level Of Alcohol Consumption? None Information not available 10/14/2024 What Is Your Level Of Caffeine Consumption? Moderate Information not available 10/14/2024 What Is The Highest Grade Or Level Of School You Have Completed Or The Highest Degree You Have Received? [id number] Information not available 10/14/2024 Which Of Your Hands Is Dominant? Right Information not available 10/14/2024 Sex: Unknown Functional Status None recorded. Mental Status None recorded. Family History Relationship Description Onset Age of this Age Resolved Age Notes LastModified by Organization Details LastModified Time Unspecified Relation Seizure Not available 15:09:18 Medical History Condition Response Claustrophobia N Head Trauma/Injury N Hospitalizations N High Blood Pressure or Hypertension Y Thyroid Problems N Depression N Brain Tumors N Lung Disease N COPD or emphysema N Encephalitis N PTSD N Vitamin B12 deficiency N Heart Attack ([place]) N Spine Problems N Obstructive Sleep Apnea N Alcoholism N Diabetes N Autoimmune disease N Bleeding Disorder N Arthritis N Cerebral Palsy N Tuberculosis N Developmental Problems N Neck Problems N Cancer N Back Problems N Stroke N Asthma N Heartburn, acid reflux, GERD Y Vitamin D Deficiency N Epilepsy/Seizures N Bipolar Disorder N Sleep Disorder N Aneurysm N Hepatitis N Liver Disease N Heart Disease N Fibromyalgia N Headaches N High Cholesterol or Hyperlipidemia Y Osteoporosis N Kidney Disease N Past Encounters Encounter ID Performer Location Encounter Start Date Encounter Closed Date Diagnosis/Indication Diagnosis SNOMED-CT Code Diagnosis ICD10 Code Diagnosis Note [id number] Timothy Arroyo MD [facility] [address] [place] [address] [place] [address] 10/14/2024 14:55:05 10/14/2024 16:42:55 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 Health Concerns Section Related Observation LastModified by Organization Detai ls LastModified Time None Recorded Concern Status LastModified by Organization Details LastModified Time None Recorded Advance Directives Directive None Recorded Payers Encounter Date Sequence Insurance Name Policy Number Policy Rdz Covered Member ID Rdz Member ID Guarantor Name 10/14/2024 [facility] ([facility] Timothy Cantrell [id number] Timothy Cantrell Notes Date Note Type Note Provider Name and Address Organization Details Recorded Time 10/14/2024 text/html >>>>>>>>>>>>Dece mb er 2023 presenting symptomotology:Cooper de la garzangozi Ahuja Tamia presents for initial neurology consultation for assessment and management of seizure disorder.? Past history per chart includes hypercholesterolem ia, hypertension, myocardial infarctions, late 2009' cervical laminectomy after which he had gait problems, context May 09 2024 brain MRI, unchanged from August 01, 2017 reflecting chronic cerebellar hemorrhages; status post August 2023 hip fracture, falling before that, in wheelchair since then, GERD, hearing loss, vitamin D deficiency, anxiety.? He is accompanied Ed Delia, longtime significant other of patient's daughter.He has had seizures, but they are well-managed now. He has not had a seizure in recent times. He takes Dilantin 100 mg capsules, 1 capsule three times a day and feels there are no side effects.Otherwise, his main problem is intermittent numbness in left-sided fingers to & three, sometimes also digit walk. This has been going on for ~1 year. It tends to happen if he leans back on the left side of his back in a certain way. He also sometimes wakes with this. His previous neurologist gave him a carpal tunnel splint which he wore for about a week. It did not help. Timothy Arroyo MD [address] [place], [place] [address], [phone], [facility] Neurology [facility] 10/14/2024 16:42:08
--- OUTSIDE RECORDS SUMMARY | 2024-11-24 18:04 | XMS_ITS | Encounter Summary ---
Author Name [facility] [facility] [place] Address [address] [place] [id number] Care Team Providers Care Cloth Weaver Name Role Phone JUDAH VERNON Primary Care [...] ENID DO NOT USE Jan 01, 2006 [id number] DISHA MASON PATIENT ANTHEM BCBS OF [place] (BLUECARD) MEDICARE SUPPLEMEN [place] PSUED O MEDEX BRONZ E Jan 01, 2006 [id number] WIDISHA BOO PATIENT [place] SUPPLE[place] EN[place] MEDEX BRONZ E Jan 01, 2006 [id number] [phone] DISHA MASON [place]IENT [place] PSUED [place] MEDEX BRON[place] E Jan 01, 2006 [id number] DISHA MASON PATIENT MEDICARE (WNR) MEDICARE (M) PART A Jul 04, 2000 PART A [id number] DISHA MASON PATIENT MEDICARE (WNR) MEDICARE (M) PART B Jul 04, 2000 PART B [id number] WIATER,DISHA LAGUNA PATIENT MEDICARE (WNR) MEDICARE (M) PART A Jul 04, 2000 PART A [id number] WIATER,DISHA LAGUNA PATIENT MEDICARE (WNR) MEDICARE (M) PART B Jul 04, 2000 PART B [id number] WIATER,DISHA LAGUNA PATIENT MEDICARE (WNR) MEDICARE (M) PART A Jul 04, 2000 PART A [id number] [phone] WIATER,DISHA LAGUNA PATIENT MEDICARE (WNR) MEDICARE (M) PART B Jul 04, 2000 PART B [id number] WIATERDISHA PATIENT Selected Encounter This section includes the information on record at [place] for the Encounter. Date/Time Encounter Type Encounter Description Reason Pro vider Source Nov 11, 2024 02:47 PM Outpatient Encounter ADMIN PAT ACTIVTIES (MASNONCT) IHE Encounter Template Text not used by [place] Plan of Treatment: Future Appointments (+ 6 months) and Future Tests (+/- 45 days) The Plan of Treatment section includes future care activities for the patient from all [place] treatmentfacilities. This section includes future appointments and future orders which are active, pending or scheduled. Future Appointments This section includes appointments that were scheduled to occur 6 months from the date of the Encounter, up to a maximum of 20 appointments. The data comes from all [place] treatment facilities. Appointment Date/Time Appointment Type Appointme nt Facility Name Dec 21, 2024 02:00 PM [facility]BUL[facility] - [facility] Social History: Smoking Status (Most current) [...] Greer vazquez Nov 20, 2023 02:00 PM [place] Tobacco Use History This section includes a history of the smoking, or tobacco-related health factors, that were collected on or before the date of the Encounter. The data comes from the [place] facility where the Encounter took place. Date/Time Smoking Status/Tobacco Use Comment F sherif Dec 10, 2022 01:00 PM [place]-TOBACCO NEVER USED [facility] Nov 26, 2021 10:00 AM VA-TOBACCO NEVER USED [facility] Jul 04, 2020 10:30 AM VA-TOBACCO NEVER USED [facility] May 25, 2019 11:50 AM VA-TOBACCO NEVER USED [facility] Jun 05, 2018 09:35 AM QUIT TOBACCO USE > 7 YEARS AGO [facility] May 22, 2017 02:07 PM LIFETIME NON-TOBACCO USER [facility] Encounter Notes: All associated encounter notes This section contains the clinical notes associated to the Encounter. Date/Time Encounter Note(s) Provider Source Nov 11, 2024 02:47 PM ADMINISTRATIVE NOT E: LOCAL TITLE: CCC: SCHEDULING ADMINISTRATION STANDARD TITLE: ADMINISTRATIVE NOTE DATE OF NOTE: NOV 11, 2024@14:47:07 ENTRY DATE: NOV 11, 2024@14:47:07 AUTHOR: WILBER HATFIELD COSIGNER: URGENCY: STATUS: COMPLETED CCC: SCHEDULING ADMINISTRATION Has ADDENDA Patient Demographics Patient Name: JOSUE MASON Patient Primary Phone: [phone] Patient Primary Address: [address] [place] [address] Patient : 1935 Patient Age: 89 Caller/Recipient Relation to Patient: Self Caller Name: JOSUE MASON Administrative Administrative Note Reason: Other Administrative Note Comments: Veterans Neurologist Dr. Murphy is requesting a call back to discuss veterans Lorazepam [phone] IMPORTANT: This note was created by [facility] staff. Please do not alert the staff member by adding them as a signer for future communications. Alerts are not monitored by this user. /kacey/ WILBER HATFIELD VISN1 [facility] Signed: 11/11/2024 14:47 Receipt Acknowledged By: 11/12/2024 13:54 /kacey/ MAURY THURMAN LPN License Practical Nurse 11/12/2024 08:27 /kacey/ WILLIE CA, MSN, RN, CNL PRIMARY CARE TEAM NURSE 11/12/2024 ADDENDUM STATUS: COMPLETED Dr. Vernon reviewed Dr. Murphy, previous Neurologist who ordered Lorazepam, called and spoke with concerning Lorazepam. Medication ordered at a reduced dosage: 0.5 mg dose and only once daily. /kacey/ WILLIE CA, MSN, RN, CNL PRIMARY CARE TEAM NURSE Signed: 11/12/2024 08:27 [facility] HATFIELD [facility]
--- OUTSIDE RECORDS SUMMARY | 2024-11-24 18:04 | XMS_ITS | Encounter Summary ---
Author Name [facility] [place] Organization [facility] Address [address] [place] [id number] Care Team Providers Care Brand Leader Name Role Phone JUDAH VERNON Primary Care [...] ENID DO NOT USE Jan 01, 2006 [id number] [phone] DISHA MASON PATIENT ANTHEM BCBS OF CT (BLUECARD) MEDICARE SUPPLEMEN [place] PSUED O MEDEX BRONZ E Jan 01, 2006 [id number] [phone] WIDISHA BOO PATIENT [place] SUPPLE[place] EN[place] MEDEX BRONZ E Jan 01, 2006 [id number] [phone] DISHA MAS[place] PSUED [place] MEDEX BRONZ E Jan 01, 2006 [id number] DISHA MASON PATIENT MEDICARE (WNR) MEDICARE (M) PART A Jul 04, 2000 PART A [id number] [phone] DISHA MASON PATIENT MEDICARE (WNR) MEDICARE (M) PART B Jul 04, 2000 PART B [id number] WIATER,DISHA LAGUNA PATIENT MEDICARE (WNR) MEDICARE (M) PART A Jul 04, 2000 PART A [id number] WIATER,DISHA LAGUNA PATIENT MEDICARE (WNR) MEDICARE (M) PART B Jul 04, 2000 PART B [id number] WIATER,DISHA LAGUNA PATIENT MEDICARE (WNR) MEDICARE (M) PART A Jul 04, 2000 PART A [id number] WIATER,DISHA LAGUNA PATIENT MEDICARE (WNR) MEDICARE (M) PART B Jul 04, 2000 PART B [id number] WIATER,DISHA LAGUNA PATIENT Selected Encounter This section includes the information on record at [place] for the Encounter. Date/Time Encounter Type Encounter Description Reason Provider Source Aug 11, 2024 02:00 PM CONFORMITY EVALUATION AUDIOLOGY ICD-10-CM Z46.1 Encounter for fitting and adjustment of hearing aid CHRISTIANO MONTERO Mel[place] Encounter Template Text not used by [place] Assessments - Encounter Diagnoses This section includes the primary and secondary diagnoses documented for the Encounter. Date/Time Primary/Secondary Diagnosis Diagnosis Name Provider Source Aug 11, 2024 03:28 PM PRIMARY Encounter for fitting and adjustment of hearing aid JOJO MONTERO [facility] Aug 11, 2024 03:28 PM SECONDARY Sensorineural hearing loss, bilateral [facility]TEROJOJO [facility] Plan of Treatment: Future Appointments (+ 6 months) and Future Tests (+/- 45 days) The Plan of Treatment section includes future care activities for the patient from all [place] treatmentfacilities. This section includes future appointments and future orders which are active, pending or scheduled. Future Appointments This section includes appointments that were scheduled to occur 6 months from the date of the Encounter, up to a maximum of 20 appointments. The data comes from all [place] treatment facilities. Appointment Date/Time Appointment Type Appointme nt Facility Name Oct 14, 2024 03:00 PM [facility] Dec 21, 2024 02:00 PM [facility] [place] [facility] Social History: Smoking Status (Most current) and Tobacco Use (All prior to encounter date) This section includes the most current, and the historical, smoking and tobacco- related health factors from the [place] facility where the Encounter took place. Current Smoking Status This section includes the most current smoking, or tobacco-related health factor, from the [place] facility where the Encounter took place. Date/Time Current Smoking Status Comment Estephania ity Nov 20, 2023 02:00 PM VA-TOBACCO NEVER USED [facility] Tobacco Use History This section includes a history of the smoking, or tobacco-related health factors, that were collected on or before the date of the Encounter. The data comes from the [place] facility where the Encounter took place. Date/Time Smoking Status/Tobacco Use Comment F acky Dec 10, 2022 01:00 PM VA-TOBACCO NEVER USED [place] [facility] [place] [facility] Nov 26, 2021 10:00 AM VA-TOBACCO NEVER USED [place] [facility] [place] [facility] Jul 04, 2020 10:30 AM VA-TOBACCO NEVER USED [place] [facility] [place] [facility] May 25, 2019 11:50 AM VA-TOBACCO NEVER USED [place] [facility] [place] [facility] Jun 05, 2018 09:35 AM QUIT TOBACCO USE > 7 YEARS AGO [place] [facility] [place] [facility] May 22, 2017 02:07 PM LIFETIME NON-TOBACCO USER [facility] Encounter Notes: All associated encounter notes This section contains the clinical notes associated to the Encounter. Date/Time Encounter Note(s) Provider Source Aug 11, 2024 07:50 AM AUDIOLOGY E & M NOTE: LOCAL TITLE: AUDIOLOGY CLINIC STANDARD TITLE: AUDIOLOGY E & M NOTE DATE OF NOTE: AUG 11, 2024@07:50 ENTRY DATE: AUG 11, 2024@07:50:57 AUTHOR: CHRISTIANO MONTERO COSIGNER: URGENCY: STATUS: COMPLETED Dx CODE: Z46.1- Encounter for Fitting/Programming Hearing Aid(s); H90.3- Sensorineural Hearing Loss, Bilateral APPOINTMENT TYPE: Hearing Aid Fitting SUBJECTIVE (S): The patient was seen for hearing aid fitting and issuance. He had previously been evaluated and found to exhibit significant hearing loss for which amplification was recommended. He is a previous user of Bernard Araiza AI YINKA/CROS YINKA. How does the patient best learn? Verbal instruction, demonstration Does the patient have any cultural and zoroastrianism beliefs, emotional barriers, physical or cognitive limitations, and communication barriers which may impact his ability to learn? No Desire and motivation to learn? Good OBJECTIVE (O): Physical fit of hearing aids was good. Patient verified comfort. Verification of an appropriate acoustic response was obtained using Real Ear measurements (speech mapping) and NAL-NL2 targets. The patient reported good subjective benefit as well. Feedback clinical application manager was run. Hearing aids were found to be meeting targets adequately and MPO was not exceeding estimated UCL. Settings stored in ALBERTO. ASSESSMENT (A): The following devices were issued: Make: Oticon Intent 1 [id number]-oinsl CROS PX- left Model: Evolv AI ITC Rechargeable Right Serial Number: [id number] Left Serial Number: [id number] Battery size: RECHARGEABLE Warranty ends: 08/28/27 Trial Period ends: 01/25/25 Domes/Wax guards: Prowax- right mini Prowax- left Experience Planning Strategist: size 4 105- right size 3- left Earmold: Acrylic canal lock Program(s): Automatic Button(s): Short press= disabled on right aid Long press= on/off Fitting Formula: NAL-NL2 Remote Programming: HAs are capable BlueTooth: Connected to iPhone and Header Boss wilder Please note the hearing aids ordered require two different charging bases and two different wax guards. Counseling was completed throughout todays appointment using a standardized curriculum that includes but is not limited to; realistic expectations with amplification in adverse listening environments, acclimatization to own voice and environmental sounds (following real-ear measurements), the importance of consistent use of amplification, proper insertion/removal, care and maintenance (including wax guards/domes if applicable), signal and alerts of devices, and charging/batteries. The was provided the opportunity to practice in office and reports confidence/understanding in all items reviewed. Time Spent= 20 minutes The patient was informed of and signed/agreed to [place] policy on hearing aid issuance: Yes Users are responsible for the maintenance and security of their devices. Determination of need to replace a hearing aid is made by the [place] hand stoner. Hearing aids will not be replaced in cases of neglect, abuse, or excessive loss. Items issued are for personal use only. Prognosis for successful hearing aid use is good. PLAN (P): 1. Follow-up for programming/adjustments as needed. 2. The International Outcome Inventory-Hearing Aids (IOI-POOL) will be mailed to the in four weeks. He was asked to complete and mail back to clinic after completion. Patient Education Education provided on the following topics: Hearing aid use, care, maintenance Education provided to: P Response to Education: DEWAYNE, RD, PI Dow Patient P Family F Significant Other SO Verbalizes Understanding VU Returns Demonstration RD Performs Independently PI Lacks Comprehension LC Refused Education RE Not Applicable NA /kacey/ CHRISTIANO MONTERO STAFF AIR BATTLE MANAGER Signed: 08/11/2024 15:28 CHRISTIANO MONTERO [place] [facility] [place] [facility]
--- OUTSIDE RECORDS SUMMARY | 2024-11-24 18:04 | XMS_ITS | Encounter Summary ---
Author Name [facility] ([place]) Organization [facility] Address [address] [place] [id number] Care Team Providers Care Milk Powder Grinder Name Role Phone BERTHA VERNONA Primary Care Provider Unavailabl e Insurance Providers: [...] ENID DO NOT USE Jan 01, 2006 [id number] DISHA MASON PATIENT ANTHEM BCBS OF CT (BLUECARD) MEDICARE SUPPLEMEN [place] PSUED O MEDEX BRONZ E Jan 01, 2006 [id number] DISHA MASON PATIENT [place] SUPPLEMEN [place] MEDEX BRONZ E Jan 01, 2006 [id number] [phone] DISHA MASON PAT[place] PSUED [place] MEDEX BRONZ E Jan 01, 2006 [id number] [phone] DISHA MASON PATIENT MEDICARE (WNR) MEDICARE (M) PART A Jul 04, 2000 PART A [id number] DISHA MASON PATIENT MEDICARE (WNR) MEDICARE (M) PART B Jul 04, 2000 PART B [id number] DISHA MASON PATIENT MEDICARE (WNR) MEDICARE (M) PART A Jul 04, 2000 PART A [id number] [phone] WIDISHA BOO PATIENT MEDICARE (WNR) MEDICARE (M) PART B Jul 04, 2000 PART B [id number] [phone] WIDISHA BOO PATIENT MEDICARE (WNR) MEDICARE (M) PART B Jul 04, 2000 PART B [id number] DISHA MASON PATIENT MEDICARE (WNR) MEDICARE (M) PART A Jul 04, 2000 PART A [id number] DISHA MASON PATIENT Selected Encounter This section includes the information on record at [place] for the Encounter. Date/Time Encounter Type Encounter Description Reason Pro vider Source Nov 19, 2024 01:56 PM Outpatient Encounter PRIMARY CARE/MEDICINE IHE Encounter Template Text not used by [place] Plan of Treatment: Future Appointments (+ 6 months) and Future Tests (+/- 45 days) The Plan of Treatment section includes future care activities for the patient from all [place] treatmentfacilities. This section includes future appointments and future orders which are active, pending or scheduled. Future Appointments This section includes appointments that were scheduled to occur 6 months from the date of the Encounter, up to a maximum of 20 appointments. The data comes from all [place] treatment facilities. Appointment Date/Time Appointment Type Appointme nt Facility Name Dec 21, 2024 02:00 PM AMBULATORY - [facility]ICINE [facility] Social History: Smoking Status (Most current) and [...] Greer vazquez Nov 20, 2023 02:00 PM [place]-TOBACCO NEVER USED [facility] Tobacco Use History This section includes a history of the smoking, or tobacco-related health factors, that were collected on or before the date of the Encounter. The data comes from the [place] facility where the Encounter took place. Date/Time Smoking Status/Tobacco Use Comment F acility Dec 10, 2022 01:00 PM VA-TOBACCO NEVER USED [place] [facility] [place] [facility] Nov 26, 2021 10:00 AM VA-TOBACCO NEVER USED [facility] [place] [facility] Jul 04, 2020 10:30 AM VA-TOBACCO NEVER USED [facility] [place] [facility] May 25, 2019 11:50 AM VA-TOBACCO NEVER USED [facility] [place] [facility] Jun 05, 2018 09:35 AM QUIT TOBACCO USE > 7 YEARS AGO [facility] [place] [facility] May 22, 2017 02:07 PM LIFETIME NON-TOBACCO USER [place] [facility] [place] [facility] Encounter Notes: All associated encounter notes This section contains the clinical notes associated to the Encounter. Date/Time Encounter Note(s) Provider Source Nov 19, 2024 01:56 PM ADMINISTRATIVE NOTE: LOCAL TITLE: ADMINISTRATIVE NOTE STANDARD TITLE: ADMINISTRATIVE NOTE DATE OF NOTE: NOV 19, 2024@13:56 ENTRY DATE: NOV 19, 2024@13:56:12 AUTHOR: LUNA WATTS EXP COSIGNER: URGENCY: STATUS: COMPLETED ADMINISTRATIVE NOTE Has ADDENDA IVANNA REACHED OUT TO ON TELEPHONE TO SCHEDULE AN APPOINTMENT WITH HIS PCP HE IS HAVING A MED ISSUE WITH THE DAILY DOSE THAT HIS PROVIDER HAS ADJUSTED FOR LORAZEPAM. STATED THAT HE DISAGREES WITH THIS DECISION AND DOES NOT WANT TO SCHEDULE AN APPT HE STATES HE HAS PREVIOUSLY MENTIONED THIS ISSUE AND ALSO HAS A DIFFICULTY BEING SEEN IN PERSON(CANNOT WALK FAR). ALSO DOES NOT KNOW HOW TO DO VIDEO APPOINTMENTS.DURING PHONE CONVERSATION HE ALSO STATED THAT HE HAS YET TO RECEIVE AN ORDER FOR LORAZEPAM THAT HE REQUESTED ON . PLEASE REACH OUT TO AT PROVIDED CALLBACK NUMBER # /kacey/ LUNA GONCALVES Signed: 11/19/2024 14:16 Receipt Acknowledged By: 11/19/2024 16:14 /es/ JUDAH VERNON D.O. PHYSICIAN 11/23/2024 10:57 /es/ WILLIE CA, MSN, RN, CNL PRIMARY CARE TEAM NURSE 11/19/2024 ADDENDUM STATUS: COMPLETED spoke at length with that i am following the recommendation of his new neurologist and recommend LOWER DOSE of lorazepam and less often. he is taking mainly at night to sleep- helps with his muscles and back. encouraged him to instead take tylenol PM or just tylenol at bedtime. he has been off of lorazepam for about 10 days- but has taken a few of his wifes pills. offered other medication like zoloft or celexa to help with anxieties- he refused. again disucssed rational of advanced age, increased confusion and risk for falls. shoudl use lower dose of lorazepam SPARINGLY. /es/ JUDAH VERNON D.O. PHYSICIAN Signed: 11/19/2024 16:31 LUNA WATTS [place] [facility]
== END 2024-11-24 16:20 | disposition home or self-care (01) ==
PROVIDERS: PCP Internal Medicine; Visit Provider Internal Medicine Cardiovascular Disease
DX: I25.118 Atherosclerotic heart disease of native coronary artery with other forms of angina pectoris (principal); I10 Essential (primary) hypertension; I45.2 Bifascicular block
CPT/HCPCS: 93010; 99214

== ENCOUNTER → 2024-11-24 15:52 | Outpatient (BNVA) | payer MEDICARE, SELFPAY | PROVIDERS: PCP Internal Medicine; Visit Provider Internal Medicine Cardiovascular Disease | DX: I20.89 Other forms of angina pectoris (principal); I25.10 Atherosclerotic heart disease of native coronary artery without angina pectoris; I10 Essential (primary) hypertension; I25.2 Old myocardial infarction | CPT/HCPCS: 93005; 99212 ==

== ENCOUNTER 2025-03-30 15:29 | Outpatient (AMB) | payer MEDICARE, SELFPAY ==
--- NOTE | 2025-03-30 15:37 | A.OFFVIS_ITS ---
Vital Signs 03/30/25 15:39 Height 5 ft 11 in Weight 235 lb 14.314 oz BMI 32.9 BP 120/70 Blood Pressure Location Lt brachial Position Sitting Pulse 66 Pulse Source Pulse Oximeter Intake Visit Reasons: 6m follow up Intake Note: 6 mth f/up Trigonometry Teacher Required: No Accompanied by: Son Allergies Penicillin Allergy (Unknown, Uncoded 04/22/23 14:41) hives Medication List - Last Reconciled 03/30/25 by Carmelo Mosley MD aspirin (Adult Low Dose Aspirin) 81 mg PO DAILY atorvastatin 40 mg PO DAILY cholecalciferol (vitamin D3) 25 mcg PO DAILY furosemide (Lasix) 20 mg PO DAILY lorazepam 1 mg PO TID PRN metoprolol succinate ER 50 mg PO DAILY pantoprazole 40 mg PO DAILY phenytoin sodium extended (Dilantin Extended) 100 mg PO TID saw palmetto 1,350 mg PO BID tamsulosin 0.4 mg PO DAILY vitamin B complex (B Complex-Vitamin B12 tablet) 1 tab PO DAILY HPI Comments Details: 89-year-old gentleman who is presenting for follow-up. He had NSTEMI in setting of septic shock and significantly elevated troponin levels with some dynamic EKG changes. He underwent stress testing followed by coronary CTA showed LAD disease. After discussion he was taken for cardiac catheterization. He was noticed to have diffuse LAD disease which on IFR pullback showed did not show any discrete area of stenosis and the gradient was diffuse. He was also not complaining of significant symptoms at the time he came for cardiac catheterization. We decided to medically treat him. His returning and is complaining of fatigue and tiredness. He is saying his starting some physiotherapy and exercise program. His blood pressure control is otherwise good. He is complaining of some numbness in the left hand fingers and will be discussing with his neurologist in 1 week. 03/17/24: He returns for follow-up. Unfortunately had a fall and broke his right hip. He had surgery but his leg length is slightly shortened the the left side and is waiting for special boot so he can walk around. He has bilateral lower extremity edema. Apparently the hydrochlorothiazide was substituted to Lasix 20 mg daily. He has no other symptoms. No dyspnea, chest pain orthopnea or PND. 11/24/2024: He is here for follow-up. He is complaining of hip pain after right hip fracture and saying that it did not heal completely. Due to lack of activity he has some shortness of breath with activities. Denying chest discomfort. Blood pressure well controlled. 06/22/2025: He is here for follow-up. He has experienced some palpitations since visit. He is denying any chest pains. No 60 shortness of breath. He is to be but inactive since surgery. He is in a wheelchair current in his knee that he has with a walker inside the house. [facility] Medical History Abnormal computed tomography angiography (CTA) HTN (hypertension) GERD (gastroesophageal reflux disease) Surgical History History of blepharoplasty History of back surgery History of neck surgery Hx of cataract surgery Family History Father CVD (cardiovascular disease) Social History Alcohol intake: never Patient Tobacco Use Status: Never used Tobacco Physical Exam Vital Signs: Last Vital Signs Pulse 66 03/30/25 15:39 BP 120/70 03/30/25 15:39 BMI result Body Mass Index 32.9 GENERAL APPEARANCE: in no acute distress, pleasant. NECK: no carotid bruit, no jugular venous distention. SKIN: no suspicious lesions, warm and dry. HEART: no murmurs, regular rhythm. LUNGS: clear to auscultation bilaterally. ABDOMEN: soft, nontender. PERIPHERAL PULSES: equal. NEUROLOGIC: No gross deficits, AAO X 3 Extremities: 1+ edema. Assessment & Plan Assessment & Plan (1) Stable angina: Code(s): I20.89 - Other forms of angina pectoris Category: Medical (2) PVC (premature ventricular contraction): Code(s): I49.3 - Ventricular premature depolarization Category: Medical (3) Coronary artery disease: Code(s): I25.10 - Atherosclerotic heart disease of [place] coronary artery without angina pectoris Category: Medical (4) Essential hypertension: Code(s): I10 - Essential (primary) hypertension Category: Medical Plan Pleasant 89-year-old gentleman who is here for follow-up. He has known history of coronary disease based on cardiac catheterization. Apparently had a type 2 LA in the setting of sepsis and subsequently underwent stress testing and then cardiac catheterization. He was noticed to have a moderate LAD stenosis which was diffuse disease and IFR was abnormal. We decided to medically manage him. He has done well with this strategy. He had hip fracture and continues to have some hip pain despite surgery. Overall his physical activity has gone down. He came in a wheelchair to the office today. He is complaining of some palpitations. We will arrange a 3 day Holter monitoring for him. Thank you for allowing me to participate in the care of your patient. Please feel free to contact me if you have any questions. Orders: Orders ECG 3 day holter monitor Today I49.3 - Ventricular premature depolarization Coding Level of Care Code Est Pt Level 4 (19087) Diagnoses Stable angina I20.89 PVC (premature ventricular contraction) I49.3 Coronary artery disease I25.10 Essential hypertension I10
[2025-03-30 15:39] VITALS: BP 120/70; PULSE 66; BMI 32.9
--- OUTSIDE RECORDS SUMMARY | 2025-03-30 16:03 | XMS_ITS ---
Author Organization [facility] on Care Team Providers Care Resistor Inspector Name Role Phone Pratima Alberts Unavailable Unavailable Danae Butler Unavailable Unavailable Jesse Dey Unavailable Unavailable Luz Marina Parrish Unavailable Unavailable Wilma Fang Unavailable Unavailable Donald Somers Unavailable Unavailable Taryn Ulloa Unavailable Unavailable Allergies and adverse reactions Code CodeSystem Substance Reaction Severity StartDate Concern Status 7984 RXNORM Penicillin Unknown 08/26/2023 active Care Team Name Role Address Phone Organization Dates Danae Butler PCP [address] [place] [address], [address], [place] (Office): : [facility] 08/27/2023 - 09/26/2023 Pratima Alberts [address] [place] [address], [id number], [place] (Office): [facility] 08/27/2023 - 09/26/2023 Jesse Dey [address] [place] [address], [facility], [place] (Office): [facility] 08/27/2023 - 09/26/2023 Luz Marina Parrish [address] [place] [address], [address], [place] (Office): [facility] 08/27/2023 - 09/26/2023 Wilma Fang [address] [place] [address], [id number], [place] (Office): [facility] 08/27/2023 - 09/26/2023 Donald Somers [address] [place], [address], [place] (Office): [facility] 08/27/2023 - 09/26/2023 Taryn Ulloa [address] [place] [address], [id number], [place] (Office): : [facility] 08/27/2023 - 09/26/2023 Immunizations Immunization Status Vaccine Details Vaccine Code CodeSystem Date Notes Influenza new Influenza, split virus, trivalent, injectable, contains preservative 141 CVX created date: 08/28/2023 consent date: 08/28/2023 Educated by carlos on 08/28/2023 TB 1 Step Mantoux (PPD) completed tuberculin skin test; unspecified formulation lotNumber: [id number] expiry: 10/03/2026 Mfg: tubersol Given 0.1 ml Left Forearm subcutaneously 98 CVX created date: 08/30/2023 consent date: 08/30/2023 administer ed date: 08/30/2023 Educated by Nargis Oneill on 08/30/2023 TB 2 Step Mantoux Skin Test normal tuberculin skin test; unspecified formulation 98 CVX created date: 12/12/2023 consent date: 12/11/2023 TB 2 Step Mantoux Skin Test completed tuberculin skin test; unspecified formulation lotNumber: [id number] expiry: 10/03/2026 Mfg: toxakj9u Given 0.1 ml Left Forearm subcutaneously Step 1 of Multi-step with next step required 98 CVX created date: 09/12/2023 consent date: 09/12/2023 administer ed date: 09/12/2023 Pneumococcal Polysaccharide Vaccine (PPSV23) completed pneumococcal polysaccharide vaccine, 23 valent 33 CVX created date: 08/27/2023 administer ed date: 05/28/2021 Verified in MIIS. TDAP( Tetanus/Diptheria /Perutssis) completed tetanus toxoid, reduced diphtheria toxoid, and acellular pertussis vaccine, adsorbed 115 CVX created date: 08/27/2023 administer ed date: 05/28/2021 Verified in MIIS. SARS-COV-2 (COVID-19) completed SARS-COV-2 (COVID-19) vaccine, mRNA, spike protein, LNP, preservative free, 100 mcg/0.5mL dose or 50 mcg/0.25mL dose Mfg: Moderna Step 2 of Multi-step with next step required 207 CVX created date: 08/27/2023 administer ed date: 12/15/2020 Verified in MIIS. SARS-COV-2 (COVID-19) completed SARS-COV-2 (COVID-19) vaccine, mRNA, spike protein, LNP, preservative free, 100 mcg/0.5mL dose or 50 mcg/0.25mL dose Mfg: Moderna Step 1 of Multi-step with next step required 207 CVX created date: 08/27/2023 administer ed date: 11/17/2020 Verified in MIIS. Prevnar 20 Pneumococcal conjugate (PCV20) new Pneumococcal conjugate vaccine 20-valent (PCV20), polysaccharide [id number] conjugate, adjuvant, preservative free 216 CVX created date: 08/28/2023 consent date: 08/28/2023 Educated by [email or web address] on 08/28/2023 SARS-COV-2 (COVID-19 BOOSTER) cancelled SARS-COV-2 (COVID-19) vaccine, mRNA, spike protein, LNP, preservative free, 50 mcg/0.5 mL dose 312 CVX created date: 09/03/2023 consent date: 09/23/2023 Educated by Soumya Murphy RN on 09/23/2023 SARS-COV-2 (COVID-19 BOOSTER) completed SARS-COV-2 (COVID-19) vaccine, mRNA, spike protein, LNP, preservative free, 100 mcg/0.5mL dose or 50 mcg/0.25mL dose Mfg: Moderna Booster #1 207 CVX created date: 08/27/2023 administer ed date: 10/13/2021 Verified in MIIS. RSV, bivalent, protein subunit RSVpreF, diluent rec new Respiratory syncytial virus (RSV), vaccine, bivalent, protein subunit RSV prefusion F, diluent reconstituted, 0.5 mL, preservative free 305 CVX created date: 08/28/2023 consent date: 08/28/2023 Educated by [email or web address] on 08/28/2023 Mental Status Section Date Assessment Total Score Description 09/26/2023 BIMS 15 cognitively int act CAM 0 No delirium ind icated PHQ-9 00 09/01/2023 BIMS 15 cognitively int act CAM 0 No delirium ind icated PHQ-9 09 mild depression Problems Problem # Description Date of onset Resolved Date Code CodeSystem Concern Status 1 DYSPHAGIA, OROPHARYNGEAL PHASE 08/28/[address] active 2 UNSPECIFIED FRACTURE OF RIGHT ACETABULUM, SUBSEQUENT ENCOUNTER FOR FRACTURE WITH ROUTINE HEALING 08/27/[address] active 3 ANXIETY DISORDER, UNSPECIFIED 08/26/[address] active 4 ATHEROSCLEROTIC HEART DISEASE OF [place] CORONARY ARTERY WITHOUT ANGINA PECTORIS 08/26/[address] active 5 BENIGN PROSTATIC HYPERPLASIA WITH LOWER URINARY TRACT SYMPTOMS 08/26/[address] active 6 CELLULITIS OF RIGHT LOWER LIMB 08/26/[address] active 7 CERVICAL DISC DISORDER WITH RADICULOPATHY, UNSPECIFIED CERVICAL REGION 08/26/[address] active 8 CHRONIC PAIN SYNDROME 08/26/[address] active 9 DEPRESSION, UNSPECIFIED 08/26/[address] active 10 DIFFICULTY IN WALKING, NOT ELSEWHERE CLASSIFIED 08/26/[address] active 11 DYSPHAGIA, UNSPECIFIED 08/26/[address] active 12 EPILEPSY, UNSPECIFIED, NOT INTRACTABLE, WITH STATUS EPILEPTICUS 08/26/[address] active 13 ESSENTIAL (PRIMARY) HYPERTENSION 08/26/[address] active 14 GASTRO-ESOPHAGEAL REFLUX DISEASE WITHOUT ESOPHAGITIS 08/26/[address] active 15 MUSCLE WEAKNESS (GENERALIZED) 08/26/[address] active 16 OTHER SPECIFIED FRACTURE OF RIGHT ACETABULUM, SUBSEQUENT ENCOUNTER FOR FRACTURE WITH ROUTINE HEALING 08/26/[address] active 17 PATHOLOGICAL FRACTURE, HIP, UNSPECIFIED, SEQUELA 08/26/[address] active 18 REPEATED FALLS 08/26/[address] active 19 RETENTION OF URINE, UNSPECIFIED 08/26/[address] active 20 UNSPECIFIED FRACTURE OF RIGHT PUBIS, SUBSEQUENT ENCOUNTER FOR FRACTURE WITH ROUTINE HEALING 08/26/[address] active Reason for Referral No Reasons for Referral Entered Social History Social History Observation Description Start Date End Date Code Code System Current Smoking Status Tobacco smoking consumption unknown 211379113 SNOMED CT Sex Assigned At Male 1935 10585-9 [facility] Gender Identity Vital Signs Code Code System Vitals Name Values and Units Timing Information 10121-2 [facility] Pain Level Value=0.0 09/26/2023 9279-1 [facility] Respiratory Rate Value=16.0 Units=/m in 09/26/2023 8462-4 [facility] Blood Pressure-Diastolic Value=61 Un its=mmHg 09/26/2023 8480-6 [facility] Blood Pressure-Systolic Bzzqj=426 Un its=mmHg 09/26/2023 8310-5 [facility] Body Temperature Value=97.2 Units=?? F 09/26/2023 8867-4 [facility] Heart rate Value=67.0 Units=/min 87387-8 [facility] O2 % BldC Oximetry Value=98.0 Units= % 09/26/2023 61655-7 [facility] Weight Ruzrq=252.0 Units=Lbs 8302-2 [facility] Height Value=67.0 Units=Inches 08/27/2023
== END 2025-03-30 16:01 | disposition home or self-care (01) ==
PROVIDERS: PCP Internal Medicine; Visit Provider Internal Medicine Cardiovascular Disease
DX: I11.9 Hypertensive heart disease without heart failure (principal); I25.118 Atherosclerotic heart disease of native coronary artery with other forms of angina pectoris; I49.3 Ventricular premature depolarization
CPT/HCPCS: 99214

== ENCOUNTER → 2025-03-30 15:29 | Outpatient (BNVA) | payer MEDICARE, SELFPAY | PROVIDERS: PCP Internal Medicine; Visit Provider Internal Medicine Cardiovascular Disease | DX: I25.118 Atherosclerotic heart disease of native coronary artery with other forms of angina pectoris (principal); I49.3 Ventricular premature depolarization; I10 Essential (primary) hypertension; I25.2 Old myocardial infarction | CPT/HCPCS: 99212 ==

== ENCOUNTER → 2025-04-21 13:27 | Outpatient (REF) | payer MEDICARE, SELFPAY ==
--- NOTE | 2025-04-21 13:30 | HM_ITS ---
Conclusion: 1. Patient was monitored for total period of 3 days 2. Baseline was normal sinus rhythm with average heart of 58 beats per minute 3. No significant pauses noted 4. Frequent PACs noted with total burden of 17% with 2 short episodes of SVE, longest lasting 8 beats 5. No patient reported events MTDD
--- OUTSIDE RECORDS SUMMARY | 2025-04-21 14:36 | XMS_ITS | Data Portability ---
Author Organization 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 >>>>>>>>>>>>Moira 2023 Evidence for myofascial etiology of left finger symptoms: Left middle trapezius includes vertical ropelike portion palpation of which, in the middle of it adjacent immediately to the scapula, reproduces the tingling numbness. I offered physical therapy. [facility] had referral to a local physical therapist AT on [address]. We agree I will put in referral there. If this does not work out because of [facility], I will defer to primary care for reproducing this referral to a physical therapist acceptable to the [place]. Medications per patient: Dilantin, tamsulosin, pantoprazole, metoprolol, [...] to primary care or psychiatry at the [place] for this. We have therefore discussed that I am not going to take over the lorazepam at the present time and that I defer to [place] healthcare providers. However, abrupt discontinuation of lorazepam [...] thoracic spine, May 09, 2024, reflects per [facility] radiology T11 epidural mass thought most likely [...] 6 months ramy Not available 10/14/2024 16:41:32 04/11/2025 04/11/2025 IMPRESSION: Seizure disorder, well-managed on Dilantin without side effects; Falls ~2009 onset of intermittent falls & May 09, 2024 brain MRI: Multiple cerebellar chronic hemorrhages unchanged from 2017. 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 -- April 11, 2025 no seizures. Continuing left hand finger numbness, declining to go to physical therapy. >>>>>>>>>>>>April 11, 2025 His seizures continue well treated on Dilantin. He mentions today that he is approved for Dilantin brand name. The pharmacist told him. I had not noted that from the referral note that I had at initial consultation October 14, 2024. In any case, as he is requesting this, and he is approved, I will put it through this way. I have no further directions to suggest for his intermittent left finger numbness. I do not suggest electrodiagnostic studies at this point given the clear myofascial nature that is at least a prominent part of his symptom. >>>>>>>>>>>>Moira 2023 Initial diagnostic and management pathways Evidence for myofascial etiology of left finger symptoms: Left middle trapezius includes vertical ropelike portion palpation of which, in the middle of it adjacent immediately to the scapula, reproduces the tingling numbness. I offered physical therapy. Although [place] [facility], he has not successfully had referral to a local physical therapist AT on [facility]. We agree I will put in referral there. If this does not work out because of his [facility], I will defer to primary care for reproducing this referral to a physical therapist acceptable to the [place]. Medications per patient: Dilantin, tamsulosin, pantoprazole, metoprolol, [...] to primary care or psychiatry at the [facility] for this. We have therefore discussed that I am not going to take over the lorazepam at the present time and that I defer to [place] healthcare providers. 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 I do not think this is causing symptoms from history the patient gives. I do not think further evaluation is indicated. >>>>>>>>>>>> PLAN Timothy Cantrell April 11, 2025 Seizure control: Dilantin extended release 100 mg capsules three times daily (Brand name, as requested by patient ; patient says he is approved Follow-up in 11 months [email or web address] Not available 04/11/2025 15:14:28 Plan of Treatment Reminders Order Date Submit Date Provider Last Modified By Organization Details Last Modified Time Details Appointments None recorded. Lab None recorded. Referral neurologic physical therapist referral - Physical therapy for myofascial release of left middle trapezius taut band medial to scapula, palpation of which recreates patient's problem: Intermitten t tingling numbness in fingers 2-3, sometimes digit one. 2023 024 [email or web address] - [address] [place], [place], [address], 5 13:19:18 Procedures None recorded. Surgeries None recorded. Imaging None recorded. Medication Orders Dilantin Extended 100 mg capsule 2024 025 [facility] #[id number], [address] [place], [address], 5 16:21:24 Dilantin Extended 100 mg capsule 2023 024 [id number], [address] [place], [address], 4 16:06:45 Patient TargetsNo targets recorded. Patient Instructions Encounter Date Encounter Id Patient Instructions Last Modified By Organization Details Last Modified Time 10/14/2024 [id number] Discussion acros s issues of diagnoses and management and same day associated chart review and management greater than 50% greater than 60 minutes [email or web address] Not available 10/14/2024 16:41:46 04/11/2025 [id number] PREVIOUS TREATMENTS: : Did not go & tnow() thinks it will not work: Physical therapy for myofascial release of left middle trapezius taut band medial to scapula, palpation of which recreates patient's problem: Intermittent tingling numbness in fingers 2-3, sometimes digit one. Two chronic conditions; prescription medication management mrossen Not available 04/11/2025 15:13:44 Reason for Referral Physical therapy for myofasc ial release of left middle trapezius taut band medial to scapula, palpation of which recreates patient's problem: Intermittent tingling numbness in fingers 2-3, sometimes digit one. Referring Physician: Timothy Arroyo, Neurology, Encounter Date: 10/14/2024 Procedures Surgical History Date Name Laterality Status Provider Name and Address Organization Details Recorded Time 04/11/2025 DATA REVIEW completed Timothy Arroyo MD [address] [place] [address] [place], [address], [facility] 04/11/2025 14:46:17 10/14/2024 DATA REVIEW completed Timothy Arroyo MD [address] [facility] [place], [address], [facility] 10/14/2024 16:40:08 Imaging Results None recorded. Procedure Notes None recorded. Medical Equipment None Reported. Allergies No known drug allergies Medications Name Sig Start Date Stop Date Status Note LastModified by Organization Details LastModified Time amoxicillin 500 mg capsule TAKE 1 CAPSULE BY MOUTH 3 TIMES A DAY UNTIL FINISHED active Not Available Not Available No t Available atorvastatin 40 mg tablet TAKE 1 TABLET ORALLY DAILY active Not Available Not Available No t Available metoprolol succinate ER 50 mg tablet,extende d release 24 hr 50 MG ORALLY DAILY active Not Available Not Available No t Available metoprolol succinate ER 100 mg tablet,extende d release 24 hr TAKE 1/2 TABLET BY MOUTH DAILY active Not Available Not Available No t Available amoxicillin 500 mg tablet TAKE 1 TABLET BY MOUTH 3 TIMES A DAY UNTIL FINISHED active Not Available Not Available No t Available oxycodone-acet aminophen 5 mg-325 mg tablet TAKE 1 TABLET BY MOUTH EVERY 6 HOURS OR NEEDED active Not Available Not Available No t [...] 1 TABLET BY MOUTH TWICE A DAY - 3 TIMES A DAY NEEDED FOR ANXIETY active Not Available Not Available No t Available aspirin active Not Available Not Avail able Not Available clopidogrel active Not Available Not A vailable Not Available pantoprazole active Not Available Not Available Not Available Dilantin Extended 100 mg capsule Take 1 capsule 3 times a day by oral route for 30 days. 2024 active Not Available Not Available Not Avai lable Vitals Date Recorded Body height Body mass index (BMI) Body weight Respiratory rate Provider Name and Address Organization Details Last Updated DateTime 10/14/2024 180.34 cm 31.2 kg/m2 502484.69 g 12 /min Rocio Vignesh [facility] 10/14/2024 15:09:07 Social History Question Answer Notes LastModified by Organizat ion Details LastModified Time Tobacco Smoking Status Never Smoker Rocio amador [facility] 10/14/2024 15:09:29 What Is Your Level Of Caffeine Consumption? Moderate Information not available 10/14/2024 What Is The Highest Grade Or Level Of School You Have Completed Or The Highest Degree You Have Received? [id number] Information not available 10/14/2024 Which Of Your Hands Is Dominant? Right Information not available 10/14/2024 Sex: Unknown Functional Status Question Answer Note LastModified by Organization D etails LastModified Time What is your level of alcohol consumption? None Information not available 10/14/2024 Mental Status None recorded. Family History Relationship Description Onset Age of this Age Resolved Age Notes LastModified by Organization Details LastModified Time Unspecified Relation Seizure Not available 15:09:18 Medical History Condition Response Claustrophobia N Hospitalizations N Head Trauma/Injury N High Blood Pressure or Hypertension Y Thyroid Problems N Brain Tumors N Depression N Lung Disease N COPD or emphysema N Encephalitis N Vitamin B12 deficiency N PTSD N Heart Attack ([place]) N Spine Problems N Obstructive Sleep Apnea N Alcoholism N Diabetes N Autoimmune disease N Bleeding Disorder N Arthritis N Tuberculosis N Cerebral Palsy N Developmental Problems N Neck Problems N Cancer N Back Problems N Stroke N Asthma N Heartburn, acid reflux, GERD Y Vitamin D Deficiency N Epilepsy/Seizures N Bipolar Disorder N Sleep Disorder N Hepatitis N Aneurysm N Liver Disease N Heart Disease N Headaches N Fibromyalgia N High Cholesterol or Hyperlipidemia Y Osteoporosis N Kidney Disease N Past Encounters Encounter ID Performer Location Encounter Start Date Encounter Closed Date Diagnosis/Indication Diagnosis SNOMED-CT Code Diagnosis ICD10 Code Diagnosis Note [id number] Timothy Arroyo MD [facility] [address] [place] [address] [place] [address] 10/14/2024 14:55:05 10/14/2024 16:42:55 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 [id number] Timothy Arroyo MD [facility] [address] [place] [address] [place] [address] 04/11/2025 14:18:51 04/11/2025 15:26:05 Focal onset epileptic seizure 37322138 G40.109 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 Health Concerns Section Related Observation LastModified by Organization Detai ls LastModified Time None Recorded Concern Status LastModified by Organization Details LastModified Time None Recorded Advance Directives Directive None Recorded Payers Insurance Date Sequence Insurance Name Policy Number Policy Rdz Covered Member ID Rdz Member ID Guarantor Name 08/30/2024 2 [place] [id number] Timothy Cantrell [id number] Timothy Cantrell 04/08/2025 [employer] [facility] [place] [facility] Timothy Cantrell [id number] Timothy Cantrell 08/30/2024 1 [place] [employer] Timothy Cantrell [id number] Timothy Cantrell Notes Date Note Type Note Provider Name and Address Organization Details Recorded Time 10/14/2024 text/html >>>>>>>>>>>>Dece mb er 2023 presenting symptomotology:Cooper Cantrell presents for initial neurology consultation for assessment and management of seizure disorder. Past history per chart includes hypercholesterolem ia, hypertension, myocardial infarctions, late 2009's cervical laminectomy after which he had gait problems, context May 09 2024 brain MRI, unchanged from August 01, 2017 reflecting chronic cerebellar hemorrhages; status post August 2023 hip fracture, falling before that, in wheelchair since then, GERD, hearing loss, vitamin D deficiency, anxiety. He is accompanied Ed Delia, longtime significant [...] It did not help. Timothy Arroyo MD [address] [place] [address] [place], [address], [facility] 10/14/2024 16:42:08 04/11/2025 text/html Neurology follow-up of seizure disorder. Past history per chart includes hypercholesterolem ia, hypertension, myocardial infarctions, late 2009's cervical laminectomy after which he had gait problems, context May 09 2024 brain MRI, unchanged from August 01, 2017 reflecting chronic cerebellar hemorrhages; status post August 2023 hip fracture, falling before that, in wheelchair since then, GERD, hearing loss, vitamin D deficiency, anxiety. He is accompanied Ed Delia, longtime significant other of patient's daughter. >>>>>>>>>>>>April 11, 2025Since October 14, 2024 Initial neurology consultation, he has had no seizures. He has continued on his Dilantin.He continues with tingling in his left fingers particularly if he leans back in the chair or pushes on a particular part of his back. In October 2024 encounter, I referred him for Physical therapy for myofascial release of left middle trapezius taut band medial to scapula, palpation of which recreates patient's problem: Intermittent tingling numbness in fingers 2-3, sometimes digit one.He has not gone. He says he does not think it will work.He has tightness in his bed and spreading throughout his body. He went to psychiatry at the [facility] and they gave him lorazepam and this helped. (he had wanted lorazepam for tension October 14, 2024 and I directed him to psychiatry.) this has stopped helping. It helps but not quite enough. I suggest he return to psychiatry and explain. >>>>>>>>>>>>[facility] er 2023 presenting symptomatology:He has had seizures, but they are well-managed now. He has not had a seizure in recent times. He takes Dilantin 100 mg capsules, 1 capsule three times a day and feels there are no side effects.Otherwise, his main problem is intermittent numbness in left-sided fingers 2 & 4, sometimes also digit 1. This has been going on for ~1 year. It tends to happen if he leans back on the left side of his back in a certain way. He also sometimes wakes with this. His previous neurologist gave him a carpal tunnel splint which he wore for about a week. It did not help. Timothy Arroyo MD [address] [place], [place] [address], [address], [facility] 04/11/2025 15:14:42
== END ==
LOC: HO.CARD 13:27
PROVIDERS: Visit Provider Internal Medicine Cardiovascular Disease
DX: I49.3 Ventricular premature depolarization (principal)
CPT/HCPCS: 93242

== ENCOUNTER → 2025-04-21 13:30 | Outpatient (BNV) | payer MEDICARE, SELFPAY | PROVIDERS: Visit Provider Internal Medicine Cardiovascular Disease | DX: I49.1 Atrial premature depolarization (principal) | CPT/HCPCS: 93244 ==

== ENCOUNTER 2025-07-13 13:28 | Outpatient (AMB) | payer MEDICARE, SELFPAY ==
[2025-07-13 13:30] VITALS: BP 148/74; PULSE 52; BMI 33.3
--- NOTE | 2025-07-13 13:30 | MHC.OFFVIS ---
Vital Signs 07/13/25 13:30 Height 5 ft 11 in Weight 238 lb 15.697 oz BMI 33.3 BP 148/74 H Blood Pressure Location Rt brachial Position Sitting Pulse 52 Pulse Source Pulse Oximeter Intake Visit Reasons: 4 mth f/up-holter Accompanied by: Son Allergies Penicillin Allergy (Unknown, Uncoded 04/22/23 14:41) hives Medication List - Last Reconciled 07/13/25 by Fredi Watson NP aspirin (Adult Low Dose Aspirin) 81 mg PO DAILY atorvastatin 40 mg PO DAILY cholecalciferol (vitamin D3) 25 mcg PO DAILY furosemide (Lasix) 20 mg PO DAILY lorazepam 1 mg PO TID PRN metoprolol succinate ER 50 mg PO DAILY pantoprazole 40 mg PO DAILY phenytoin sodium extended (Dilantin Extended) 100 mg PO TID saw palmetto 1,350 mg PO BID tamsulosin 0.4 mg PO DAILY vitamin B complex (B Complex-Vitamin B12 tablet) 1 tab PO DAILY HPI Comments Details: This is an 89-year-old male patient coming in for a follow-up visit, accompanied by his son. Patient with history of hypertension, right bundle branch block, PVCs, and coronary artery disease who had previously reported palpitations for which patient underwent a Holter study that showed high burden of PACs. Today, patient reports that he has been having increased palpitations and associated shortness of breath during rapid palpitations. Patient notes that he was seen 3 weeks ago at [facility] where patient was ruled out for ACS. No records at this time. Patient is otherwise denying any exertional chest pain, shortness of breath, dizziness, orthopnea, PND, presyncope, or syncope. Patient is reporting intermittent leg swelling which is improved currently. Patient is otherwise reporting compliance with all his medications and denies any signs of bleeding. [facility] Medical History Abnormal computed tomography angiography (CTA) HTN (hypertension) GERD (gastroesophageal reflux disease) Surgical History History of blepharoplasty History of back surgery History of neck surgery Hx of cataract surgery Family History Father CVD (cardiovascular disease) Social History Alcohol intake: never Patient Tobacco Use Status: Never used Tobacco Review of Systems Const Denies daytime sleepiness, Denies difficulty sleeping, Denies snoring, Denies stops breathing during sleep and Denies weakness Card Denies chest pain, Denies rapid heart rate, Denies irregular heart rhythm, Denies claudication, Denies leg edema, Denies lightheadedness, Denies palpitations, Reports dyspnea, Denies dyspnea on exertion, Denies orthopnea, Denies paroxysmal nocturnal dyspnea and Denies slow heart rate Resp Denies cough, Reports dyspnea, Denies dyspnea on exertion and Denies snoring GI Reports no additional complaints, Denies hematochezia, Denies change in stool character and Denies dyspepsia Musc Denies abnormal gait, Denies muscle weakness and Denies numbness Neuro Denies abnormal gait, Denies numbness and Denies weakness Endo Denies palpitations Physical Exam Vital Signs: Last Vital Signs Pulse 52 07/13/25 13:30 BP 148/74 H 07/13/25 13:30 BMI result Body Mass Index 33.3 Const General: cooperative, comfortable and no acute distress Orientation/consciousness: patient oriented x3 HEENT Head: Yes normal to inspection Neck Neck: Yes normal visual inspection, Yes trachea midline and Yes supple Chest Chest palpation & inspection: normal inspection of the chest Resp Effort & Inspection: normal respiratory effort Auscultation: clear to auscultation bilaterally, no crackles, no rales, no rhonchi and no wheezes Cardio Jugular venous distension: no JVD Palpation: normal PMI Rate: regular rate Rhythm: regular rhythm Heart sounds: S1 normal heart sound present, S2 normal heart sound present, no click, no gallops, no murmurs and no rubs Peripheral pulses: Peripheral pulses 2+ throughout GI Inspection: Yes normal to inspection Palpation (GI): Soft to palpation Auscultation: normal bowel sounds Skin General skin exam: no rashes or lesions noted Neuro General: patient oriented x3 Extrem Other: Bilateral trace edema General: Yes normal to inspection and No calf tenderness Psych Appearance: grossly normal Mental Status: mental status grossly normal Speech and movement: Normal speech and movement present Assessment & Plan Assessment & Plan (1) Palpitations: Code(s): R00.2 - Palpitations Category: Medical Plan: 04/21/2025-Holter study showed a baseline normal sinus rhythm with frequent PACs with a total burden of 17% with 2 short episodes of SV runs, and no pauses. Given the high burden of PACs and its association with AFib, we will get a 30 day cardiac event monitor to evaluate this. For now we will plan to increase the metoprolol to 100 mg daily. Adjustments to be made following the even monitor. Patient notes that due to his increased palpitations, he recently was seen at [facility] where he was ruled out for ACS and was discharged home. We will try and retrieve these records. (2) Shortness of breath: Code(s): R06.02 - Shortness of breath Plan: As above. (3) Coronary artery disease: Code(s): I25.10 - Atherosclerotic heart disease of [place] coronary artery without angina pectoris Category: Medical Plan: I in 1422-cardiac catheterization showed moderate LAD stenosis with an IFR at 0.91. Patient was to be managed medically and he has been tolerating this well. Continue lifelong aspirin therapy. Continue statin therapy with an LDL goal less than 70. (4) PAC (premature atrial contraction): Code(s): I49.1 - Atrial premature depolarization Category: Medical Plan: As above (5) Essential hypertension: Code(s): I10 - Essential (primary) hypertension Category: Medical Plan: Blood pressure today is elevated, however patient reports blood pressures at home has been stable. We will plan to bring patient back in for a blood pressure check with the nurse in 3 weeks. Advised monitoring blood pressures at home and maintaining a log of it. Advised heart healthy diet, regular exercise as tolerated, med compliance, and management of vascular risk factors. Follow-up after completion of event monitor. In the interim, patient will call the office with any concerns or change in symptoms. Advised to seek ER care in case of exertional chest pain not resolved with rest. This note was generated using voice recognition software. While every effort has been made to ensure accuracy and proper business education instructor, there may be occasional errors that could affect the content or meaning of the described symptoms. Orders: Orders ECG 30 day event monitor Today R00.2 - Palpitations Medications: Changed From metoprolol succinate ER 50 mg PO DAILY 90 tabs 3RF To metoprolol succinate ER 100 mg (2 x 50 mg) PO DAILY 90 tabs 3RF Coding Level of Care Code Est Pt Level 4 (20086) Complex EM visit Add On G2211 Diagnoses Palpitations R00.2 Shortness of breath R06.02 Coronary artery disease I25.10 PAC (premature atrial contraction) I49.1 Essential hypertension I10 Time Spent (min) 32 Comment Time spent in reviewing the chart, test results, assessment, counseling and documentation.
--- OUTSIDE RECORDS SUMMARY | 2025-07-13 16:30 | XMS_ITS | Encounter Summary ---
Author Organization [facility] Address [address] [place] [address] Phone Care Team Providers Care Gas Torch Solderer Name Role Phone Srinivas Montes De Oca MD Unavailable [phone] Naty Mooney MD Unavailable [phone] Michele Diego MD Unavailable Melchor Gomez BUSINESS ANALYST INTERN Unavailable [phone] Unknown, Unknown Primary Care Provider Swapnil Camarillo DO Primary Care Provider [phone] Rohan Finch DO Primary Care Provider [phone] Rj Diego MD Primary Care Provider Karla Gunn DO Primary Care Provider [phone] Encounter Details Date Type Department Care Team (Late st Contact Info) Description 05/04/2018 Procedure Pass [facility], Ct Scan - [facility] [address] [place] [address] Social History Tobacco Use Types Packs/Day Years Used Date Smoking Tobacco: Never Smokeless Tobacco: Never Alcohol Use Standard Drinks/Week Comments No 0 (1 standard drink = 0.6 oz pur e alcohol) Sex and Gender Information Value Date Recorded Sex Assigned at Male 10/13/2018 9:10 PM EST Legal Sex Male 10:15 PM EDT Gender Identity Male 10/13/2018 9:10 PM EST Sexual Orientation Straight 05/25/2024 1: 25 PM EDT documented as of this encounter Plan of Treatment Upcoming Encounters Date Type Department Care Team (Late st Contact Info) Description 09/16/2025 11:00 AM EST Office Visit [facility] Medicine [address] [place] [address] Leti Deleon MD [address] [facility], [address] [place] [address] [email or web address] 04/08/2060 Procedure Pass OR Admitting Dept - Virtual Department [address] [place] [address] documented as of this encounter Visit Diagnoses Not on filedocumented in this encounter Additional Health Concerns Infection Onset Date Last Indicated Resolved Time CoV-Risk 03/06/2023 03/06/2023 03/08/2023 1:47 PM EDT documented as of this encounter Care Teams Gas Torch Solderer Relationship Specialty Start Date End Date Unknown, Unknown, 15 [facility], 2nd [place] [address] PCP - General 02/20/18 05/11/18 Swapnil Finch DO [address] [place] [address] [email or web address] PCP - General Family Medicine 05/12/18 09/22/20 Rohan Finch DO [address] [place] [address] PCP - General Internal Medicine 09/23/20 08/16/21 Rj Diego MD [address] [place] [address] PCP - General Internal Medicine 08/17/21 03/15/24 Karla Gunn DO [address] [place] [address] PCP - General Internal Medicine 03/16/24 Srinivas Montes De Oca MD [address] [place] [address] Historical LMR Provider 08/19/17 Naty Mooney MD [address] [place] [address] Historical LMR Provider 08/19/17 Michele Diego MD [address] [place] [address] Historical LMR Provider 08/19/17 Melchor Gomez CNP [address] [place] [address] Historical LMR Provider 08/19/17 11/10/21 documented as of this encounter Additional Source Comments The information contained in this document represents components of the legal health record. It is not the complete legal health record.[facility]
--- OUTSIDE RECORDS SUMMARY | 2025-07-13 16:30 | XMS_ITS | Encounter Summary ---
Author Organization [facility] Address [address] [place] [address] Phone Care Team Providers Care Coppersmith Helper Name Role Phone Srinivas Montes De Oca MD Unavailable [phone] Naty Mooney MD Unavailable [phone] Michele Diego MD Unavailable Melchor Gomez MANAGER SITE Unavailable Swapnil Finch DO Primary Care Provider Rohan Finch DO Primary Care Provider [phone] Rj Diego MD Primary Care Provider Karla Gunn DO Primary Care Provider [phone] Encounter Details Date Type Department Care Team (Late st Contact Info) Description 10/04/2019 Procedure Pass OR Admitting Dept - Virtual Department [address] [place] [address] Social History Tobacco Use Types Packs/Day Years Used Date Smoking Tobacco: Never Smokeless Tobacco: Never Alcohol Use Standard Drinks/Week Comments Not Currently 0 (1 standard drink = 0.6 oz [...] Description 09/16/2025 11:00 AM EST Office Visit [facility] Medicine [address] [place] [address] Leti Deleon MD [address] [facility], [address] [place] [address] [email or web address] 04/08/2060 Procedure Pass OR Admitting Dept - Virtual Department [address] [place] [address] documented as of this encounter Visit Diagnoses Not on filedocumented in this encounter Additional Health Concerns Infection Onset Date Last Indicated Resolved Time CoV-Risk 03/06/2023 03/06/2023 03/08/2023 1:47 PM EDT documented as of this encounter Care Teams Coppersmith Helper Relationship Specialty Start Date End Date Swapnil Finch DO [address] [place] [address] [email or web address] PCP - General Family Medicine 05/12/18 09/22/20 Rohan Finch DO [address] [place] [address] PCP - General Internal Medicine 09/23/20 08/16/21 Rj Diego MD [address] [place] [address] PCP - General Internal Medicine 08/17/21 03/15/24 Karla Gunn DO [address] [place] [address] PCP - General Internal Medicine 03/16/24 Srinivas Montes De Oca MD [address] [place] [address] Historical LMR Provider 08/19/17 Nayt Mooney MD [address] [place] [address] [email or web address] Historical LMR Provider 08/19/17 Michele Diego MD [address] [place] [address] Historical LMR Provider 08/19/17 Melchor Gomez CNP [address] [place] [address] [email or web address] Historical LMR Provider 08/19/17 11/10/21 documented as of this encounter Additional Source Comments The information contained in this document represents components of the legal health record. It is not the complete legal health record.[facility]
--- OUTSIDE RECORDS SUMMARY | 2025-07-13 16:30 | XMS_ITS | Encounter Summary ---
Author Organization [facility] Address [address] [place] [address] Phone Care Team Providers Care Manager Contact Name Role Phone Srinivas Montes De Oca MD Unavailable [phone] Naty Mooney MD Unavailable Michele Diego MD Unavailable Melchor Gomez ENTRY LEVEL TRUCK DRIVER Unavailable [phone] Unknown, Unknown Primary Care Provider Swapnil Camarillo DO Primary Care Provider [phone] Rohan Finch DO Primary Care Provider [phone] Rj Diego MD Primary Care Provider Karla Gunn DO Primary Care Provider [phone] Encounter Details Date Type Department Care Team (Latest Contact Info) Description 05/04/2018 Transcribe Orders [facility] [address] [id number] Brenda Sanchez PA [address] [place], [place] [id number] Gas pain (Primary Dx); Abdominal pain, epigastric Social History Tobacco Use Types Packs/Day Years [...] Description 09/16/2025 11:00 AM EST Office Visit [facility] Medicine [address] [place] [address] Leti Deleon MD [address] [facility], [address] [place] [address] [email or web address] 04/08/2060 Procedure Pass OR Admitting Dept - Virtual Department [address] [place] [address] documented as of this encounter Results * Lipase (05/04/2018 10:15 AM EDT) LIPASE 33 16 - 63 U/L [facility] Blood 05/04/2018 10:1 5 AM EDT 05/04/2018 10:19 AM EDT us Brenda [facility] BLOOD ORDERABLES Final Result [address] [address] * (ABNORMAL) Comprehensive metabolic panel (05/04/2018 10:15 AM EDT) SODIUM 141 133 - 146 mmol/L [facility] POTASSIUM 4.7 3.3 - 5.1 mmol/L [facility] CHLORIDE 103 96 - 108 mmol/L [facility] CO2 26 21 - 35 mmol/L [facility] BUN 19 6 - 19 mg/dL [facility] CREATININE 0.80 0.5 - 1.5 mg/dL [facility] GLUCOSE 106(H) 70 - 99 mg/dL [facility] ALBUMIN 4.1 3.9 - 4.8 g/dL [facility] TOTAL PROTEIN 7.0 6.5 - 8.0 g/dL [facility] CALCIUM 9.4 8.4 - 10.3 mg/dL [facility] ALKALINE PHOSPHATASE 55 39 - 117 U/L [facility] TOTAL BILIRUBIN 0.3 0.0 - 1.2 mg/dL [facility] AST 31 0 - 37 U/L [facility] ALT 40 0 - 40 U/L [facility] GLOBULIN 2.9 1 - 4.8 g/dL [facility] EGFR 83 >59 mL/min/1.7 3m2 [facility] Comment:If patient is black, multiply result by 1.159. Estimated glomerular filtration rate calculated using the CKD-EPI equation. ANION GAP 17 10 - 20 mmol/L [facility] Blood 05/04/2018 10:1 5 AM EDT 05/04/2018 10:19 AM EDT us Brenda [facility] BLOOD ORDERABLES Final Result [facility] [address] [place] [address] * (ABNORMAL) CBC (05/04/2018 10:15 AM EDT) WBC 5.50 3.40 - 11.20 K/uL [facility] RBC 4.03(L) 4.50 - 5.50 M/uL [facility] HGB 13.3 13.0 - 17.0 g/dL [facility] HCT 39.4(L) 40.0 - 51.0 % [facility] PLT 158 130 - 400 K/uL [facility] MCV 97.8 79.0 - 98.0 fL [facility] MCH 33.0 27.0 - 34.8 pg [facility] MCHC 33.8 31.5 - 36.0 g/dL [facility] RDW 13.5 10.8 - 14.6 % [facility] MPV 11.1 9.4 - 12.4 fl [facility] NRBC 0.00 /100 WBCs [facility] ABSOLUTE NRBC 0.00 K/uL [facility] Blood 05/04/2018 10:1 5 AM EDT 05/04/2018 10:19 AM EDT us Brenda [facility] BLOOD ORDERABLES Final Result [facility] [address] [place] [address] documented in this encounter Visit Diagnoses Diagnosis Gas pain- Primary Flatulence, eructation, and gas pain Abdominal pain, epigastric documented in this encounter Additional Health Concerns Infection Onset Date Last Indicated Resolved Time CoV-Risk 03/06/2023 03/06/2023 03/08/2023 1:47 PM EDT documented as of this encounter Care Teams Manager Contact Relationship Specialty Start Date End Date Unknown, Unknown, 15 [facility], 2nd [place] [address] PCP - General 02/20/18 05/11/18 Swapnil Finch DO [address] [place] [address] [email or web address] PCP - General Family Medicine 05/12/18 09/22/20 Rohan Finch DO [address] [place] [address] PCP - General Internal Medicine 09/23/20 08/16/21 Rj Diego MD [address] [place] [address] PCP - General Internal Medicine 08/17/21 03/15/24 Karla Gunn DO [address] [place] [address] PCP - General Internal Medicine 03/16/24 Srinivas Montes De Oca MD [address] [place] [address] [place] [address] Historical LMR Provider 08/19/17 Naty Mooney MD [address] [place] [address] [email or web address] Historical LMR Provider 08/19/17 Michele Diego MD [address] [place] [address] Historical LMR Provider 08/19/17 Melchor Gomez CNP [address] [place] [address] [email or web address] Historical LMR Provider 08/19/17 11/10/21 documented as of this encounter Additional Source Comments The information contained in this document represents components of the legal health record. It is not the complete legal health record.[facility]
--- OUTSIDE RECORDS SUMMARY | 2025-07-13 16:31 | XMS_ITS | Encounter Summary ---
Author Organization [facility] Address [address] [place] [address] Phone Care Team Providers Care Milk Pickup Driver Name Role Phone Naty Mooney MD Unavailable [phone] Rj Diego MD Primary Care Provider Karla Gunn DO Primary Care Provider [phone] Encounter Details Date Type Department Care Team (Late st Contact Info) Description 08/21/2023 Procedure Pass [facility], Ct Scan - [address] [address] Social History Tobacco Use Types Packs/Day Years Used Date Smoking Tobacco: Never Smokeless Tobacco: Never Alcohol Use Standard Drinks/Week Comments Not Currently 0 (1 standard drink = 0.6 oz pur e alcohol) Home Health Assessment: Transportation Answer Date Recorded Lack of Transportation (Medical) No 03/24/2023 Lack of Transportation (Non-Medical) No 03/24/2023 Patient Unable or Declines to Respond No 03/24/2023 Education Answer Date Recorded Are you interested in more education? Not on lilly e 02/28/2023 Are you concerned about learning? Not on file 02/28/2023 No 02/28/2023 No 02/28/2023 Digital Access Answer Date Recorded No 03/27/2023 No 03/27/2023 Reliable internet access at home? Not on file 03/27/2023 Device with a working camera? Not on file Sex and Gender Information Value Date Recorded Sex Assigned at Male 10/13/2018 9:10 PM EST Legal Sex Male 10:15 PM EDT Gender Identity Male 10/13/2018 9:10 PM EST Sexual Orientation Straight 05/25/2024 1: 25 PM EDT documented as of this encounter Functional Status * Calculated C-SSRS Risk Score (Lifetime/Recent) Answer Date of Assessment Author No Risk Indicated 08/21/2023 7:33 PM EDT Deloris La RN * [place] Suicide Severity Rating Scale (Screener/Recent Self-Report) Question Answer Date of Assessment Author 1. Wish to be (Past 1 Month) No 08/21/2023 7:33 PM EDT Deloris Colindres RN 2. Non-Specific Active Suicidal Thoughts (Past 1 Month) No 08/21/2023 7:33 PM EDT Deloris Colindres RN 6. Suicidal Behavior (Lifetime) No 08/21/2023 7:33 PM EDT Deloris Colindres RN documented as of this encounter Plan of Treatment Upcoming Encounters Date Type Department Care Team (Late st Contact Info) Description 09/16/2025 11:00 AM EST Office Visit [facility] [address] [address] Leti Deleon MD [address] [place] [address], [address] [place] [address] [email or web address] 04/08/2060 Procedure Pass OR Admitting Dept - Virtual Department [address] [place] [address] documented as of this encounter Visit Diagnoses Not on filedocumented in this encounter Care Teams Milk Pickup Driver Relationship Specialty Start Date End Date Rj Diego MD [address] [place] [address] PCP - General Internal Medicine 08/17/21 03/15/24 Karla Gunn DO [address] [place] [address] PCP - General Internal Medicine 03/16/24 Naty Mooney MD 15 [facility], [address] [place] [address] [email or web address] Historical LMR Provider 08/19/17 documented as of this encounter Additional Source Comments The information contained in this document represents components of the legal health record. It is not the complete legal health record.[facility]
--- OUTSIDE RECORDS SUMMARY | 2025-07-13 16:31 | XMS_ITS | Encounter Summary ---
Author Organization [facility] Address [address] [place] [address] Phone Care Team Providers Care Cna Caregiver Name Role Phone Naty Mooney MD Unavailable [phone] Rj Diego MD Primary Care Provider Karla Gunn DO Primary Care Provider [phone] Encounter Details Date Type Department Care Team (Late st Contact Info) Description 08/21/2023 Procedure Pass [facility], Ct Scan - [address] [address] Social History Tobacco Use Types Packs/Day Years [...] 7:33 PM EDT Deloris La RN * [place] Suicide Severity Rating Scale (Screener/Recent Self-Report) Question [...] Description 09/16/2025 11:00 AM EST Office Visit [facility] [address] [address] Leti Deleon MD [address] [place] [address], [address] [place] [address] [email or web address] 04/08/2060 Procedure Pass OR Admitting Dept - Virtual Department [address] [place] [address] documented as of this encounter Visit Diagnoses Not on filedocumented in this encounter Care Teams Cna Caregiver Relationship Specialty Start Date End Date Rj Diego MD [address] [place] [address] PCP - General Internal Medicine 08/17/21 03/15/24 Karla Gunn DO [address] [place] [address] PCP - General Internal Medicine 03/16/24 Naty Mooney MD 15 [facility], [address] [place] [address] [email or web address] Historical LMR Provider 08/19/17 documented as of this encounter Additional Source Comments The information contained in this document represents components of the legal health record. It is not the complete legal health record.[facility]
--- OUTSIDE RECORDS SUMMARY | 2025-07-13 16:31 | XMS_ITS | Encounter Summary ---
Author Organization [facility] Address [address] [place] [address] Phone Care Team Providers Care Sales Project Manager Name Role Phone Srinivas Montes De Oca MD Unavailable Naty Mooney MD Unavailable Michele Diego MD Unavailable Melchor Gomez CAN SOLDERER Unavailable Swapnil Finch DO Primary Care Provider Rohan Finch DO Primary Care Provider Rj Diego MD Primary Care Provider [phone] Karla Gunn DO Primary Care Provider [phone] Encounter Details Date Type Department Care Team (Late st Contact Info) Description 08/04/2019 Ancillary Orders [facility], X-Ray - [facility] [address] [place] [address] Christiano Lua DO [address] [place] [address] [email or web address] .Mumumío Pain in thoracic spine; Low back pain, unspecified back pain laterality, unspecified chronicity, unspecified whether sciatica present Social History Tobacco Use Types Packs/Day Years [...] Description 09/16/2025 11:00 AM EST Office Visit [facility] [address] [place] [address] Leti Deleon MD [address] [facility], [address] [place] [address] [email or web address] 04/08/2060 Procedure Pass OR Admitting Dept - Virtual Department [address] [place] [address] documented as of this encounter Results * XR THORACIC SPINE 3 VIEW (08/04/2019 1:56 PM EDT) Anatomical Region Laterality Modality T-spine Radiographic Arminda ging 08/04/2019 2:28 PM EDT Impressions 08/04/2019 2:33 PM EDT Impression: Findings most indicative of diffuse etiopathic skeletal hyperostosis [id number] Narrative 08/04/2019 2:33 PM EDT COMPARISON: None Three views of the thoracic spine. FINDINGS: A moderate scoliotic curvature of the thoracolumbar spine convex to the right is present. Bridging syndesmophytes at multiple levels predominantly on the right lumbar and on the left n the left on the lower thoracic and upper lumbar levels. 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 There is no evidence of compression fracture. Procedure Note Samantha Spring MD - 08/04/2019 COMPARISON: None Three views of the thoracic spine. FINDINGS: A moderate scoliotic curvature of the thoracolumbar spine convex to theright is present. Bridging syndesmophytes at multiple levels predominantlyon the right lumbar and on the left n the left on the lower thoracic andupper lumbar levels. There is ankylosis along the anterior longitudinalligament from extensive length. There is no evidence of compression fracture. IMPRESSION: Impression: Findings most indicative of diffuse etiopathic skeletal [email or web address] us Christiano Lua DO IMG XR SPINE Final Result * XR LUMBOSACRAL SPINE 2-3 VIEWS (08/04/2019 1:56 PM EDT) Anatomical Region Laterality Modality L-spine Radiographic Arminda ging 08/04/2019 2:33 PM EDT Impressions 08/04/2019 2:37 PM EDT Impression: Evidence of old sacroiliitis and mild degenerative changes of the lumbar spine. POS: [id number] Narrative 08/04/2019 2:37 PM EDT Comparison: None 4 of the lumbar spine are obtained. Findings: A mild compensatory levoscoliosis of the lumbar spine is present this is convex to the left. Large anterior osteophytes are present at the L2 through 4 levels. The L5 level body. The disc spaces are maintained. Is transitional with the sacrum. The SI joints are largely fused The posterior elements are intact. Procedure Note Samantha Spring MD - 08/04/2019 Comparison: None 4 of the lumbar spine are obtained. Findings: A mild compensatory levoscoliosis of the lumbar spine is presentthis is convex to the left. Large anterior osteophytes are present at theL2 through 4 levels. The L5 level body. The disc spaces are maintained. Is transitional with the sacrum. The SI joints are largely fused The posterior elements are intact. IMPRESSION: Impression: Evidence of old sacroiliitis and mild degenerative changes ofthe lumbar spine. POS: [id number] Christiano Lua IMG XR SPINE Final Result documented in this encounter Visit Diagnoses Diagnosis Pain in thoracic spine Low back pain, unspecified back pain laterality, unspecified chronicity, unspecified whether sciatica present Pain in thoracic spine Low back pain, unspecified back pain laterality, unspecified chronicity, unspecified whether sciatica present Pain in thoracic spine Low back pain, unspecified back pain laterality, unspecified chronicity, unspecified whether sciatica present documented in this encounter Additional Health Concerns Infection Onset Date Last Indicated Resolved Time CoV-Risk 03/06/2023 03/06/2023 03/08/2023 1:47 PM EDT documented as of this encounter Care Teams Sales Project Manager Relationship Specialty Start Date End Date Swapnil Finch DO [address] [place] [address] [email or web address] PCP - General Family Medicine 05/12/18 09/22/20 Rohan Finch DO [address] [place] [address] PCP - General Internal Medicine 09/23/20 08/16/21 Rj Diego MD [address] [place] [address] PCP - General Internal Medicine 08/17/21 03/15/24 Karla Gunn DO [address] [place] [address] PCP - General Internal Medicine 03/16/24 Srinivas Montes De Oca MD [address] [place] [address] Historical LMR Provider 08/19/17 Naty Mooney MD [address] [facility], 2nd [place] [address] [email or web address] Historical LMR Provider 08/19/17 Michele Diego MD [address] [place] [address] Historical LMR Provider 08/19/17 Melchor Gomez CNP [address] [place] [address], [address] [place] [address] [email or web address] Historical LMR Provider 08/19/17 11/10/21 documented as of this encounter Additional Source Comments The information contained in this document represents components of the legal health record. It is not the complete legal health record.[facility]
--- OUTSIDE RECORDS SUMMARY | 2025-07-13 16:31 | XMS_ITS | Encounter Summary ---
Author Organization [facility] Address [address] [place] [address] Phone Care Team Providers Care Nut Steamer Name Role Phone Naty Mooney MD Unavailable [phone] Rj Diego MD Primary Care Provider [phone] Karla Gunn DO Primary Care Provider [phone] Encounter Details Date Type Department Care Team (Late st Contact Info) Description 03/07/2023 Procedure Pass [facility] [address] [place] [address] Social History Tobacco Use Types Packs/Day Years Used Date Smoking Tobacco: Never Smokeless Tobacco: Never Alcohol Use Standard Drinks/Week Comments Not Currently 0 (1 standard drink = 0.6 oz pur e alcohol) Education Answer Date Recorded Are you interested in more education? Not on lilly e 02/28/2023 Are you concerned about learning? Not on file 02/28/2023 No 02/28/2023 No 02/28/2023 Sex and Gender Information Value Date Recorded Sex Assigned at Male 10/13/2018 9:10 PM EST Legal Sex Male 10:15 PM EDT Gender Identity Male 10/13/2018 9:10 PM EST Sexual Orientation Straight 05/25/2024 1: 25 PM EDT documented as of this encounter Plan of Treatment Upcoming Encounters Date Type Department Care Team (Late st Contact Info) Description 09/16/2025 11:00 AM EST Office Visit [facility] [address] [place] [address] Leti Deleon MD [address] [facility], [address] [place] [address] [email or web address] 04/08/2060 Procedure Pass OR Admitting Dept - Virtual Department [address] [place] [address] documented as of this encounter Visit Diagnoses Not on filedocumented in this encounter Additional Health Concerns Infection Onset Date Last Indicated Resolved Time CoV-Risk 03/06/2023 03/06/2023 03/08/2023 1:47 PM EDT documented as of this encounter Care Teams Nut Steamer Relationship Specialty Start Date End Date Rj Diego MD [address] [place] [address] PCP - General Internal Medicine 08/17/21 03/15/24 Karla Gunn DO [address] [place] [address] PCP - General Internal Medicine 03/16/24 Naty Mooney MD [address] [place] [address], 2nd [place] [address] [email or web address] Historical LMR Provider 08/19/17 documented as of this encounter Additional Source Comments The information contained in this document represents components of the legal health record. It is not the complete legal health record.[facility]
--- OUTSIDE RECORDS SUMMARY | 2025-07-13 16:31 | XMS_ITS | Encounter Summary ---
Author Organization [facility] Address [address] [place] [address] Phone Care Team Providers Care Paying Teller Name Role Phone Srinivas Montes De Oca MD Unavailable Naty Mooney MD Unavailable [phone] Michele Diego MD Unavailable Melchor Gomez GEOLOGICAL SCOUT Unavailable [phone] Unknown, Unknown Primary Care Provider Swapnil Camarillo DO Primary Care Provider [phone] Rohan Finch DO Primary Care Provider [phone] Rj Diego MD Primary Care Provider Karla Gunn DO Primary Care Provider [phone] Encounter Details Date Type Department Care Team (Late st Contact Info) Description 02/20/2018 Procedure Pass [facility] Endoscopy Admitting Dept Virtual Department [address] [place], [place] [id number] Social History Tobacco Use Types Packs/Day Years [...] Description 09/16/2025 11:00 AM EST Office Visit [facility] Medicine [address] [place] [address] Leti Deleon MD [address] [facility], [address] [place] [address] [email or web address] 04/08/2060 Procedure Pass OR Admitting Dept - Virtual Department [address] [place] [address] documented as of this encounter Visit Diagnoses Not on filedocumented in this encounter Additional Health Concerns Infection Onset Date Last Indicated Resolved Time CoV-Risk 03/06/2023 03/06/2023 03/08/2023 1:47 PM EDT documented as of this encounter Care Teams Paying Teller Relationship Specialty Start Date End Date Unknown, Unknown, [address] [facility], 2nd [place] [address] PCP - General 02/20/18 05/11/18 Swapnil Finch DO [address] [place] [address] [email or web address] PCP - General Family Medicine 05/12/18 09/22/20 Rohan Finch DO [address] [place] [address] PCP - General Internal Medicine 09/23/20 08/16/21 Rj Diego MD [address] [place] [address] PCP - General Internal Medicine 08/17/21 03/15/24 Karla Gunn DO [address] [place] [address] PCP - General Internal Medicine 03/16/24 Srinivas Montes De Oca MD [address] [place] [address] Historical LMR Provider 08/19/17 Naty Monoey MD [address] [place] [address] [email or web address] Historical LMR Provider 08/19/17 Michele Diego MD [address] [place] [address] Historical LMR Provider 08/19/17 Meclhor Gomez CNP [address] [place] [address] [email or web address] Historical LMR Provider 08/19/17 11/10/21 documented as of this encounter Additional Source Comments The information contained in this document represents components of the legal health record. It is not the complete legal health record.[facility]
--- OUTSIDE RECORDS SUMMARY | 2025-07-13 16:31 | XMS_ITS | Encounter Summary ---
Author Organization [facility] Address [address] [place] [address] Phone Care Team Providers Care Panel Monitor Name Role Phone Srinivas Montes De Oca MD Unavailable Naty Mooney MD Unavailable Michele Diego MD Unavailable Melchor Gomez BUSINESS SYSTEM MANAGER Unavailable [phone] Swapnil Finch DO Primary Care Provider [phone] Rohan Finch DO Primary Care Provider Rj Diego MD Primary Care Provider Karla Gunn DO Primary Care Provider [phone] Encounter Details Date Type Department Care Team (Latest Contact Info) Description 07/21/2019 Transcribe Orders Virtual Department [address] [place] [address] Michele Medina MD [address] [place] [address] [email or web address] Neck pain (Primary Dx) Social History Tobacco Use Types Packs/Day Years [...] Description 09/16/2025 11:00 AM EST Office Visit [facility] [address] [place] [address] Leti Deleon MD [address] [facility], [address] [place] [address] [email or web address] 04/08/2060 Procedure Pass OR Admitting Dept - Virtual Department [address] [place] [address] documented as of this encounter Results * XR CERVICAL SPINE 2-3 VIEWS (07/21/2019 1:15 PM EDT) Anatomical Region Laterality Modality C-spine Radiographic Arminda ging 07/21/2019 1:31 PM EDT Impressions 07/21/2019 1:35 PM EDT 1. New minimal grade 1 spondylolisthesis of C3 without evidence of instability and stable grade 1 spondylolisthesis of C4. 2. Interval C3-4 laminectomy. 3. Stable cervical spondylosis as above. POS - [id number] Narrative 07/21/2019 1:35 PM EDT HISTORY: As above. No trauma. COMPARISON: CT neck 10/13/2019. CERVICAL RADIOGRAPH FINDINGS: Four lateral views with neutral, flexion and extension positions. Stable osteopenia. Stable moderate multilevel facet arthropathy, anterior wedging and endplate osteophytes from C4 to C7 and moderate disc space narrowing and C4-5 through C6- 7. Interval laminectomy at C3-4. Stable grade 1 spondylolisthesis of C4 measuring 1 mm with no progression with flexion. It corrects with extension. New 2 mm anterolisthesis of C3 in all positions without progression. No destructive bone lesions. Soft tissues are normal. Procedure Note Saira Dacosta MD - 07/21/2019 HISTORY: As above. No trauma. COMPARISON: CT neck 10/13/2019. CERVICAL RADIOGRAPH FINDINGS: Four lateral views with neutral, flexion and extension positions. Stableosteopenia. Stable moderate multilevel facet arthropathy, anteriorwedging and endplate osteophytes from C4 to C7 and moderate disc spacenarrowing and C4-5 through C6- 7. Interval laminectomy at C3-4. Stablegrade 1 spondylolisthesis of C4 measuring 1 mm with no progression withflexion. It corrects with extension. New 2 mm anterolisthesis of C3 inall positions without progression. No destructive bone lesions. Softtissues are normal. IMPRESSION: 1. New minimal grade 1 spondylolisthesis of C3 without evidence ofinstability and stable grade 1 spondylolisthesis of C4. 2. Interval C3-4 laminectomy. 3. Stable cervical spondylosis as above. POS - [id number] Michele Medina MD IMG XR SPINE Final R esult documented in this encounter Visit Diagnoses Diagnosis Neck pain- Primary Cervicalgia Neck pain Cervicalgia documented in this encounter Additional Health Concerns Infection Onset Date Last Indicated Resolved Time CoV-Risk 03/06/2023 03/06/2023 03/08/2023 1:47 PM EDT documented as of this encounter Care Teams Panel Monitor Relationship Specialty Start Date End Date Swapnil Finch DO [address] [place] [email or web address] PCP - General Family Medicine 05/12/18 09/22/20 Rohan Finch DO [address] [place] [address] PCP - General Internal Medicine 09/23/20 08/16/21 Rj Diego MD [address] [place] [address] PCP - General Internal Medicine 08/17/21 03/15/24 Karla Gunn DO [address] [place] [address] PCP - General Internal Medicine 03/16/24 Srinivas Montes De Oca MD [address] [place] [address] Historical LMR Provider 08/19/17 Naty Mooney MD [address] [place] [address] [email or web address] Historical LMR Provider 08/19/17 Michele Diego MD [address] [place] [address] Historical LMR Provider 08/19/17 Melchor Gomez, MONICA [address] [place] [address] [email or web address] Historical LMR Provider 08/19/17 11/10/21 documented as of this encounter Additional Source Comments The information contained in this document represents components of the legal health record. It is not the complete legal health record.[facility]
--- OUTSIDE RECORDS SUMMARY | 2025-07-13 16:31 | XMS_ITS | Encounter Summary ---
Author Organization [facility] Address [address] [facility] [place] [address] Phone Care Team Providers Care Floatlight Powder Mixer Name Role Phone Srinivas Montes De Oca MD Unavailable Naty Mooney MD Unavailable Michele Diego MD Unavailable Melchor Gomez MEDICAL UNIT SECRETARY Unavailable [phone] Swapnil Finch DO Primary Care Provider [phone] Rohan Finch DO Primary Care Provider Rj Diego MD Primary Care Provider Karla Gunn DO Primary Care Provider [phone] Encounter Details Date Type Department Care Team (Latest Contact Info) Description 09/17/2019 Transcribe Orders [facility] [address] [place] [address] [place] [address] Johnathon Lai MD [address] [place] [address] 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 04/08/2060 Procedure Pass OR Admitting Dept - Virtual Department [address] [place] [address] documented as of this encounter Results * (ABNORMAL) CBC and differential (09/17/2019 3:02 PM EST) WBC 5.06 3.40 - 11.20 K/uL [facility] RBC 4.04(L) 4.50 - 5.50 M/uL [facility] HGB 13.5 13.0 - 17.0 g/dL [facility] HCT 39.5(L) 40.0 - 51.0 % [facility] PLT 159 130 - 400 K/uL [facility] MCV 97.8 79.0 - 98.0 fL [facility] MCH 33.4 27.0 - 34.8 pg [facility] MCHC 34.2 31.5 - 36.0 g/dL [facility] RDW 13.4 10.8 - 14.6 % [facility] MPV 11.2 9.4 - 12.4 [facility] NRBC 0.00 0.00 /100 WBCs [facility] ABSOLUTE NRBC 0.00 0.00 K/uL [facility] DIFF METHOD Auto [facility] NEUTS 49.3 45.30 - 77.70 % [facility] LYMPHS 35.0 12.30 - 39.70 % [facility] MONOS 12.1 4.10 - 12.80 % [facility] EOS 2.6 0 - 7.2 % [facility] BASOS 0.8 0 - 2.80 % [facility] Granulocytes, immature (%) 0.2 0.0 - 0.9 % [facility] ABSOLUTE NEUTS 2.50 1.40 - 7.70 K/uL [facility] ABSOLUTE LYMPHS 1.77 0.60 - 3.20 K/uL [facility] ABSOLUTE MONOS 0.61(H) 0.11 - 0.59 K/uL [facility] ABSOLUTE EOS 0.13 0.01 - 0.50 K/uL [facility] ABSOLUTE BASOS 0.04 0.00 - 0.08 K/uL [facility] Granulocytes, immature 0.01 0.00 - 0.05 K/uL [facility] Blood 09/17/2019 3:02 PM EST 09/17/2019 3:04 PM EST us Johnathonclarissa Lai MD LAB BLOOD ORDERABLE S Final Result [address] [address] * (ABNORMAL) Dilantin level (09/17/2019 3:02 PM EST) DILANTIN 9.5(L) 10 - 20 ug/mL [facility] Blood 09/17/2019 3:02 PM EST 09/17/2019 3:04 PM EST us Johnathon Lai MD LAB BLOOD ORDERABLE S Final Result [address] [address] * Alanine aminotransferase (ALT) (09/17/2019 3:02 PM EST) ALT 26 0 - 40 U/L [facility] Blood 09/17/2019 3:02 PM EST 09/17/2019 3:04 PM EST Johnathon Lai MD LAB BLOOD ORDERABLE S Final Result [facility] [address] [place] [address] documented in this encounter Visit Diagnoses Diagnosis Complex partial seizures with consciousness impaired- Primary Localization-related (focal) (partial) epilepsy and epileptic syndromes with complex partial seizures, without mention of intractable epilepsy documented in this encounter Additional Health Concerns Infection Onset Date Last Indicated Resolved Time CoV-Risk 03/06/2023 03/06/2023 03/08/2023 1:47 PM EDT documented as of this encounter Care Teams Floatlight Powder Mixer Relationship Specialty Start Date End Date Swapnil Finch DO [address] [place] [address] [email or web address] PCP - General Family Medicine 05/12/18 09/22/20 Rohan Finch DO [address] [place] [address] PCP - General Internal Medicine 09/23/20 08/16/21 Rj Diego MD [address] [place] [address] PCP - General Internal Medicine 08/17/21 03/15/24 Karla Gunn DO [address] [place] [address] PCP - General Internal Medicine 03/16/24 Srinivas Montes De Oca MD [address] [place] [address] Historical LMR Provider 08/19/17 Naty Mooney MD [address] [place] [address] [email or web address] Historical LMR Provider 08/19/17 Michele Diego MD [address] [place] [address] Historical LMR Provider 08/19/17 Melchor Gomez CNP [address] [place] [address] [email or web address] Historical LMR Provider 08/19/17 11/10/21 documented as of this encounter Additional Source Comments The information contained in this document represents components of the legal health record. It is not the complete legal health record.[facility]
--- OUTSIDE RECORDS SUMMARY | 2025-07-13 16:31 | XMS_ITS | Clinical Summary ---
Author Organization [facility] it Address [address] [place] [address] Care Team Providers Care Administrative Assistant Office Manager Name Role Phone Rohan Finch MD Primary Care Provider [phone] Social History Tobacco Use Types Packs/Day Years Used Date Smoking Tobacco: Never Assessed Sex and Gender Information Value Date Recorded Sex Assigned at Not on file Legal Sex Male 9:58 AM EST Gender Identity Not on file Sexual Orientation Not on file Plan of Treatment Health Maintenance Due Date Last Done Comments DTaP,Tdap,and Td Vaccines (1 - Tdap) 1954 Pneumococcal Vaccine: 50+ Ye ars (1 of 1 - PCV) 1985 Zoster Vaccines (1 of 2) 1985 RSV Immunization Adult Patie nts (1 - 1-dose 75+ series) 2010 Cholesterol Screening (Lipid Panel) 08/25/2024 Falls Risk Assessment 08/25/2024 Social Influencers of Health Screening 08/25/2024 Depression Screening 11/03/2024 COVID-19 Vaccine (1 - 2023-2 5 season) 2025 Influenza Vaccine (#1) 2025 HIB Vaccines Aged Out No longer eligi ble based on patient's age to complete this topic HPV Vaccines Aged Out No longer eligi ble based on patient's age to complete this topic Hepatitis A Vaccines Aged Out No long er eligible based on patient's age to complete this topic Hepatitis B Vaccines Aged Out No long er eligible based on patient's age to complete this topic IPV Vaccines Aged Out No longer eligi ble based on patient's age to complete this topic MMR Vaccines Aged Out No longer eligi ble based on patient's age to complete this topic Meningococcal ACWY Vaccine Aged Out N o longer eligible based on patient's age to complete this topic Meningococcal B Vaccine Aged Out No l onger eligible based on patient's age to complete this topic RSV Immunization Patients Un brigida 20 months Aged Out No longer eligible b ased on patient's age to complete this topic Varicella Vaccines Aged Out No longer eligible based on patient's age to complete this topic Care Teams Administrative Assistant Office Manager Relationship Specialty Start Date End Date Rohan Finch MD [address] [place] [address] PCP - General Internal Medicine 01/12/19
--- OUTSIDE RECORDS SUMMARY | 2025-07-13 16:31 | XMS_ITS | Encounter Summary ---
Author Organization [facility] Address [address] [place] [address] Phone Care Team Providers Care Life Skills Specialist Name Role Phone Naty Mooney MD Unavailable [phone] Karla Gunn DO Primary Care Provider [phone] Encounter Details Date Type Department Care Team (Late st Contact Info) Description 04/30/2024 Procedure Pass [facility] Endoscopy Admitting Dept Virtual Department [address] [place] [address] Social History Tobacco Use Types Packs/Day Years Used Date Smoking Tobacco: Never Smokeless Tobacco: Never Alcohol Use Standard Drinks/Week Comments Not Currently 0 (1 standard drink = 0.6 oz pur e alcohol) Home Health Assessment: Transportation Answer Date Recorded Lack of Transportation (Medical) No 02/19/2024 Lack of Transportation (Non-Medical) No 02/19/2024 Patient Unable or Declines to Respond No 02/19/2024 Education Answer Date Recorded Are you interested [...] Description 09/16/2025 11:00 AM EST Office Visit [facility] [address] [place] [address] Leti Deleon MD [address] [facility], [address] [place] [address] [email or web address] 04/08/2060 Procedure Pass [place] Admitting Dept - Virtual Department [address] [place] [address] documented as of this encounter Visit Diagnoses Not on filedocumented in this encounter Care Teams Life Skills Specialist Relationship Specialty Start Date End Date Karla Gunn DO [address] [place] [address] PCP - General Internal Medicine 03/16/24 Naty Mooney MD [address] [facility], 2nd [place] [address] [email or web address] Historical LMR Provider 08/19/17 documented as of this encounter Additional Source Comments The information contained in this document represents components of the legal health record. It is not the complete legal health record.[facility]
--- OUTSIDE RECORDS SUMMARY | 2025-07-13 16:31 | XMS_ITS | Encounter Summary ---
Author Organization [facility] Address [address] [place] [address] Phone Care Team Providers Care Sole Layer Name Role Phone Naty Mooney MD Unavailable [phone] Karla Gunn DO Primary Care Provider [phone] Encounter Details Date Type Department Care Team (Late st Contact Info) Description 05/25/2024 Procedure Pass [facility], Ct Scan - [facility] [address] [place] [address] Social History Tobacco Use Types Packs/Day Years [...] with a working camera? Not on file Intimate Partner Violence Answer Date R ecorded Are you denied basic needs s uch as food, clothing, or medical care? No 05/25/2024 In the past 12 months have y ou been in a relationship with a person who hurts, threatens, or tries to control you? No 05/25/2024 Are you denied basic needs s uch as food, clothing, or medical care? No 05/25/2024 In the past 12 months have y ou been in a relationship with a person who hurts, threatens, or tries to control you? No 05/25/2024 Sex and Gender Information Value Date Recorded Sex Assigned at Male 10/13/2018 9:10 PM EST Legal Sex Male 10:15 PM EDT Gender Identity Male 10/13/2018 9:10 PM EST Sexual Orientation Straight 05/25/2024 1: 25 PM EDT documented as of this encounter Functional Status * Calculated C-SSRS Risk Score (Lifetime/Recent) Answer Date of Assessment Author No Risk Indicated 05/25/2024 1:04 PM EDT Major Benson RN * [place] Suicide Severity Rating Scale (Screener/Recent Self-Report) Question Answer Date of Assessment Author 1. Wish to be (Past 1 Month) No 024 1:04 PM EDT Major Fay, YUNIOR 2. Non-Specific Active Suici ally Thoughts (Past 1 Month) No 05/25/2024 1:04 PM EDT Frdea Fay, YUNIOR 6. Suicidal Behavior (Lifetime) No 1:04 PM EDT Major Fay RN documented as of this encounter Plan of Treatment Upcoming Encounters Date Type Department Care Team (Late st Contact Info) Description 09/16/2025 11:00 AM EST Office Visit [facility] [address] [place] [address] Leti Deleon MD [address] [facility], [address] [place] [address] [email or web address] 04/08/2060 Procedure Pass [place] Admitting Dept - Virtual Department [address] [place] [address] documented as of this encounter Visit Diagnoses Not on filedocumented in this encounter Care Teams Sole Layer Relationship Specialty Start Date End Date Karla Gunn DO [address] [place] [address] PCP - General Internal Medicine 03/16/24 Naty Mooney MD [address] [place] [address] [email or web address] Historical LMR Provider 08/19/17 documented as of this encounter Additional Source Comments The information contained in this document represents components of the legal health record. It is not the complete legal health record.[facility]
--- OUTSIDE RECORDS SUMMARY | 2025-07-13 16:31 | XMS_ITS | Encounter Summary ---
Author Organization [facility] Address [address] [facility] [address] [place] [address] Phone Care Team Providers Care Nutrient Management Specialist Name Role Phone Srinivas Montes De Oca MD Unavailable Naty Mooney MD Unavailable [phone] Michele Diego MD Unavailable Melchor Gomez SKIMMER Unavailable Rj Diego MD Primary Care Provider Karla Gunn DO Primary Care Provider [phone] Encounter Details Date Type Department Care Team (Late st Contact Info) Description 08/17/2021 Procedure Pass [facility] Endoscopy Admitting Dept Virtual Department [address] [place] [address] Social History Tobacco Use Types Packs/Day Years [...] Description 09/16/2025 11:00 AM EST Office Visit [facility] [address] [place] [address] Leti Deleon MD 234 [facility], [address] [place] [address] [email or web address] 04/08/2060 Procedure Pass [place] Admitting Dept - Virtual Department 30 [place] [address] documented as of this encounter Visit Diagnoses Not on filedocumented in this encounter Additional Health Concerns Infection Onset Date Last Indicated Resolved Time CoV-Risk 03/06/2023 03/06/2023 03/08/2023 1:47 PM EDT documented as of this encounter Care Teams Nutrient Management Specialist Relationship Specialty Start Date End Date Rj Diego MD [address] [place] [address] PCP - General Internal Medicine 08/17/21 03/15/24 Karla Gunn DO [address] [place] [address] PCP - General Internal Medicine 03/16/24 Srinivas Montes De Oca MD [address] [place] [address] Historical LMR Provider 08/19/17 Naty Mooney MD [address] [place] [address], [address] [place] [address] [email or web address] Historical LMR Provider 08/19/17 Michele Diego MD [address] [place] [address] Historical LMR Provider 08/19/17 Melchor Gomez CNP [address] [facility], [address] [place] [address] [email or web address] Historical LMR Provider 08/19/17 11/10/21 documented as of this encounter Additional Source Comments The information contained in this document represents components of the legal health record. It is not the complete legal health record.[facility]
--- OUTSIDE RECORDS SUMMARY | 2025-07-13 16:31 | XMS_ITS | Encounter Summary ---
Author Organization [facility] Address [address] [place] [address] Phone Care Team Providers Care Vp Sales Name Role Phone Naty Mooney MD Unavailable [phone] Karla Gunn DO Primary Care Provider [phone] Encounter Details Date Type Department Care Team (Late st Contact Info) Description 01/20/2025 Procedure Pass [facility]oscopy Admitting Dept Virtual Department 30 [place] [address] Social History Tobacco Use Types Packs/Day Years Used Date Smoking Tobacco: Never Smokeless Tobacco: Never Alcohol Use Standard Drinks/Week Comments Never 0 (1 standard drink = 0.6 oz [...] as food, clothing, or medical care? No 01/20/2025 In the past 12 months have y ou been in a relationship with a person who hurts, threatens, or tries to control you? No 01/20/2025 Are you denied basic needs s uch as food, clothing, or medical care? No 01/20/2025 In the past 12 months have y ou been in a relationship with a person who hurts, threatens, or tries to control you? No 01/20/2025 Sex and Gender Information Value Date Recorded Sex Assigned at Male 10/13/2018 9:10 PM EST Legal Sex Male 10:15 PM EDT Gender Identity Male 10/13/2018 9:10 PM EST Sexual Orientation Straight 05/25/2024 1: 25 PM EDT documented as of this encounter Plan of Treatment Upcoming Encounters Date Type Department Care Team (Late st Contact Info) Description 09/16/2025 11:00 AM EST Office Visit [facility] [address] [place] [address] Leti Deleon MD [address] [facility], [address] [place] [address] [email or web address] 04/08/2060 Procedure Pass [place] Admitting Dept - Virtual Department [address] [place] [address] documented as of this encounter Visit Diagnoses Not on filedocumented in this encounter Care Teams Vp Sales Relationship Specialty Start Date End Date Karla Gunn DO [address] [place] [address] PCP - General Internal Medicine 03/16/24 Naty Mooney MD [address] [place] [address], 2nd [place] [address] [email or web address] Historical LMR Provider 08/19/17 documented as of this encounter Additional Source Comments The information contained in this document represents components of the legal health record. It is not the complete legal health record.[facility]
--- OUTSIDE RECORDS SUMMARY | 2025-07-13 16:31 | XMS_ITS | Encounter Summary ---
Author Organization [facility] Address [address] [place] [address] Phone Care Team Providers Care Back Sizer Name Role Phone Naty Mooney MD Unavailable [phone] Rj Diego MD Primary Care Provider Karla Gunn DO Primary Care Provider [phone] Encounter Details Date Type Department Care Team (Late st Contact Info) Description 03/06/2023 Procedure Pass [facility], Ct Scan - [address] [address] Social History Tobacco Use Types Packs/Day Years [...] Date of Assessment Author No Risk Indicated 03/06/2023 5:08 PM EDT Chelo Partida RN * [place] Suicide Severity Rating Scale (Screener/Recent Self-Report) Question Answer Date of Assessment Author 1. Wish to be (Past 1 Month) No 023 5:08 PM EDT Chelo Partida RN 2. Non-Specific Active Suici ally Thoughts (Past 1 Month) No 03/06/2023 5:08 PM EDT Chelo Partida RN 6. Suicidal Behavior (Lifetime) No 5:08 PM EDT Chelo Partida RN documented as of this encounter Plan of Treatment Upcoming Encounters Date Type Department Care Team (Late st Contact Info) Description 09/16/2025 11:00 AM EST Office Visit [address] [address] Leti Deleon MD [address] [place] [address], [address] [place] [address] [email or web address] 04/08/2060 Procedure Pass OR Admitting Dept - Virtual Department [address] [place] [address] documented as of this encounter Visit Diagnoses Not on filedocumented in this encounter Additional Health Concerns Infection Onset Date Last Indicated Resolved Time CoV-Risk 03/06/2023 03/06/2023 03/08/2023 1:47 PM EDT documented as of this encounter Care Teams Back Sizer Relationship Specialty Start Date End Date Rj Diego MD [address] [place] [address] PCP - General Internal Medicine 08/17/21 03/15/24 Karla Gunn DO [address] [place] [address] PCP - General Internal Medicine 03/16/24 Naty Mooney MD 15 [facility], [address] [place] [address] [email or web address] Historical LMR Provider 08/19/17 documented as of this encounter Additional Source Comments The information contained in this document represents components of the legal health record. It is not the complete legal health record.[facility]
--- OUTSIDE RECORDS SUMMARY | 2025-07-13 16:31 | XMS_ITS | Encounter Summary ---
Author Organization [facility] Address [address] [facility] [address] [place] [address] Phone Care Team Providers Care Deicer Kit Assembler Name Role Phone Srinivas Montes De Oca MD Unavailable Naty Mooney MD Unavailable [phone] Michele Diego MD Unavailable Melchor Gomez INDUSTRIAL INSULATOR Unavailable [phone] Unknown, Unknown Primary Care Provider Swapnil Camarillo DO Primary Care Provider [phone] Rohan Finch DO Primary Care Provider [phone] Rj Diego MD Primary Care Provider Karla Gunn DO Primary Care Provider [phone] Reason for Referral * MRI/CAT Scan - Closed Specialty Diagnoses / Procedures Referred By Contjeromy t Referred To Contact Radiology Diagnoses Abdominal pain, epigastric Abdominal gas pain Procedures CT Abdomen/Pelvis Brenda Sanchez PA Phone: tel: fax: Referral ID Status Reason Start Date Expiration Date Visits Re quested Visits Authorized [id number] Closed 05/04/2018 05/04/2019 1 1 Encounter Details Date Type Department Care Team (Late Contact Info) Description 05/04/2018 Ancillary Orders Virtual Department [address] [place] [address] Brenda Sanchez PA 10 [place] [address] Abdominal pain, epigastric; Abdominal gas pain Social History Tobacco Use Types Packs/Day Years [...] Encounters Date Type Department Care Team (Late Contact Info) Description 09/16/2025 11:00 AM EST Office Visit [facility] 234 [place] [address] Leti Deleon MD 234 [facility], [address] [place] [address] [email or web address] 04/08/2060 Procedure Pass [place] Admitting Dept - Virtual Department [address] [place] [address] documented as of this encounter Results * CT ABDOMEN/PELVIS WITH CONTRAST (05/12/2018 10:45 AM EDT) Anatomical Region Laterality Modality Abdomen, Pelvis Computed Tomogra phy 05/12/2018 11:0 5 AM EDT Impressions 05/12/2018 11:12 AM EDT 1. Diverticulosis without evidence of diverticulitis. 2. Otherwise essentially normal CT abdomen and pelvis. Specifically no biliary or pancreatic pathology is evident. TOTAL CTDIvol: 62.8 mGy POS - [id number] Narrative 05/12/2018 11:12 AM EDT Automated Exposure Control. Multiplanar reconstructions.. Oral and IV contrast. Compare 10/11/[address] and 01/04/[address] FINDINGS: Pancreas well-visualized and no masses or signs of pancreatitis. No biliary dilatation, gallbladder wall thickening or calcified common duct or gallstones. Small left lobe hepatic cyst. No solid liver lesions or enlargement. No splenomegaly or masses. Chronic small right upper pole and left lower pole simple renal cortical cysts. No solid renal or adrenal masses. No stones or hydronephrosis. No evidence of pyelonephritis or cortical scarring. Ureters, bladder and prostate all unremarkable. Moderately severe diverticulosis predominantly in the sigmoid. No evidence of diverticulitis, inflammatory bowel disease, bowel mass or obstruction. Normal appendix well seen. No gastric or distal esophageal pathology. No ascites or adenopathy. Lung bases and pleural spaces clear. No acute or worrisome bony abnormalities. Procedure Note Garrison Bertrand MD - 05/12/2018 Automated Exposure Control. Multiplanar reconstructions.. Oral and IVcontrast. Compare 10/11/[address] and 01/04/[address] FINDINGS: Pancreas well-visualized and no masses or signs of pancreatitis. No biliary dilatation, gallbladder wall thickening or calcified commonduct or gallstones. Small left lobe hepatic cyst. No solid liver lesions or enlargement. No splenomegaly or masses. Chronic small right upper pole and left lower pole simple renal corticalcysts. No solid renal or adrenal masses. No stones or hydronephrosis. Noevidence of pyelonephritis or cortical scarring. Ureters, bladder andprostate all unremarkable. Moderately severe diverticulosis predominantly in the sigmoid. No evidenceof diverticulitis, inflammatory bowel disease, bowel mass or obstruction.Normal appendix well seen. No gastric or distal esophageal pathology. No ascites or adenopathy. Lung bases and pleural spaces clear. No acute or worrisome bony abnormalities. IMPRESSION: 1. Diverticulosis without evidence of diverticulitis. 2. Otherwise essentially normal CT abdomen and pelvis. Specifically nobiliary or pancreatic pathology is evident. TOTAL CTDIvol: 62.8 mGy POS - [id number] us Brenda ARTIS IMG CT ABD/PELVIS Final Res ult documented in this encounter Visit Diagnoses Diagnosis Abdominal pain, epigastric Abdominal gas pain Flatulence, eructation, and gas pain Abdominal pain, epigastric Abdominal gas pain Flatulence, eructation, and gas pain documented in this encounter Additional Health Concerns Infection Onset Date Last Indicated Resolved Time CoV-Risk 03/06/2023 03/06/2023 03/08/2023 1:47 PM EDT documented as of this encounter Care Teams Deicer Kit Assembler Relationship Specialty Start Date End Date Unknown, Unknown, [address] [address] PCP - General 02/20/18 05/11/18 Swapnil Finch DO [address] [place] [address] [email or web address] PCP - General Family Medicine 05/12/18 09/22/20 Rohan Finch DO 22 [place] [address] PCP - General Internal Medicine 09/23/20 08/16/21 Rj Diego MD [address] [place] [address] PCP - General Internal Medicine 08/17/21 03/15/24 Karla Gunn DO [address] [place] [address] PCP - General Internal Medicine 03/16/24 Srinivas Montes De Oca MD [address] [place] [address] Historical LMR Provider 08/19/17 Naty Mooney MD [address] [address] [email or web address] Historical LMR Provider 08/19/17 Michele Diego MD [address] [place] [address] Historical LMR Provider 08/19/17 Melchor Gomez CNP [address] [place] [address] [email or web address] Historical LMR Provider 08/19/17 11/10/21 documented as of this encounter Additional Source Comments The information contained in this document represents components of the legal health record. It is not the complete legal health record.[facility]
--- OUTSIDE RECORDS SUMMARY | 2025-07-13 16:31 | XMS_ITS | Encounter Summary ---
Author Organization [facility] Address [address] [place] [address] Phone Care Team Providers Care Monotype Keyboard Operator Name Role Phone Naty Mooney MD Unavailable [phone] Rj Diego MD Primary Care Provider Karla Gunn DO Primary Care Provider [phone] Encounter Details Date Type Department Care Team (Late st Contact Info) Description 03/06/2023 Procedure Pass [facility], Ct Scan - [address] [address] Social History Tobacco Use Types Packs/Day Years [...] 5:08 PM EDT Chelo Partida RN * [place] Suicide Severity Rating Scale (Screener/Recent Self-Report) Question [...] Description 09/16/2025 11:00 AM EST Office Visit [address] [address] Leti Deleon MD [address] [place] [address], [address] [place] [address] [email or web address] 04/08/2060 Procedure Pass [place] Admitting Dept - Virtual Department 30 [place] [address] documented as of this encounter Visit Diagnoses Not on filedocumented in this encounter Additional Health Concerns Infection Onset Date Last Indicated Resolved Time CoV-Risk 03/06/2023 03/06/2023 03/08/2023 1:47 PM EDT documented as of this encounter Care Teams Monotype Keyboard Operator Relationship Specialty Start Date End Date Rj Diego MD [address] [place] [address] PCP - General Internal Medicine 08/17/21 03/15/24 Karla Gunn DO [address] [place] [address] PCP - General Internal Medicine 03/16/24 Naty Mooney MD 15 [facility], [address] [place] [address] [email or web address] Historical LMR Provider 08/19/17 documented as of this encounter Additional Source Comments The information contained in this document represents components of the legal health record. It is not the complete legal health record.[facility]
--- OUTSIDE RECORDS SUMMARY | 2025-07-13 16:32 | XMS_ITS | Clinical Summary ---
Author Organization Formerly [facility] Address [address] [place] [address] Care Team Providers Care Death Clearance Coordinator Name Role Phone Pcp, No Primary Care Provider Unavailabl e Allergies Active Allergy Reactions Criticality Noted Date Comments Penicillins Unknown/Patient and Family Unable to Define Medium 08/22/2023 Medications multivitamin Tab tablet Take 1 tablet by mouth daily. Active aspirin 81 MG chewable tablet Chew 1 tablet (81 mg total) daily. Active atorvastatin (LIPITOR) 40 MG tablet Take 1 tablet (40 mg total) by mouth daily. Active cholecalciferol (CHOLECALCIFEROL ) 25 MCG (1000 UT) tablet Take 1 tablet (1,000 Units total) by mouth daily. Active clopidogrel (PLAVIX) 75 MG tablet Take 1 tablet (75 mg total) by mouth daily. Active cyanocobalamin (VITAMIN B12) 1000 MCG tablet Take 1 tablet (1,000 mcg total) by mouth daily. Active hydroCHLOROthiaz jayjay (HYDRODIURIL) 12.5 MG tablet Take 1 tablet (12.5 mg total) by mouth daily. Active hydrocortisone (ANUSOL-HC) 25 MG suppository Insert 1 suppository (25 mg total) into the rectum 2 (two) times a day. Active LORazepam (ATIVAN) 1 MG tablet Take 1 tablet (1 mg total) by mouth 2 (two) times a day as needed for anxiety. Active metoPROLOL SUCCINATE (TOPROL-XL) 50 MG 24 hr tablet Take 1 tablet (50 mg total) by mouth daily. Active PANTOprazole (PROTONIX) 40 MG EC tablet Take 1 tablet (40 mg total) by mouth every morning before breakfast. Active phenytoin (DILANTIN) 100 MG ER capsule Take by mouth 3 (three) times a day. Active psyllium (METAMUCIL) 0.52 g capsule Take 1 capsule (0.52 g total) by mouth daily. Active tamsulosin (FLOMAX) 0.4 MG capsule Take 1 capsule (0.4 mg total) by mouth daily. Active aluminum-magnesi um hydroxide-simeth icone (MYLANTA-MAX) suspensionIndica tions:Right hip pain Take 15 mL by mouth 4 times daily (every 6 hours) as needed for indigestion or heartburn. 3 Active polyethylene glycol 17 g packetIndication s:Right hip pain Take 1 packet (17 g total) by mouth daily as needed for constipation. 3 Active simethicone (MYLICON) 80 MG chewable tabletIndication s:Right hip pain Chew 1 tablet (80 mg total) 4 times daily (every 6 hours) as needed for flatulence. 3 Active acetaminophen (TYLENOL) 325 MG tabletIndication s:Right hip pain Take 2 tablets (650 mg total) by mouth 4 times daily (every 6 hours) as needed for mild pain, headaches or fever. 3 Active cefpodoxime (VANTIN) 200 MG tabletIndication s:Right hip pain Take 1 tablet (200 mg total) by mouth 2 (two) times a day. 3 Active enoxaparin (LOVENOX) 40 MG/0.4ML injectionIndicat ions:Right hip pain Inject 0.4 mL (40 mg total) under the skin daily. Start on 08/27 3 Active Active Problems Problem Noted Date Diagnosed Date Cellulitis 08/22/2023 Social History Tobacco Use Types Packs/Day Years Used Date Smoking Tobacco: Never Assessed Sex and Gender Information Value Date Recorded Sex Assigned at Male 08/22/2023 1:10 PM EDT Legal Sex Male 7:06 PM EST Gender Identity Male 08/22/2023 1:10 PM EDT Sexual Orientation Heterosexual (straight) 08/22 1:10 PM EDT Last Filed Vital Signs Vital Sign Reading Time Taken Comments Blood Pressure 110/58 08/26/2023 1:09 PM EDT Pulse 67 08/26/2023 1:09 PM EDT Temperature 36.5 C (97.7 F) 08/26/2023 1:09 PM EDT Respiratory Rate 18 08/26/2023 1:09 PM EDT Oxygen Saturation 96% 08/26/2023 1:09 PM EDT Inhaled Oxygen Concentration - - Weight 99.8 kg (220 lb) 08/22/2023 9:57 AM EDT Height 170.2 cm (5' 7 ) 08/22/2023 9:57 AM EDT Body Mass Index 34.46 08/22/2023 9:57 AM EDT Plan of Treatment Health Maintenance Due Date Last Done Comments Advance Care Planning 1935 DTaP/Tdap/Td Vaccines (1 - Tdap) 1954 Pneumococcal Vaccines 50+ (1 of 1 - PCV) 1985 Zoster (Shingles) Vaccine (1 of 2) 1985 RSV Vaccine 60 years and older and Patients (1 - 1-dose 75+ series) 2010 Influenza Vaccine 06/03/2025 08/27/2022, , 09/03/2017, Additional history exists COVID-19 Vaccine (2024- season) 2025 10/13/2021, 12/15/2020, 11/17/2020 Hepatitis B Vaccines Aged Out No long er eligible based on patient's age to complete this topic Insurance MEDICARE PART A & B [facility] MEDICARE PART A & B [facility] Member Subscriber Plan / Payer (Ef fective 2023-Present) Name:Timothy Cantrell Relation to Subscriber:Self Name:Timothy Cantrell Payer ID:[id number] Group ID:Not on file Type:Not on file Address: [facility] [employer] [id number] [place] Advance Directives * Full Code (Latest Code Status on File) Date Activated Date Inactivated Comments 08/22/2023 5:37 AM Care Teams Death Clearance Coordinator Relationship Specialty Start Date End Date Pcp, No [address] [place] [address] PCP - General 08/22/23
--- OUTSIDE RECORDS SUMMARY | 2025-07-13 16:32 | XMS_ITS | Encounter Summary ---
Author Organization [facility] Address [address] [place] [address] Phone Care Team Providers Care Ladle Builder Name Role Phone Naty Mooney MD Unavailable [phone] Rj Diego MD Primary Care Provider Karla Gunn DO Primary Care Provider [phone] Encounter Details Date Type Department Care Team (Late st Contact Info) Description 03/08/2023 Procedure Pass [facility], [address] [address] Social History Tobacco Use Types Packs/Day Years [...] 09/16/2025 11:00 AM EST Office Visit [facility] Medicine [address] [place] [address] Leti Deleon MD [address], [address] [place] [address] [email or web address] 04/08/2060 Procedure Pass [place] Admitting Dept - Virtual Department [address] [place] [address] documented as of this encounter Visit Diagnoses Not on filedocumented in this encounter Additional Health Concerns Infection Onset Date Last Indicated Resolved Time CoV-Risk 03/06/2023 03/06/2023 03/08/2023 1:47 PM EDT documented as of this encounter Care Teams Ladle Builder Relationship Specialty Start Date End Date Rj Diego MD [address] [place] [address] PCP - General Internal Medicine 08/17/21 03/15/24 Karla Gunn DO [address] [place] [address] PCP - General Internal Medicine 03/16/24 Naty Mooney MD [address] [place] [address], 2nd [place] [address] [email or web address] Historical LMR Provider 08/19/17 documented as of this encounter Additional Source Comments The information contained in this document represents components of the legal health record. It is not the complete legal health record.[facility]
--- OUTSIDE RECORDS SUMMARY | 2025-07-13 16:32 | XMS_ITS | Encounter Summary ---
Author Organization [facility] Address [address] [place] [address] Phone Care Team Providers Care Medical Lab Technician Name Role Phone Srinivas Montes De Oca MD Unavailable [phone] Naty Mooney MD Unavailable Michele Diego MD Unavailable Melchor Gomez NEMATOLOGY TEACHER Unavailable Rohan Finch DO Primary Care Provider Rj Diego MD Primary Care Provider Karla Gunn DO Primary Care Provider [phone] Encounter Details Date Type Department Care Team (Late st Contact Info) Description 10/23/2020 Procedure Pass [facility] Endoscopy Admitting Dept Virtual Department [address] [place] [address] Social History Tobacco Use Types Packs/Day Years [...] Description 09/16/2025 11:00 AM EST Office Visit [facility] Medicine [address] [place] [address] Leti Deleon MD [address], [address] [place] [address] [email or web address] 04/08/2060 Procedure Pass [place] Admitting Dept - Virtual Department [address] [place] [address] documented as of this encounter Visit Diagnoses Not on filedocumented in this encounter Additional Health Concerns Infection Onset Date Last Indicated Resolved Time CoV-Risk 03/06/2023 03/06/2023 03/08/2023 1:47 PM EDT documented as of this encounter Care Teams Medical Lab Technician Relationship Specialty Start Date End Date Rohan Finch DO [address] [place] [address] PCP - General Internal Medicine 09/23/20 08/16/21 Rj Diego MD [address] [place] [address] PCP - General Internal Medicine 08/17/21 03/15/24 Karla Gunn DO [address] [place] [address] PCP - General Internal Medicine 03/16/24 Srinivas Montes De Oca MD [address] [place] [address] Historical LMR Provider 08/19/17 Naty Mooney MD [address] [place] [address] [email or web address] Historical LMR Provider 08/19/17 Michele Diego MD [address] [place] [address] Historical LMR Provider 08/19/17 Melchor Gomez CNP [address] [place] [address] [email or web address] Historical LMR Provider 08/19/17 11/10/21 documented as of this encounter Additional Source Comments The information contained in this document represents components of the legal health record. It is not the complete legal health record.[facility]
--- OUTSIDE RECORDS SUMMARY | 2025-07-13 16:32 | XMS_ITS | Encounter Summary ---
Author Organization [facility] Address [address] [place] [address] Phone Care Team Providers Care Party Plan Sales Agent Name Role Phone Naty Mooney MD Unavailable [phone] Rj Diego MD Primary Care Provider Karla Gunn DO Primary Care Provider [phone] Encounter Details Date Type Department Care Team (Late st Contact Info) Description 03/10/2023 Procedure Pass [facility]ovascular And Interventional Radiology [address] [place] [address] Social History Tobacco Use Types Packs/Day Years [...] Description 09/16/2025 11:00 AM EST [facility] Medicine [address] [place] [address] Leti Deleon MD [address], [address] [place] [address] [email or web address] 04/08/2060 Procedure Pass [place] Admitting Dept - Virtual Department [address] [place] [phone] documented as of this encounter Visit Diagnoses Not on filedocumented in this encounter Care Teams Party Plan Sales Agent Relationship Specialty Start Date End Date Rj Diego MD [address] [place] [address] PCP - General Internal Medicine 08/17/21 03/15/24 Karla Gunn DO [address] [place] [address] PCP - General Internal Medicine 03/16/24 Naty Mooney MD [address] [place] [address], [address] [place] [address] [email or web address] Historical LMR Provider 08/19/17 documented as of this encounter Additional Source Comments The information contained in this document represents components of the legal health record. It is not the complete legal health record.[facility]
--- OUTSIDE RECORDS SUMMARY | 2025-07-13 16:32 | XMS_ITS ---
Author Name [facility] Organization Unknown Encounters Encounter Type Encounter Reason Primary Diagnosis Location Date Inpatient Pain in right hip Pain in right hip [facility] [employer] 08/22/2023 Care Team Organization Name Specialty Phone Email Start Date End [facility] 11/23/2023 [facility] 08/22/2023 01/19/2025 [email or web address] NO PCP Primary Care 08/22/2023 08/22/2023
--- OUTSIDE RECORDS SUMMARY | 2025-07-13 16:32 | XMS_ITS | Clinical Summary ---
Author Organization [facility] Address [address] [place] [address] Phone Care Team Providers Care Interactive Multimedia Designer Name Role Phone Naty Mooney MD Unavailable [phone] Karla Gunn DO Primary Care Provider [phone] Allergies Active Allergy Reactions Criticality Noted Date Comments Penicillin Hives 01/18/2016 Medications LORazepam (ATIVAN) 1 MG tablet Take 1 tablet by mouth 3 (three) times a day as needed for anxiety. 3 Active phenytoin (DILANTIN) 100 MG ER capsule Take 100 mg by mouth 3 (three) times a day. 3 Active cyanocobalamin (VIT B-12) 1000 MCG tablet Take 100 mcg by mouth daily. 3 Active saw palmetto 160 mg Cap Take 1 capsule by mouth daily. 900mg 3 Active tamsulosin (FLOMAX) 0.4 mg Cap Take 0.4 mg by mouth daily. 3 Active cholecalciferol (VITAMIN D3) 25 MCG (1,000 unit) tablet Take 1,000 Units by mouth daily. 3 Active atorvastatin (LIPITOR) 40 MG tablet Take 1 tablet (40 mg total) by mouth nightly at bedtime. 30 tablet 5 3 Active metoprolol succinate (TOPROL-XL) 100 MG 24 hr tablet Take 0.5 tablets (50 mg total) by mouth daily. 30 tablet 5 3 Active FA/mv,Ca,iron,m in/lycopene/lut (MULTIVITAL ORAL) Take 1 tablet by mouth daily. 3 Active acetaminophen (TYLENOL) 500 MG tablet Take 1,000 mg by mouth every 8 (eight) hours as needed for pain (specific location in comments). 3 Active magnesium hydroxide 400 mg/5 mL Susp Take 30 mL by mouth as needed (constipatio n). 3 Active phenazopyridine (PYRIDIUM) 100 MG tablet Take 100 mg by mouth 3 (three) times a day as needed for pain (specific location in comments). 3 Active furosemide (LASIX) 20 MG tablet 4 Active omeprazole (PRILOSEC) 20 MG capsule 20 mg. 4 Active aspirin 81 mg chewable tablet Take 81 mg by mouth daily. Active oxyCODONE-aceta minophen (PERCOCET) 5-325 mg per tablet TAKE 1 TABLET BY MOUTH EVERY 6 HOURS OR NEEDED 5 Active hydroCHLOROthia zide (HYDRODIURIL) 12.5 MG tablet Take 12.5 mg by mouth daily. 3 09/30/20 23 Discontinue d(Discontin ued by another clinician) cephalexin (KEFLEX) 500 MG capsule Take 1 capsule (500 mg total) by mouth 4 (four) times a day for 7 days. 28 capsule 5 06/17/20 25 Active Problems Problem Noted Date Diagnosed Date Benign essential hypertension 04/28/2023 Benign prostatic hyperplasia 04/28/2023 Bradycardia, unspecified 04/28/2023 023 Gastroesophageal reflux disease 04/28/2023 04/28/2023 Overview (04/28/2023): May 22, 2017 Entered By: ALEX TOBIN Comment: EGD/[place] 2015--Dr Rangel Panic attack 04/28/2023 04/28/2023 Vitamin D3 deficiency 04/28/2023 04/28/2023 Sensory hearing loss, bilateral 04/28/2023 04/28/2023 Angular cheilitis 03/10/2023 Assessment & Plan (03/10/2023 1:58 PM EDT): Will treat with topical clotrimazole Streptococcal skin infection 03/10/2023 Assessment & Plan (03/10/2023 2:36 PM EDT): Will treat what appears to be a streptococcal skin infection of the upper lip with topical mupirocin Bacteremia due to group B Streptococcus 03/06/20 Assessment & Plan (03/26/2023 4:52 PM EDT): The previously noted redness of the R anterior cooper has greatly improved. There are no longer purpuric lesions on the R medial ankle. Reviewed s/sx that would warrant emergent evaluation including fever, shaking chills, lymphangitic streaking, and worsening pain of the RLE. Follow-up with ID as needed. Assessment & Plan (03/14/2023 12:21 PM EDT): Discussed slightly worsened redness of the R anterior cooper and new purpuric lesions with mild excoriation on the R medial ankle with Dr. Barragan. Does not appear to be acutely infected nor does it appear to be a drug rash. May be due to increased swelling of the RLE. Encouraged pt to keep leg elevated above the groin as much as possible. Recommend follow-up with PCP in 1 week; if this is not possible, pt will follow-up with me in 2 weeks. Reviewed s/sx that would warrant emergent evaluation including: fever, shaking chills, lymphangitic streaking, and worsening pain of the RLE. Antibiotic (drug, dose, route of administration, and frequency): Ceftriaxone 2g IV every 24 hours Additional Antibiotic(s): None Stop Antibiotic and Remove PICC: On 03/21/2023 Dietary and Other Restrictions: none Watch for Potential Adverse Events: Rash, diarrhea Order Laboratories (tests, frequency, and stop date): CBC with diff and CMP weekly (on Mondays) on 03/17/23 Send Laboratory Results Electronically To: [facility] [place] Order Radiology: N/A ID Follow Up (provider and time): Cindy TAKINSON at 11:30am 03/14/23 If Patient Has Questions/Problems, Contact (ID or other): [facility] [place] Additional Information: ID will add ICD-10 OPAT code Z79.2 to the patient's Problem List. Assessment & Plan (03/10/2023 2:31 PM EDT): PICC line insertion is scheduled for today. Encouraged pt to elevate leg on pillow when in bed and on chair with pillows when out of bed. Antibiotic (drug, dose, route of administration, and frequency): Ceftriaxone 2g IV every 24 hours Additional Antibiotic(s): None Stop Antibiotic and Remove PICC: On 03/21/2023 Dietary and Other Restrictions: none Watch for Potential Adverse Events: Rash, diarrhea Order Laboratories (tests, frequency, and stop date): CBC with diff and CMP weekly (on Mondays) on 03/17/23 Send Laboratory Results Electronically To: [facility] [place] Order Radiology: N/A ID Follow Up (provider and time): Cindy ATKINSON at 11:30am 03/14/23 If Patient Has Questions/Problems, Contact (ID or other): [facility] [place] Additional Information: ID will add ICD-10 OPAT code Z79.2 to the patient's Problem List. Assessment & Plan (03/10/2023 11:56 AM EDT): Presented to the ED with fever, because initially unclear. Blood cultures ultimately demonstrated 4/4 bottles strep agalactiae. Patient describes extreme shaking chills/rigors before presentation On exam, question of mild cellulitis of the right lower extremity. This could be a potential source TTE shows no vegetation. He improving with current management. Repeat blood cultures NGTD. White blood cell count now normal. No evidence of DVT on LE ultrasound --- Cont IV CTX to complete 14 day course --- PICC line --- will need arrangements for home infusion, VNA NSTEMI (non-ST elevated myocardial infarction) 0 03/06/2023 Assessment & Plan (03/10/2023 11:58 AM EDT): May be demand ischemia from systemic infection and abdominal pain Echo shows EF 65-70% and no clear wall motion abnormality. 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 Symptoms have improved. -- Plan observation and outpatient follow-up. If he has more postprandial pain, then IR evaluation for potential stenting History of rectal surgery 10/21/2019 Chronic idiopathic constipation 08/19/2019 Assessment & Plan (08/19/2019 11:52 AM EDT): The patient has been suffering for a long time with very significant rectal pain. This pain has increased by recent constipation. Plan is for the use of Protofoam, Colace, MiraLax, which we discussed. Epilepsy 11/03/1967 04/28/2023 Resolved Problems Problem Noted Date Diagnosed Date Resolved Date Bacteremia 03/07/2023 03/08/2023 Assessment & Plan (03/07/2023 10:51 AM EDT): Patient with 1 day history of sudden abdominal pain and shaking , found to have 4 out of 4 bottles of blood cultures from yesterday growing gram-positive cocci in chains. Beta-hemolytic strep is most likely, however Enterococcus is a possibility. Chest x-ray was clear, and chest CT showed some subtle abnormalities which could either be atelectasis or infection. Patient has no respiratory symptoms. Patient denies any difficulty urinating in the urinalysis appears benign. The erythema on the right cooper is quite subtle and I do not believe this is streptococcal cellulitis. Most prominent where the patient's symptoms of severe abdominal pain. 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 Recommendations 1. The patient was started on ceftriaxone overnight. I have added vancomycin until we have further information about the organisms growing in his blood. 3.Consult GI 4. Repeat COVID testing and use .CORAL to remove isolation if repeat testing is negative ID will continue to follow this patient. Please call if problems or questions arise. Anal fissure 08/19/2019 03/06/2023 Assessment & Plan (11/09/2019 12:55 PM EST): The patient is status post EUA and Botox done on 10/04/19 with continued irritation. He has been treating himself with cortisone suppositories and Tucks pads or alcohol pads and is feeling better. He did not want exam done today. Return on an as- needed basis. Assessment & Plan (10/21/2019 2:30 PM EST): The patient presents back following anorectal exam under anesthesia. He is having significant anal pain. There is a bit of excoriation. I recommend Poctosert suppositories as well as lidocaine jelly. He is moving his bowels now and is pleased with that. I will see him back in two weeks. Assessment & Plan (08/19/2019 11:49 AM EDT): The patient has been suffering for a long time with very significant rectal pain. He has an anal fissure and rectal spasm. Plan is for the use of Protofoam, Colace, MiraLax and anorectal exam under anesthesia and Botox sphincterotomy. I discussed with the patient the risks and benefits of anorectal exam under anesthesia and sphincterotomy including but not limited to the risks of infection, bleeding, recurrence, need for further surgery such as lateral surgical sphincterotomy, prolonged significant pain, damage to anal sphincter, and loss of continence. The patient understands these risks and wishes to proceed. Rectal spasm 08/19/2019 03/06/2023 Assessment & Plan (08/19/2019 11:50 AM EDT): The patient has been suffering for a long time with very significant rectal pain. He has an anal fissure and rectal spasm. Plan is for the use of Protofoam, Colace, MiraLax and anorectal exam under anesthesia and Botox sphincterotomy. Encounters Date Type Department Care Team Description 06/10/2025 7:56 PM EDT - 06/10/2025 11:14 PM EDT Emergency [facility] [address] [place] [address] Discharge Disposition: Home or Self Care from Last 3 Months Immunizations Immunization Administration Dates Next Due COVID-19 (Pre-08/25) Moderna Vaccine, mRNA, PF 10/13/2021,12/15/2020,11/17/2020 INFLUENZA, SPLIT VIRUS, TRIV ALENT W/ PRESERVATIVE IM 08/19/2011 Influenza High-Dose Quadriva lent Preservative Free IM 09/26/2021 Influenza Quadrivalent Adjuv anted Preservative Free IM 08/27/2022,08/25/2020 Influenza Quadrivalent w/ Preservative IM 2017 Influenza Recombinant Susan valent Preservative Free IM 08/19/2019 Influenza, Unspecified Formulation 08/03/2023, Pneumococcal polysaccharide PPSV23 05/28/2021, Pneumococcal, Unspecified Formulation 06/04/2022 Tdap 05/28/2021,09/16/2011 Social History Tobacco Use Types Packs/Day Years Used Date Smoking Tobacco: Never Smokeless Tobacco: Never Tobacco Cessation:Counseling Given: Not Answered Alcohol Use Standard Drinks/Week Comments Never 0 [...] as food, clothing, or medical care? No 06/10/2025 In the past 12 months have y ou been in a relationship with a person who hurts, threatens, or tries to control you? No 06/10/2025 Are you denied basic needs s uch as food, clothing, or medical care? No 06/10/2025 In the past 12 months have y ou been in a relationship with a person who hurts, threatens, or tries to control you? No 06/10/2025 Sex and Gender Information Value Date Recorded Sex Assigned at Male 10/13/2018 9:10 PM EST Legal Sex Male 10:15 PM EDT Gender Identity Male 10/13/2018 9:10 PM EST Sexual Orientation Straight 05/25/2024 1: 25 PM EDT Last Filed Vital Signs Vital Sign Reading Time Taken Comments Blood Pressure 143/87 06/10/2025 10:54 PM EDT Pulse 62 06/10/2025 10:54 PM EDT Temperature 36.2 C (97.2 F) 06/10/2025 10:54 PM EDT Respiratory Rate 17 06/10/2025 10:54 PM EDT Oxygen Saturation 100% 06/10/2025 10:54 PM EDT Inhaled Oxygen Concentration - - Weight 99.8 kg (220 lb) 06/10/2025 3:38 PM EDT Height 177.8 cm (5' 10 ) 06/10/2025 3:38 PM EDT Body Mass Index 31.57 06/10/2025 3:38 PM EDT Plan of Treatment Upcoming Encounters Date Type Department Care Team (Late st Contact Info) Description 09/16/2025 11:00 AM EST Office Visit [facility] [address] [place] [address] Leti Deleon MD [address] [facility] [facility], [address] [place] [address] [email or web address] 04/08/2060 Procedure Pass OR Admitting Dept - Virtual Department [address] [place] [address] Health Maintenance Due Date Last Done Comments DEPRESSION SCREENING 1947 ZOSTER VACCINES (1 of 2) 1985 RSV VACCINE (1 - 1-dose 75+ series) 2010 PHENYTOIN (DILANTIN) LEVEL 09/17/2020 09/17/2019 PNEUMOCOCCAL VACCINES (50+ years) (2 of 2 - PCV) 05/28/2022 05/28/2021, 09/16/2011 INFLUENZA VACCINE (#1) 2025 , 08/03/2023, 08/27/2022, Additional history exists COVID-19 VACCINE ( - season) 2025 10/13/2021, 12/15/2020, 11/17/2020 Adult Td,Tdap Booster 05/28/2031 05/28/2021, 011 HEPATITIS A VACCINES Aged Out No long er eligible based on patient's age to complete this topic HIB VACCINES Aged Out No longer eligi ble based on patient's age to complete this topic MENINGOCOCCAL VACCINES (ACWY) Aged Out No longer eligible based on patient's age to complete this topic MENINGOCOCCAL VACCINES (B) Aged Out N o longer eligible based on patient's age to complete this topic Medical Devices Not on file Procedures Procedure Name Priority Date/Time Associated Diagnosis Comments BASIC METABOLIC PANEL STAT 06/10/2025 9:02 PM EDT ECG 12-LEAD STAT 06/10/2025 8:45 PM EDT TROPONIN STAT 06/10/2025 5:17 PM EDT TSH WITH REFLEX Routine 06/10/2025 4:18 PM EDT C-REACTIVE PROTEIN Routine 06/10/2025 4: 18 PM EDT SEDIMENTATION RATE (ESR) Routine 06/10/2025 4:18 PM EDT TROPONIN STAT 06/10/2025 4:18 PM EDT BASIC METABOLIC PANEL STAT 06/10/2025 4:18 PM EDT CBC AND DIFFERENTIAL STAT 06/10/2025 4:18 PM EDT ECG 12-LEAD STAT 06/10/2025 3:35 PM EDT DILANTIN LEVEL Routine 09/17/2019 3:02 PM EST Complex partial seizures with consciousness impaired from Last 3 Months or Most Recently Relevant to Health Maintenance Results * (ABNORMAL) Basic metabolic panel (06/10/2025 9:02 PM EDT) Only the most recent of2 resultswithin the time period is included. SODIUM 140 133 - 146 mmol/L [facility] CHLORIDE 102 96 - 108 mmol/L [facility] POTASSIUM 4.0 3.3 - 5.1 mmol/L [facility] CO2 25 21 - 35 mmol/L [facility] BUN 20(H) 6 - 19 mg/dL [facility] CREATININE 0.90 0.5 - 1.5 mg/dL [facility] GLUCOSE 117(H) 70 - 99 mg/dL [facility] CALCIUM 9.4 8.4 - 10.3 mg/dL [facility] EGFR 82 >59 mL/min/1.7 3m2 [facility] Comment:Estimated glomerular filtration rate calculated using the CKD-EPI refit equation. ANION GAP 17 10 - 20 mmol/L [facility] Blood 06/10/2025 9:02 PM EDT 06/10/2025 9:15 PM EDT us Fela Obrien PA-C LAB BLOOD ORDERABLES Fi nal Result [facility] [address] [place] [address] * ECG 12-LEAD (06/10/2025 8:45 PM EDT) Only the most recent of2 resultswithin the time period is included. Ventricular Rate EKG/MIN 72 BPM [facility] Atrial Rate 72 BPM [facility] KS Interval 144 ms [facility] QRS Duration 138 ms [facility] QT Interval 474 ms [facility] QTC Interval 519 ms [facility] P [place] -21 degrees [facility] R Wave [place] -48 degrees [facility] T Wave [place] 5 degrees [facility] 06/10/2025 8:45 PM EDT 06/11/2025 5:20 PM EDT Narrative [facility] - 06/11/2025 5:20 PM EDT Sinus rhythm Right bundle branch block Left anterior fascicular block Bifascicular block Abnormal ECG When compared with ECG of 10-Jun-2025 15:35, Fusion complexes are now Present Premature ventricular complexes are now Present QT has lengthened Confirmed by Garrison ROY ([id number]) on 06/11/2025 5:20:37 PM us Fela Obrien PA-C ECG ORDERABLES Final R esult [facility] * (ABNORMAL) Troponin (06/10/2025 5:17 PM EDT) Only the most recent of2 resultswithin the time period is included. [facility] Troponin-T, HS Gen5 21(H) 0 - 14 ng/L [facility] Blood 06/10/2025 5:17 PM EDT 06/10/2025 5:23 PM EDT us Torito Calles MD LAB BLOOD ORDERABLES Final Result [address] [address] * TSH with reflex (06/10/2025 4:18 PM EDT) [facility] TSH 1.51 0.27 - 4.20 uIU/mL [facility] 06/10/2025 4:18 PM EDT 06/10/2025 4:47 PM EDT Torito Calles MD LAB BLOOD ORDERABLES Final Result Performing Organization Address City/[facility]/ZIP Co de Phone Number [address] [address] * Sedimentation rate (ESR) (06/10/2025 4:18 PM EDT) ESR 7 0 - 20 mm/h [facility] 06/10/2025 4:18 PM EDT 06/10/2025 4:47 PM EDT Torito Calles MD LAB BLOOD ORDERABLES Final Result Performing Organization Address [facility] Co de Phone Number [address] [address] * (ABNORMAL) CBC and differential (06/10/2025 4:18 PM EDT) WBC 7.02 4.00 - 11.00 K/uL [facility] RBC 3.81(L) 4.50 - 5.90 M/uL [facility] HGB 11.8(L) 13.5 - 17.5 g/dL [facility] HCT 36.6(L) 41.0 - 53.0 % [facility] PLT 149(L) 150 - 450 K/uL [facility] MCV 96.1 80.0 - 100.0 fL [facility] MCH 31.0 27.0 - 31.0 pg [facility] MCHC 32.2 32.0 - 36.0 g/dL [facility] RDW 14.4 11.5 - 14.5 % [facility] MPV 10.5 8.4 - 12.0 fL [facility] NRBC 0.00 0.00 /100 WBCs [facility] ABSOLUTE NRBC 0.00 0.00 K/uL [facility] DIFF METHOD Auto [facility] NEUTS 64.2 48.0 - 76.0 % [facility] LYMPHS 17.5(L) 18.0 - 41.0 % [facility] MONOS 13.5(H) 4.0 - 11.0 % [facility] EOS 4.1 0.0 - 5.0 % [facility] BASOS 0.4 0.0 - 1.5 % [facility] Granulocytes, immature (%) 0.3 0.0 - 0.9 % [facility] ABSOLUTE NEUTS 4.50 1.92 - 7.60 K/uL [facility] ABSOLUTE LYMPHS 1.23 0.72 - 4.10 K/uL [facility] ABSOLUTE MONOS 0.95 0.16 - 1.10 K/uL [facility] ABSOLUTE EOS 0.29 0.00 - 0.50 K/uL [facility] ABSOLUTE BASOS 0.03 0.00 - 0.15 K/uL [facility] Granulocytes, immature 0.02 0.00 - 0.09 K/uL [facility] Blood 06/10/2025 4:18 PM EDT 06/10/2025 4:47 PM EDT Torito Calles MD LAB BLOOD ORDERABLES Final Result [address] [address] * C-Reactive Protein (06/10/2025 4:18 PM EDT) C REACTIVE PROTEIN <3.0 0.0 - 4.0 mg/L [facility] 06/10/2025 4:18 PM EDT 06/10/2025 4:47 PM EDT Torito Calles MD LAB BLOOD ORDERABLES Final Result [address] [address] * (ABNORMAL) Dilantin level (09/17/2019 3:02 PM EST) DILANTIN 9.5(L) 10 - 20 ug/mL [facility] Blood 09/17/2019 3:02 PM EST 09/17/2019 3:04 PM EST Johnathon Lai MD LAB BLOOD ORDERABLE S Final Result [address] [address] from Last 3 Months or Most Recently Relevant to Health Maintenance Insurance MEDICARE PART A & B [employer] MEDEX SUPPLEMENT [facility] [place] [address] MEDICARE PART A & B [employer] MEDEX SUPPLEMENT [facility] MEDICARE PART A & B [employer] MEDEX SUPPLEMENT MEDICARE PART A & B [employer] CROSS MEDEX SUPPLEMENT Member Subscriber Plan / Payer (Ef fective 2000-Present) Name:Timothy Cantrell Relation to Subscriber:Self Name:Timothy Cantrell Payer ID:[id number] (NAIC) Type:Indemnity Address: [address] MEDICARE PART A & B [employer] MEDEX SUPPLEMENT [facility] MEDICARE PART A & B Hang w/ CROSS MEDEX SUPPLEMENT [facility] MEDICARE PART A & B [employer]OSS MEDEX SUPPLEMENT Member Subscriber Plan / Payer (Ef fective 2000-Present) Name:Timothy Canterll Relation to Subscriber:Self Name:Timothy Cantrell Payer ID:[id number] (NAIC) Type:Indemnity Address: [address] MEDICARE PART A & B [employer] CROSS MEDEX SUPPLEMENT Member Subscriber Plan / Payer ( fective 2000-Present) Name:Timothy Cantrell Relation to Subscriber:Self Name:Timothy Cantrell Payer ID:[id number] (NAIC) Type:Indemnity Address: [address] MEDICARE PART A & B [employer] MEDEX SUPPLEMENT [facility] Advance Directives For more information, please contact: [phone] (9AM - 5PM [facility], Friday-Friday) * Full Code (Latest Code Status on File) Date Activated Date Inactivated Comments 03/06/2023 9:30 PM Question Answer Comments Code Status Confirmed With: Patient * Full Code (Presumed) Date Activated Date Inactivated Comments 10/04/2019 8:57 AM 10/04/2019 2:24 PM Healthcare Agents on File Name Relationship Healthcare Agent Chandu shin Communication Araceli Hill Daughter .Primary Health Care Agent (Proxy form on file) Care Teams Interactive Multimedia Designer Relationship Specialty Start Date End Date Karla Gunn DO [address] [place] [id number] PCP - General Internal Medicine 03/16/24 Naty Mooney MD [address] [place] [address], [address] [place] [id number] [email or web address] Historical LMR Provider 08/19/17 Additional Source Comments The information contained in this document represents components of the legal health record. It is not the complete legal health record.[facility]
--- OUTSIDE RECORDS SUMMARY | 2025-07-13 16:32 | XMS_ITS | Encounter Summary ---
Author Organization [facility] Address [address] [place] [address] Phone Care Team Providers Care Psychologist Private Practice Name Role Phone Srinivas Montes De Oca MD Unavailable Naty Mooney MD Unavailable Michele Diego MD Unavailable Melchor Gomez [employer] Unavailable Swapnil Finch DO Primary Care Provider Rohan Finch DO Primary Care Provider Rj Diego MD Primary Care Provider Karla Gunn DO Primary Care Provider [phone] Encounter Details Date Type Department Care Team (Latest Contact Info) Description 09/08/2020 Transcribe Orders [facility] Laboratory [address] [address] Nataliia Mora NP [address] [place], [place] [id number] [email or web address] Dysphagia, pharyngoesophageal phase (Primary Dx); Dyspepsia; Constipation, unspecified constipation type; Nausea Social History Tobacco Use Types Packs/Day Years [...] Description 09/16/2025 11:00 AM EST Office Visit [facility] [address] [place] [address] Leti Deleon MD [address] [facility] [address], [address] [place] [address] [email or web address] 04/08/2060 Procedure Pass OR Admitting Dept - Virtual Department [address] [place] [id number] documented as of this encounter Results * Fecal immunochemical test x1 (FIT) (09/26/2020 10:44 AM EST) Immuno Fecal Occult Negative [facility] Stool (Stool) 09/26/2020 10: 44 AM EST 09/26/2020 10:45 AM EST us Nataliia Mora DIRECTOR STRATEGIC ACCOUNT MANAGEMENT BODY FLUIDS AND STOOLS ORDE RABBENJA Final Result [facility] [address] [place] [address] * C-Reactive Protein (09/08/2020 10:58 AM EST) C REACTIVE PROTEIN 0.8 0.0 - 4.0 mg/L [facility] Blood 09/08/2020 10:5 8 AM EST 09/08/2020 11:05 AM EST us Nataliia Mora DIRECTOR STRATEGIC ACCOUNT MANAGEMENT LAB BLOOD ORDERABLES Final Result [address] [address] * (ABNORMAL) Comprehensive metabolic panel (09/08/2020 10:58 AM EST) SODIUM 137 133 - 146 mmol/L [facility] POTASSIUM 4.8 3.3 - 5.1 mmol/L [facility] CHLORIDE 102 96 - 108 mmol/L [facility] CO2 24 21 - 35 mmol/L [facility] BUN 18 6 - 19 mg/dL [facility] CREATININE 0.70 0.5 - 1.5 mg/dL [facility] GLUCOSE 109(H) 70 - 99 mg/dL [facility] ALBUMIN 4.0 3.9 - 4.8 g/dL [facility] TOTAL PROTEIN 6.9 6.5 - 8.0 g/dL [facility] CALCIUM 9.2 8.4 - 10.3 mg/dL [facility] ALKALINE PHOSPHATASE 69 39 - 117 U/L [facility] TOTAL BILIRUBIN 0.3 0.0 - 1.2 mg/dL [facility] AST 38(H) 0 - 37 U/L [facility] ALT 40 0 - 40 U/L [facility] GLOBULIN 2.9 1 - 4.8 g/dL [facility] EGFR 86 >59 mL/min/1.7 3m2 [facility] Comment:Estimated glomerular filtration rate calculated using the CKD-EPI equation. ANION GAP 16 10 - 20 mmol/L [facility] Blood 09/08/2020 10:5 8 AM EST 09/08/2020 11:05 AM EST us Nataliia Mora NP LAB BLOOD ORDERABLES Final Result [address] [address] * (ABNORMAL) CBC and differential (09/08/2020 10:58 AM EST) WBC 4.98 4.00 - 11.00 K/uL [facility] Comment:Note Reference Range updates to all CBC and Differential results. RBC 3.73(L) 3.90 - 5.69 M/uL [facility] HGB 12.5 12.4 - 17.3 g/dL [facility] Comment:Note updated Referen ce Ranges for all CBC and Differential results. HCT 37.1 37.0 - 51.0 % [facility] PLT 163 140 - 430 K/uL [facility] MCV 99.5(H) 78.0 - 97.0 fL [facility] MCH 33.5(H) 25.0 - 33.0 pg [facility] MCHC 33.7 32.0 - 36.0 g/dL [facility] RDW 13.3 11.0 - 15.0 % [facility] MPV 10.7 8.4 - 12.8 fl [facility] NRBC 0.00 0 /100 WBCs [facility] ABSOLUTE NRBC 0.00 0 K/uL [facility] DIFF METHOD Auto [facility] NEUTS 49.0 43.0 - 75.0 % [facility] LYMPHS 34.9 18.2 - 47.4 % [facility] MONOS 12.7(H) 4.00 - 11.00 % [facility] EOS 2.6 0.0 - 8.0 % [facility] BASOS 0.6 0.0 - 2.0 % [facility] Granulocytes, immature (%) 0.2 0.0 - 0.9 % [facility] ABSOLUTE NEUTS 2.44 1.80 - 7.70 K/uL [facility] ABSOLUTE LYMPHS 1.74 1.00 - 3.10 K/uL [facility] ABSOLUTE MONOS 0.63 0.20 - 0.80 K/uL [facility] ABSOLUTE EOS 0.13 0.00 - 0.80 K/uL [facility] ABSOLUTE BASOS 0.03 0.00 - 0.09 K/uL [facility] Granulocytes, immature 0.01 0.00 - 0.05 K/uL [facility] Blood 09/08/2020 10:5 8 AM EST 09/08/2020 11:05 AM EST us Nataliia Mora NP LAB BLOOD ORDERABLES Final Result [address] [address] * Immunoglobulin A (09/08/2020 10:58 AM EST) IgA 387 70 - 400 mg/dL [facility] Blood 09/08/2020 10:5 8 AM EST 09/08/2020 11:05 AM EST Nataliia Mora DIRECTOR STRATEGIC ACCOUNT MANAGEMENT LAB BLOOD ORDERABLES Final Result Performing Organization Address [facility]/ZIP Co de Phone Number [address] [address] * Tissue transglutaminase IgA (09/08/2020 10:58 AM EST) Pathologist [facility] TTG IGA ANTIBODY <1.2 <4.0 (Negative) U/mL [facility] Blood 09/08/2020 10:5 8 AM EST 09/08/2020 11:05 AM EST Nataliia Mora DIRECTOR STRATEGIC ACCOUNT MANAGEMENT LAB BLOOD ORDERABLES Final Result Performing Organization Address [facility] de Phone Number [facility] [address] [address] [place] [address] documented in this encounter Visit Diagnoses Diagnosis Dysphagia, pharyngoesophageal phase- Primary Dyspepsia Dyspepsia and other specified disorders of function of stomach Constipation, unspecified constipation type Nausea Nausea alone documented in this encounter Additional Health Concerns Infection Onset Date Last Indicated Resolved Time CoV-Risk 03/06/2023 03/06/2023 03/08/2023 1:47 PM EDT documented as of this encounter Care Teams Psychologist Private Practice Relationship Specialty Start Date End Date Swapnil Finch DO [address] [place] [address] [email or web address] PCP - General Family Medicine 05/12/18 09/22/20 Rohan Finch DO [address] [place] [address] PCP - General Internal Medicine 09/23/20 08/16/21 Rj Diego MD [address] [place] [address] PCP - General Internal Medicine 08/17/21 03/15/24 Karla Gunn DO [address] [place] [address] PCP - General Internal Medicine 03/16/24 Srinivas Montes De Oca MD [address] [place] [address] Historical LMR Provider 08/19/17 Naty Mooney MD [address] [place] [address] Historical LMR Provider 08/19/17 Michele Diego MD [address] [place] [address] Historical LMR Provider 08/19/17 Melchor Gomez CNP [address] [place] [id number] Historical LMR Provider 08/19/17 11/10/21 documented as of this encounter Additional Source Comments The information contained in this document represents components of the legal health record. It is not the complete legal health record.[facility]
== END 2025-07-13 14:07 | disposition home or self-care (01) ==
LOC: HO.HCS 13:28
PROVIDERS: PCP Internal Medicine
DX: R00.2 Palpitations (principal); R06.02 Shortness of breath; I25.10 Atherosclerotic heart disease of native coronary artery without angina pectoris; I49.1 Atrial premature depolarization; I10 Essential (primary) hypertension
CPT/HCPCS: 99214; G2211